=== PATIENT | female | born 1940 | race Hispanic/Latino ===

== ENCOUNTER 2018-11-19 12:32 | Emergency (ER) | payer MEDICARE ==
--- NOTE | 2018-11-19 13:56 | RAD REPORT ---
EXAM DESCRIPTION: RAD -Hand Left 3 View - 11/19/2018 1:50 pm CLINICAL HISTORY: Left hand pain FINDINGS: No fracture or dislocation is seen. The bones are osteoporotic. 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 Mild osteoarthritis involves PIP joints.
--- NOTE | 2018-11-19 13:57 | RAD REPORT ---
EXAM DESCRIPTION: RAD - Wrist Left 3 View - 11/19/2018 1:51 pm CLINICAL HISTORY: Left wrist pain FINDINGS: No fracture or dislocation is seen. The bones are osteoporotic. Small subchondral cysts are noted about the wrist.
[2018-11-19] MEDS ORDERED: TRAMADOL HCL 50 MG TAB ONE (14:53)
[2018-11-19] MEDS ORDERED: IBUPROFEN 400 MG TAB ONE (14:54)
--- NOTE | 2018-11-19 14:54 | EDPHYS ---
Physician Documentation [facility] Name: Monica Fleming Age: 78 yrs Sex: Female : 1940 Arrival Date: 11/19/2018 Time: 12:33 Bed 12 Private MD: Eugenio Jaimes ED Physician Marcel Syed HPI: 11/19 14:47 This 78 yrs old Female presents to ER via Ambulatory with complaints of Hand cp Injury. 14:48 The patient or guardian reports pain, swelling, tenderness. The complaints affect the cp left wrist diffusely. Context: resulted from lifting weights while participating in water exercises. Onset: The symptoms/episode began/occurred 3 day(s) ago. Associated signs and symptoms: Pertinent negatives: cyanosis distally, decreased sensation distally. Historical: - Allergies: 12:45 No Known Allergies; sv - Home Meds: 12:45 alendronate 35 mg oral tab 1 tab once wkly [Active]; amlodipine 5 mg tab 1 tab once sv daily [Active]; metoprolol tartrate 50 mg Oral tab 1 tab 2 times per day [Active]; aspirin 81 mg Oral TbEC 1 tab once daily [Active]; Vitamin D3 2,000 unit oral cap daily [Active]; - PMHx: 12:45 Hypertension; sv - PSHx: 12:45 left knee; sv - Immunization history:: Adult Immunizations unknown. - Social history:: Smoking status: Patient/guardian denies using tobacco. - Ebola Screening: : No symptoms or risks identified at this time. ROS: 14:49 Eyes: Negative for injury, pain, redness, and discharge. cp 14:49 Constitutional: Negative for body aches, chills, fever, poor PO intake. 14:49 ENT: Negative for drainage from ear(s), ear pain, sore throat, difficulty swallowing, difficulty handling secretions. 14:49 Cardiovascular: Negative for chest pain, palpitations. 14:49 Respiratory: Negative for cough, shortness of breath, wheezing. 14:49 Abdomen/GI: Negative for abdominal pain, nausea, vomiting, and diarrhea. 14:49 MS/extremity: Positive for pain, swelling, tenderness, of the left wrist, Negative for decreased range of motion, deformity, paresthesias. 14:49 Skin: Negative for cellulitis, rash. 14:49 All other systems are negative. Exam: 14:50 Head/Face: Normocephalic, atraumatic. cp 14:50 Constitutional: The patient appears in no acute distress, alert, awake, non-toxic, well developed, well nourished. 14:50 Eyes: Periorbital structures: appear normal, Conjunctiva: normal, no exudate, no injection, Lids and lashes: appear normal, bilaterally. 14:50 ENT: External ear(s): are unremarkable, Nose: is normal, Mouth: is normal, Posterior pharynx: is normal, airway is patent. 14:50 Chest/axilla: Inspection: normal. 14:50 Cardiovascular: Rate: normal. 14:50 Respiratory: the patient does not display signs of respiratory distress, Respirations: normal. 14:50 Musculoskeletal/extremity: Perfusion: the extremity is normally perfused throughout, Sensation intact. Joints: All joints are normal except the left wrist displays pain at rest, painful range of motion, swelling, tenderness. 14:50 Skin: cellulitis, is not appreciated, no rash present. Vital Signs: 12:45 BP 110 / 70; Pulse 63; Resp 16; Temp 97.3; Pulse Ox 97% ; Weight 68.04 kg; Height 5 ft. sv 0 in. (152.40 cm); Pain 9/10; 12:45 Body Mass Index 29.29 (68.04 kg, 152.40 cm) sv Procedures: 15:00 Splinting: Splint applied to left wrist using wrist splint, applied by nurse. Examined cp by me, post splint application: neurovascular intact, Patient tolerated well. MDM: 14:26 Patient medically screened. cp 14:50 Differential diagnosis: dislocation, closed fracture, contusion, sprain. cp 14:52 Data reviewed: vital signs, nurses notes, radiologic studies, plain films. cp 14:52 Test interpretation: by ED physician or midlevel provider: plain radiologic studies. cp Counseling: I had a detailed discussion with the patient and/or guardian regarding: the historical points, exam findings, and any diagnostic results supporting the discharge/admit diagnosis, radiology results, to return to the emergency department if symptoms worsen or persist or if there are any questions or concerns that arise at home. 11/19 12:47 Order name: Hand Left 3 View XRAY; Complete Time: 14:37 sv 11/19 12:47 Order name: Wrist Left (3 View) XRAY; Complete Time: 14:37 sv 11/19 14:37 Order name: Wrist Splint: left; Complete Time: 14:54 cp Administered Medications: 14:53 Drug: Ibuprofen 800 mg Route: PO; aa5 15:00 Follow up: Response: Medication administered at discharge. aa5 14:54 Drug: traMADol 50 mg Route: PO; aa5 15:00 Follow up: Response: Medication administered at discharge. aa5 Disposition: 15:11 Co-signature as Attending Physician, Marcel Syed MD I agree with the assessment and kdr plan of care. Disposition: 11/19/18 14:53 Discharged to Home. Impression: Pain in left wrist, Pain in left hand. - Condition is Stable. - Discharge Instructions: Wrist Pain, Hand Pain. - Prescriptions for Ibuprofen 800 mg Oral Tablet - take 1 tablet by ORAL route every 8 hours As needed take with food; 30 tablet. Tramadol 50 mg Oral Tablet - take 1 tablet by ORAL route every 8 hours as needed; 12 tablet. - Medication Reconciliation Form, Thank You Letter, Antibiotic Education, Prescription Opioid Use form. - Follow up: Eugenio Jaimes MD; When: 5 - 6 days; Reason: Recheck today's complaints. - Problem is new. - Symptoms have improved. Signatures: Dispatcher [employer] EDTanisha Nobles RN RN dm5 Mackenzie Ta RN RN Marcel Syed MD MD [facility] Melisa Tee RN RN aa5 Brian Walker PA PA cp Corrections: (The following items were deleted from the chart) 14:55 14:53 11/19/2018 14:53 Discharged to Home. Impression: Pain in left wrist. Condition is cp Stable. Forms are Medication Reconciliation Form, Thank You Letter, Antibiotic Education, Prescription Opioid Use. Follow up: Eugenio Jaimes; When: 5 - 6 days; Reason: Recheck today's complaints. Problem is new. Symptoms have improved. cp 15:02 14:55 11/19/2018 14:53 Discharged to Home. Impression: Pain in left wrist; Pain in left dm5 hand. Condition is Stable. Discharge Instructions: Wrist Pain, Hand Pain. Prescriptions for Ibuprofen 800 mg Oral Tablet - take 1 tablet by ORAL route every 8 hours As needed take with food; 30 tablet, Tramadol 50 mg Oral Tablet - take 1 tablet by ORAL route every 8 hours as needed; 12 tablet. and Forms are Medication Reconciliation Form, Thank You Letter, Antibiotic Education, Prescription Opioid Use. Follow up: Eugenio Jaimes; When: 5 - 6 days; Reason: Recheck today's complaints. Problem is new. Symptoms have improved. cp
--- NOTE | 2018-11-19 14:54 | ER ---
Nurse's Notes [facility] Name: Monica Fleming Age: 78 yrs Sex: Female : 1940 Arrival Date: 11/19/2018 Time: 12:33 Bed 12 Private MD: Eugenio Jaimes Diagnosis: Pain in left wrist;Pain in left hand Presentation: 11/19 12:42 Presenting complaint: Patient states: left hand pain and swelling started Thursday after sv exercising with weights. Transition of care: patient was not received from another setting of care. Onset of symptoms was November 16, 2018. Care prior to arrival: None. 12:42 Method Of Arrival: Ambulatory sv 12:42 Acuity: KATHRINE 4 sv 14:28 Risk Assessment: Do you want to hurt yourself or someone else? Patient reports no aa5 desire to harm self or others. Initial Sepsis Screen: Does the patient meet any 2 criteria? No. Patient's initial sepsis screen is negative. Does the patient have a suspected source of infection? No. Patient's initial sepsis screen is negative. Triage Assessment: 12:46 General: Appears in no apparent distress. uncomfortable, Behavior is calm, cooperative, sv appropriate for age. Pain: Complains of pain in left wrist and left hand Pain currently is 9 out of 10 on a pain scale. Neuro: Level of Consciousness is awake, alert, obeys commands, Oriented to person, place, time, situation, Gait is steady. Respiratory: Respiratory effort is even, unlabored, Respiratory pattern is regular, symmetrical. Musculoskeletal: Swelling present in left wrist and left hand. Historical: - Allergies: 12:45 No Known Allergies; sv - Home Meds: 12:45 alendronate 35 mg oral tab 1 tab once wkly [Active]; amlodipine 5 mg tab 1 tab once sv daily [Active]; metoprolol tartrate 50 mg Oral tab 1 tab 2 times per day [Active]; aspirin 81 mg Oral TbEC 1 tab once daily [Active]; Vitamin D3 2,000 unit oral cap daily [Active]; - PMHx: 12:45 Hypertension; sv - PSHx: 12:45 left knee; sv - Immunization history:: Adult Immunizations unknown. - Social history:: Smoking status: Patient/guardian denies using tobacco. - Ebola Screening: : No symptoms or risks identified at this time. Screenin:28 Abuse screen: Denies threats or abuse. Nutritional screening: No deficits noted. aa5 Tuberculosis screening: No symptoms or risk factors identified. Fall Risk None identified. Assessment: 14:28 General: Appears comfortable, Behavior is calm, cooperative. Pain: Complains of pain in aa5 left hand and left wrist Pain currently is 8 out of 10 on a pain scale. Quality of pain is described as aching, Aggravated by ROM to left wrist. Neuro: Level of Consciousness is awake, alert, obeys commands, Oriented to person, place, time, situation. Cardiovascular: Heart tones S1 S2 present Capillary refill < 3 seconds is brisk in bilateral fingers Rhythm is regular. Respiratory: Airway is patent Respiratory effort is even, unlabored, Respiratory pattern is regular, symmetrical. GI: No signs and/or symptoms were reported involving the gastrointestinal system. : No signs and/or symptoms were reported regarding the genitourinary system. EENT: No signs and/or symptoms were reported regarding the EENT system. Derm: Skin is pink, warm \T\ dry. Musculoskeletal: Swelling present in left wrist. 14:54 Reassessment: Wrist splint applied to left wrist, pt tolerated well. . aa5 14:54 Reassessment: Patient is alert, oriented x 3, equal unlabored respirations, skin aa5 warm/dry/pink. Vital Signs: 12:45 BP 110 / 70; Pulse 63; Resp 16; Temp 97.3; Pulse Ox 97% ; Weight 68.04 kg; Height 5 ft. sv 0 in. (152.40 cm); Pain 9/10; 12:45 Body Mass Index 29.29 (68.04 kg, 152.40 cm) sv ED Course: 12:33 Patient arrived in ED. ag5 12:33 Eugenio Jaimes MD is Private Physician. ag5 12:42 Triage completed. sv 12:46 Arm band placed on Patient placed in waiting room, Patient notified of wait time. sv 13:43 Hand Left 3 View XRAY In Process Unspecified. EDMS 13:43 Wrist Left (3 View) XRAY In Process Unspecified. EDMS 14:26 Brian Walker PA is PHCP. cp 14:26 Marcel Syed MD is Attending Physician. cp 14:28 Patient has correct armband on for positive identification. aa5 14:29 Melisa Tee, RN is Primary Nurse. aa5 14:52 Eugenio Jaimes MD is Referral Physician. cp 15:00 No provider procedures requiring assistance completed. Patient did not have IV access aa5 during this emergency room visit. Administered Medications: 14:53 Drug: Ibuprofen 800 mg Route: PO; aa5 15:00 Follow up: Response: Medication administered at discharge. aa5 14:54 Drug: traMADol 50 mg Route: PO; aa5 15:00 Follow up: Response: Medication administered at discharge. aa5 Outcome: 14:53 Discharge ordered by . cp 15:01 Discharged to home dm5 15:01 Condition: good 15:01 Discharge instructions given to patient, family, Instructed on discharge instructions, follow up and referral plans. medication usage, Demonstrated understanding of instructions, follow-up care, medications, Prescriptions given X 2. 15:02 Patient left the ED. dm5 Signatures: Dispatcher [employer] EDDC Tanisha Lucas RN RN 5 Mackenzie Ta RN RN sv Calderon, Audri, RN RN aa5 Brian Walker PA PA Tresa Herrera [facility]
[2018-11-19 15:20] VITALS: BP 110/70; TEMP 97.3; O2SAT 97
== END 2018-11-19 15:02 | disposition home or self-care (01) ==
LOC: ER 12:32
DX: M79.642 Pain in left hand (principal); I10 Essential (primary) hypertension; Z79.82 Long term (current) use of aspirin
CPT/HCPCS: 99283

== ENCOUNTER 2022-10-15 10:44 | Emergency (ER) | payer OTHER ==
--- OUTSIDE RECORDS SUMMARY | 2022-10-15 10:51 | XMS REPORT | Clinical Summary ---
:1940 Author Organization [facility] MD [facility] Address [address] [place] [address] Care Team Providers Name Role Phone Osmel Burger MD Unavailable Shiraz Pritchard MD Primary Care Provider Allergies No known active allergies Medications Medication Sig Dispensed Refills Start Date End Date Status aspirin 81 mg chewable Chew 1 tablet 36 tablet 5 11/12/2019 Active tabletIndications: (81 mg) daily. prevention of cerebrovascular accident amLODIPine (NORVASC) 5 TAKE 1 TABLET BY 30 tablet 3 11/16/2020 Active mg tabletIndications: MOUTH EVERY DAY. Acute lymphoblastic HOLD FOR leukemia, in remission SYSTOLIC BLOOD PRESSUE LESS THAN 110 MMHG LORazepam (Ativan) 0.5 Take 1 tablet 1 tablet 0 02/18/2021 Active mg tablet (0.5 mg) by mouth daily. Additional Information Patient not taking. Reason: No longer taking, Reported on 05/16/2022 alendronate (FOSAMAX) Take 1 tablet 0 12/05/2021 Active 70 mg tablet by mouth once a week. rosuvastatin TAKE 1 TABLET(5 90 tablet 0 02/19/2022 Active (CRESTOR) 5 mg MG) BY MOUTH AT tabletIndications: BEDTIME Acute lymphoid leukemia metFORMIN Take 1,000 mg 0 Active (GLUCOPHAGE) 1000 mg by mouth 2 tablet (two) times a day with meals. metoprolol tartrate Take 1 tablet 0 05/27/2022 Active (LOPRESSOR) 37.5 mg (37.5 mg) by tab tablet mouth twice daily. INV-() Take 1 tablet 90 tablet 0 08/15/2022 Active PONATinib 15 mg (15 mg) by 023 tabletIndications: mouth daily for Acute lymphoblastic 90 days. leukemia, in remission metoprolol tartrate Take 1 tablet 0 11/11/201908/17 Discontinued (Dose (LOPRESSOR) 25 mg (25 mg) by 022 a djustment) tabletIndications: mouth twice hypertension daily. Hold for systolic blood pressure less than 110 mmHg or heart rate less than 55 beats per minute. rosuvastatin Take 1 tablet 90 tablet 3 08/24/2020 Di scontinued (Crestor) 5 mg (5 mg) by mouth 022 (Reorder) tabletIndications: at bedtime. Acute lymphoid leukemia metoprolol tartrate Take 25 mg by 0 09/20/202002/14 Discontinued (Not 37.5 mg tab mouth twice 022 Applic able) daily. amLODIPine (NORVASC) Take 1 tablet 0 05/07/202101/11 Discontinued (Not 10 mg tablet by mouth daily. 022 A pplicable) omeprazole (PriLOSEC) Take 20 mg by 0 01/11 Discontinued (Not 20 mg capsule mouth every 022 Appl icable) morning before breakfast. meloxicam (MOBIC) 7.5 Take 7.5 mg by 0 01/11 Discontinued mg tablet mouth daily. 022 (Therap y completed) INV-() Take 1 tablet 90 tablet 0 08/16/2021 PONATinib 15 mg (15 mg) by 022 tabletIndications: mouth daily for Acute lymphoblastic 90 days. leukemia, in remission rosuvastatin Take 1 tablet 90 tablet 0 11/15/2021 Di scontinued (Crestor) 5 mg (5 mg) by mouth 022 tabletIndications: at bedtime. Acute lymphoid leukemia INV-() Take 1 tablet 90 tablet 0 11/15/2021 PONATinib 15 mg (15 mg) by 022 tabletIndications: mouth daily for Acute lymphoblastic 90 days. leukemia, in remission amLODIPine (NORVASC) Take 1 tablet 0 11/26/202101/11 Discontinued (Dose 10 mg tablet by mouth daily. 022 a djustment) INV-() Take 1 tablet 90 tablet 0 02/14/2022 PONATinib 15 mg (15 mg) by 022 tabletIndications: mouth daily for Acute lymphoblastic 90 days. leukemia, in remission INV-() Take 1 tablet 90 tablet 0 05/16/2022 PONATinib 15 mg (15 mg) by 022 tabletIndications: mouth daily for Acute lymphoblastic 90 days. leukemia, in remission Active Problems Patient Care Coordination Note Formatting of this note might be differe nt from the original. 01/27/20: Pt needs to have caregiver with her during all appointments as she needs bone marrow procedure with versed and has multiple other appointments the same day (labs, visit with Dr. Pritchard, lumbar p uncture, and ATC appointment to start bl inatumomab therapy) Patient is mainly Romansh speaking only and also needs wheelchair. 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 Patient immunocompromised 10/30/2019 Anemia due to antineoplastic chemotherapy 10/30/2019 Other secondary thrombocytopenia 10/30/2019 Essential (primary) hypertension 10/30/2019 Encounters Date Type Specialty Care Team Description 2022 Orders Only Leukemia Marysol Allen PA 08/18/2022 Orders Only Leukemia Mario Kaplan lymph oblastic Holger ESTRADA, RN leukemia, [place] (Primary Dx) 08/15/2022 Office Visit Shiraz Murry Acute lymph oblastic leukemia (Primary Dx); Acute lymphobla stic leukemia, in remission; Essential (prim winnie) hypertension; Anemia due to a ntineoplastic chemotherapy; Patient immunoc ompromised 08/15/2022 Hospital Encounter Lab Shiraz Pritchard Acute lymphoblastic leukemia, in re [place] 08/15/2022 Documentation Leukemia Mario Kaplan II, RN 08/15/2022 Orders Only Shiraz Murry Acute lymph oblastic leukemia, in re [place] (Primary Dx) 08/15/2022 Orders Only Leukemia Mariaa Gonzalez, PharmD 08/15/2022 Travel 05/29/2022 Orders Only Leukemia Marysol Allen, PA 05/21/2022 Orders Only Leukemia Alexander Kaplano Acute lymph oblastic M II, RN leukemia, [place] (Primary Dx) 05/16/2022 Office Visit Shiraz Murry, Acute lymph oblastic leukemia, in remission (Primary Dx); Acute lymphobla stic leukemia; Patient immunoc ompromised; Anemia due to a ntineoplastic chemotherapy; Essential (prim winnie) hypertension 05/16/2022 Hospital Encounter Lab Rosales [place] Acute l ymphoblastic C, PHD INTERN leukemia 05/16/2022 Documentation Leukemia DelfabyaAlexandero M II, RN 05/16/2022 Orders Only Leukemia Shiraz Pritchard, Acute lymph oblastic leukemia, [place] (Primary Dx) 05/16/2022 Orders Only Leukemia Anthony Selena Drew, PharmD 05/16/2022 Orders Only Leukemia Mario Kaplan M II, RN 05/16/2022 Travel 05/09/2022 Orders Only Leukemia Palomo Jay, [facility] 05/09/2022 Orders Only Leukemia Delfabya Mario Acute lymph oblastic M II, RN leukemia, in [place] (Primary Dx) 02/24/2022 Orders Only Leukemia Areli Allena N, PA 02/20/2022 Orders Only Leukemia Rosales, Abiola C, PHD INTERN 02/18/2022 Refill Leukemia Alejandro Marysol Acute lympho id leukemia N, PA 02/18/2022 Orders Only Leukemia Rosales, [place] C, PHD INTERN 02/14/2022 Hospital Encounter Bone Marrow Shiraz Pritchard, Acute lymphoblastic leukemia, in remission; Moffett chromosome-positive acute l ymphoblastic leukemia Greta Day PA 02/14/2022 Office Visit Leukemia Shiraz Pritchard [place] a chromosome- positive acute lymphoblastic leukemia (Primary Dx); Acute lymphobla stic leukemia; Acute lymphobla stic leukemia, in remission; Patient immunoc ompromised; Anemia due to a ntineoplastic chemotherapy; Essential (prim winnie) hypertension 02/14/2022 Hospital Encounter Lab Shiraz Pritchard Acute lymphoblastic leukemia, in [place] 02/14/2022 Orders Only Leukemia Mario Kaplan Acute lymph oblastic M SEAN, RN leukemia, [place] (Primary Dx) 02/14/2022 Orders Only Bone Marrow Greta Day PA 02/14/2022 Orders Only Leukemia Shiraz Pritchard Acute lymph duarteastic leukemia, [place] (Primary Dx) 02/14/2022 Travel 02/07/2022 Telephone 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 11/15/2021 Office Visit Leukemia Shiraz Pritchard, Acute lymph oblastic leukemia, in remission (Primary Dx); MD Holman lymphobla stic leukemia; Acute lymphoid leukemia; Patient immunoc ompromised; Anemia due to a ntineoplastic chemotherapy; Essential (prim winnie) hypertension 11/15/2021 Hospital Encounter Lab Shiraz Pritchard Acute lymphoblastic leukemia 11/15/2021 Documentation Leukemia Queenie Johnson RN 11/15/2021 Orders Only Leukemia River Johnson lymphobla sheryl Patel RN leukemia, i n remission (Primary Dx) 11/15/2021 Orders Only Leukemia Shiraz Pritchard Acute lymph duarteastic leukemia, [place] (Primary Dx) 11/15/2021 Travel 10/15/2021 Refill Leukemia Akinovsky, Acute lymphoid leukemia KAMILA Omalley after 10/15/2021 Immunizations Name Administration Dates Next Due Pfizer SARS-CoV-2 Vaccination (Purple Cap) 11/24/2020, 10/13 Surgical History Surgery Date Site/Laterality Comments KNEE ARTHROPLASTY 10/12/2012 - 10/11/2013 left VEIN SURGERY varicose LIPOMA RESECTION on back Medical History Medical History Date Comments Hypertension 2006 Osteoporosis 1994 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 Never 11/17/2019 How many drinks containing alcohol do you have on a typical Not asked day when you are drinking? How often do you have six or more drinks on one occasion? No t asked Sex Assigned at Date Recorded Not on file Job Start Date Occupation Industry Not on file Not on file Not on file Obstetrics History Para Term AB IAB SAB Ectopic Multiple Living Live Births 3 2 2 2 2 Date Outcome GA Total Labor/2nd/3rd Weight Sex Delivery Anes PTL Estella A 1 A5 Name Clin Labor Term Term Last Filed Vital Signs Vital Sign Reading Time Taken Comments Blood Pressure 137/83 08/15/2022 9:53 AM CDT Pulse 98 08/15/2022 9:53 AM CDT Temperature 36.7 C (98.1 F) 08/15/2022 9:53 AM CDT Respiratory Rate 18 08/15/2022 9:53 AM CDT Oxygen Saturation 94% 08/15/2022 9:53 AM CDT Inhaled Oxygen Concentration - - Weight 67.8 kg (149 lb 7.6 oz) 08/15/2022 9:53 AM CDT Height - - Body Mass Index 29.35 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 Plan of Treatment Date Type Specialty Care Team Description 11/14/2022 Appointment Lab Shiraz Pritchard MD [address], [place] [address] (Levi macario) 11/14/2022 Follow-Up Leukemia Shiraz Pritchard MD [address], [place] [address] (Levi rk) 11/14/2022 Appointment Bone Marrow Shiraz Pritchard MD [address], [place] [address] (Levi macario) Health Maintenance Due Date Last Done Comments COVID-19 Vaccination (3 - Pfizer risk 12/22/2020 11/24/2020 , 11/03/2020 series) Medical Devices Implanted Type Area Tip Banding Machine Operator Device Identifier Shelf Exp iration Model / Date Serial / L ot Knee Implant Knee Procedures Procedure Name Priority Date/Time Associated Diagnosis Comme nts TMP INTERPRETATION Routine 08/15/2022 8:48 Result s for this ANTIBODY SCREEN NEGATIVE AM CDT pro cedure are in the results section. CLOT EXPIRATION DATE Routine 08/15/2022 8:48 Resu lts for this AM CDT procedure are i n the results section. .GLOMERULAR FILTRATION Routine 08/15/2022 8:48 Acute lymphobla stic Results for this RATE AM CDT leukemia, in procedure are i n remission the results section. SERUM CREATININE Routine 08/15/2022 8:48 Acute lymphoblastic R esults for this AM CDT leukemia, in procedure are i n remission the results section. MANUAL DIFFERENTIAL STAT 08/15/2022 8:48 Acute lymphoblasti c Results for this AM CDT leukemia, in procedure are i n remission the results section. Results CBC STAT 08/15/2022 8:48 Acute lymphoblastic Resul ts for this AM CDT leukemia, in procedure are i n remission the results section. ANTIBODY SCREEN Routine 08/15/2022 8:48 Acute lymphoblastic Re sults for this AM CDT leukemia, in procedure are i n remission the results section. ABORH Routine 08/15/2022 8:48 Acute lymphoblastic Resul ts for this AM CDT leukemia, in procedure are i n remission the results section. TRIGLYCERIDES Routine 08/15/2022 8:48 Acute lymphoblastic Resu lts for this AM CDT leukemia, in procedure are i n remission the results section. LIPASE LEVEL Routine 08/15/2022 8:48 Acute lymphoblastic Resul ts for this AM CDT leukemia, in procedure are i n remission the results section. AMYLASE LEVEL Routine 08/15/2022 8:48 Acute lymphoblastic Resu lts for this AM CDT leukemia, in procedure are i n remission the results section. ASPARTATE Routine 08/15/2022 8:48 Acute lymphoblastic Resul ts for this AMINOTRANSFERASE AM CDT leukemia, in procedure a re in remission the results section. MAGNESIUM LEVEL Routine 08/15/2022 8:48 Acute lymphoblastic Re sults for this AM CDT leukemia, in procedure are i n remission the results section. ELECTROLYTE PANEL Routine 08/15/2022 8:48 Acute lymphoblastic Results for this AM CDT leukemia, in procedure are i n remission the results section. ALANINE AMINOTRANSFERASE Routine 08/15/2022 8:48 Acute lymphob lastic Results for this AM CDT leukemia, in procedure are i n remission the results section. LACTATE DEHYDROGENASE Routine 08/15/2022 8:48 Acute lymphoblas tic Results for this AM CDT leukemia, in procedure are i n remission the results section. ALKALINE PHOSPHATASE Routine 08/15/2022 8:48 Acute lymphoblast ic Results for this AM CDT leukemia, in procedure are i n remission the results section. FRACTIONATED BILIRUBIN Routine 08/15/2022 8:48 Acute lymphobla stic Results for this AM CDT leukemia, in procedure are i n remission the results section. URIC ACID Routine 08/15/2022 8:48 Acute lymphoblastic Resul ts for this AM CDT leukemia, in procedure are i n remission the results section. SERUM CREATININE Routine 08/15/2022 8:48 Acute lymphoblastic AM CDT leukemia, in remission BLOOD UREA NITROGEN Routine 08/15/2022 8:48 Acute lymphoblasti c Results for this AM CDT leukemia, in procedure are i n remission the results section. GLUCOSE, RANDOM Routine 08/15/2022 8:48 Acute lymphoblastic Re sults for this AM CDT leukemia, in procedure are i n remission the results section. PHOSPHORUS LEVEL Routine 08/15/2022 8:48 Acute lymphoblastic R esults for this AM CDT leukemia, in procedure are i n remission the results section. CALCIUM LEVEL TOTAL Routine 08/15/2022 8:48 Acute lymphoblasti c Results for this AM CDT leukemia, in procedure are i n remission the results section. ALBUMIN LEVEL Routine 08/15/2022 8:48 Acute lymphoblastic Resu lts for this AM CDT leukemia, in procedure are i n remission the results section. TOTAL PROTEIN Routine 08/15/2022 8:48 Acute lymphoblastic Resu lts for this AM CDT leukemia, in procedure are i n remission the results section. COMPLETE BLOOD COUNT W/ Routine 08/15/2022 8:48 Acute lymphobl astic DIFFERENTIAL AM CDT leukemia, in remission TYPE AND SCREEN Routine 08/15/2022 8:48 Acute lymphoblastic AM CDT leukemia, in remission CLOT EXPIRATION DATE Routine 05/16/2022 7:33 Resu lts for this AM CDT procedure are i n the results section. TMP INTERPRETATION Routine 05/16/2022 7:33 Result s for this ANTIBODY SCREEN NEGATIVE AM CDT pro cedure are in the results section. HP T(9;22) BCR/ABL1 Routine 05/16/2022 7:33 Re sults for this QUANTITATIVE PCR AM CDT procedure a re in INTERPRETATION AND the resul ts REPORT section. ANTIBODY SCREEN Routine 05/16/2022 7:33 Acute lymphoblastic Re sults for this AM CDT leukemia procedure are i n the results section. ABORH Routine 05/16/2022 7:33 Acute lymphoblastic Resul ts for this AM CDT leukemia procedure are i n the results section. MANUAL DIFFERENTIAL STAT 05/16/2022 7:33 Acute lymphoblasti c Results for this AM CDT leukemia procedure are i n the results section. Results CBC STAT 05/16/2022 7:33 Acute lymphoblastic Resul ts for this AM CDT leukemia procedure are i n the results section. .GLOMERULAR FILTRATION Routine 05/16/2022 7:33 Acute lymphobla stic Results for this RATE AM CDT leukemia procedure are i n the results section. SERUM CREATININE Routine 05/16/2022 7:33 Acute lymphoblastic R esults for this AM CDT leukemia procedure are i n the results section. COMPLETE BLOOD COUNT W/ Routine 05/16/2022 7:33 Acute lymphobl astic DIFFERENTIAL AM CDT leukemia TYPE AND SCREEN Routine 05/16/2022 7:33 Acute lymphoblastic AM CDT leukemia IMMUNOGLOBULIN G SERUM Routine 05/16/2022 7:33 Acute lymphobla stic Results for this AM CDT leukemia procedure are i n the results section. IMMUNOGLOBULIN M SERUM Routine 05/16/2022 7:33 Acute lymphobla stic Results for this AM CDT leukemia procedure are i n the results section. IMMUNOGLOBULIN A SERUM Routine 05/16/2022 7:33 Acute lymphobla stic Results for this AM CDT leukemia procedure are i n the results section. MAGNESIUM LEVEL Routine 05/16/2022 7:33 Acute lymphoblastic Re sults for this AM CDT leukemia procedure are i n the results section. ELECTROLYTE PANEL Routine 05/16/2022 7:33 Acute lymphoblastic Results for this AM CDT leukemia procedure are i n the results section. ALANINE AMINOTRANSFERASE Routine 05/16/2022 7:33 Acute lymphob lastic Results for this AM CDT leukemia procedure are i n the results section. LACTATE DEHYDROGENASE Routine 05/16/2022 7:33 Acute lymphoblas tic Results for this AM CDT leukemia procedure are i n the results section. ALKALINE PHOSPHATASE Routine 05/16/2022 7:33 Acute lymphoblast ic Results for this AM CDT leukemia procedure are i n the results section. FRACTIONATED BILIRUBIN Routine 05/16/2022 7:33 Acute lymphobla stic Results for this AM CDT leukemia procedure are i n the results section. URIC ACID Routine 05/16/2022 7:33 Acute lymphoblastic Resul ts for this AM CDT leukemia procedure are i n the results section. SERUM CREATININE Routine 05/16/2022 7:33 Acute lymphoblastic AM CDT leukemia BLOOD UREA NITROGEN Routine 05/16/2022 7:33 Acute lymphoblasti c Results for this AM CDT leukemia procedure are i n the results section. GLUCOSE, RANDOM Routine 05/16/2022 7:33 Acute lymphoblastic Re sults for this AM CDT leukemia procedure are i n the results section. PHOSPHORUS LEVEL Routine 05/16/2022 7:33 Acute lymphoblastic R esults for this AM CDT leukemia procedure are i n the results section. CALCIUM LEVEL TOTAL Routine 05/16/2022 7:33 Acute lymphoblasti c Results for this AM CDT leukemia procedure are i n the results section. ALBUMIN LEVEL Routine 05/16/2022 7:33 Acute lymphoblastic Resu lts for this AM CDT leukemia procedure are i n the results section. TOTAL PROTEIN Routine 05/16/2022 7:33 Acute lymphoblastic Resu lts for this AM CDT leukemia procedure are i n the results section. HP T(9;22) BCR/ABL1 Routine 05/16/2022 7:33 Acute lymphobla stic Results for this QUANTITATIVE PCR AM CDT leukemia procedure a re in COLLECTION, BLOOD the result s section. HEMATOPATHOLOGY BONE Routine 02/14/2022 2:38 Moffett Resu lts for this MARROW DIFFERENTIAL PM CDT chromosome-positive p rocedure are in acute lymphoblastic the resu lts leukemia section. HEMATOPATHOLOGY BONE Routine 02/14/2022 2:38 Moffett Resu lts for this MARROW INTERPRETATION PM CDT chromosome-positive procedure are in acute lymphoblastic the resu lts leukemia section. HP FC MRD B ALL Routine 02/14/2022 2:36 INTERPRETATION AND PM CDT REPORT BENIGNO PRARISH T(9;22) BCR/ABL1 Routine 02/14/2022 2:36 QUANTITATIVE PCR PM CDT INTERPRETATION AND REPORT HP MOLECULAR BLOOD Routine 02/14/2022 2:36 Result s for this COLLECTION PM CDT procedure are i n the results section. HP FC FLOW CYTOMETRY Routine 02/14/2022 2:36 Resu lts for this BLOOD COLLECTION PM CDT procedure a re in the results section. HP CG BCR/ABL1 T(9;22) Routine 02/14/2022 2:36 FISH INTERPRETATION AND PM CDT REPORT HP CG CHROMOSOME Routine 02/14/2022 2:36 ANALYSIS INTERPRETATION PM CDT AND REPORT HP CYTOGENETICS BLOOD Routine 02/14/2022 2:36 Res ults for this COLLECTION PM CDT procedure are i n the results section. ADAPTIVE CLONOSEQ-SEND Routine 02/14/2022 2:36 Moffett Re sults for this OUT, BONE MARROW PM CDT chromosome-positive proc edure are in acute lymphoblastic the resu lts leukemia section. HP CG CHROMOSOME Routine 02/14/2022 2:36 Acute lymphoblastic R esults for this ANALYSIS COLLECTION, PM CDT leukemia, in procedu re are in NONBLOOD remission the results section. HP TP53 COLLECTION, Routine 02/14/2022 2:36 Acute lymphobla stic Results for this NONBLOOD PM CDT leukemia, in procedure are i n remission the results section. HP NOTCH1 - EXONS 26, Routine 02/14/2022 2:36 Acute lymphob lastic Results for this 27, 34 COLLECTION, PM CDT leukemia, in procedure are in NONBLOOD remission the results section. HP T(9;22) BCR/ABL1 Routine 02/14/2022 2:36 Acute lymphobla stic Results for this QUANTITATIVE PCR PM CDT leukemia, in procedure a re in COLLECTION, NONBLOOD remission the res ults section. HP CG BCR/ABL1 T(9;22) Routine 02/14/2022 2:36 Acute lymphobla stic Results for this FISH COLLECTION, PM CDT leukemia, in procedure a re in NONBLOOD remission the results section. HP FC MRD B ALL Routine 02/14/2022 2:36 Acute lymphoblastic Re sults for this COLLECTION, NONBLOOD PM CDT leukemia, in procedu re are in remission the results section. TX DIAGNOSTIC BONE Routine 02/14/2022 2:22 Acute lymphoblastic Results for this MARROW ASPIRATIONS PM CDT leukemia, in procedure are in remission the results section. TMP INTERPRETATION Routine 02/14/2022 7:55 Result s for this ANTIBODY SCREEN NEGATIVE AM CDT pro cedure are in the results section. CLOT EXPIRATION DATE Routine 02/14/2022 7:55 Resu lts for this AM CDT procedure are i n the results section. ANTIBODY SCREEN Routine 02/14/2022 7:55 Acute lymphoblastic Re sults for this AM CDT leukemia, in procedure are i n remission the results section. ABORH Routine 02/14/2022 7:55 Acute lymphoblastic Resul ts for this AM CDT leukemia, in procedure are i n remission the results section. .GLOMERULAR FILTRATION Routine 02/14/2022 7:55 Acute lymphobla stic Results for this RATE AM CDT leukemia, in procedure are i n remission the results section. SERUM CREATININE Routine 02/14/2022 7:55 Acute lymphoblastic R esults for this AM CDT leukemia, in procedure are i n remission the results section. MANUAL DIFFERENTIAL Routine 02/14/2022 7:55 Acute lymphoblasti c Results for this AM CDT leukemia, in procedure are i n remission the results section. Results CBC STAT 02/14/2022 7:55 Acute lymphoblastic Resul ts for this AM CDT leukemia, in procedure are i n remission the results section. TRIGLYCERIDES Routine 02/14/2022 7:55 Acute lymphoblastic Resu lts for this AM CDT leukemia, in procedure are i n remission the results section. LIPASE LEVEL Routine 02/14/2022 7:55 Acute lymphoblastic Resul ts for this AM CDT leukemia, in procedure are i n remission the results section. AMYLASE LEVEL Routine 02/14/2022 7:55 Acute lymphoblastic Resu lts for this AM CDT leukemia, in procedure are i n remission the results section. MAGNESIUM LEVEL Routine 02/14/2022 7:55 Acute lymphoblastic Re sults for this AM CDT leukemia, in procedure are i n remission the results section. ELECTROLYTE PANEL Routine 02/14/2022 7:55 Acute lymphoblastic Results for this AM CDT leukemia, in procedure are i n remission the results section. ALANINE AMINOTRANSFERASE Routine 02/14/2022 7:55 Acute lymphob lastic Results for this AM CDT leukemia, in procedure are i n remission the results section. LACTATE DEHYDROGENASE Routine 02/14/2022 7:55 Acute lymphoblas tic Results for this AM CDT leukemia, in procedure are i n remission the results section. ALKALINE PHOSPHATASE Routine 02/14/2022 7:55 Acute lymphoblast ic Results for this AM CDT leukemia, in procedure are i n remission the results section. FRACTIONATED BILIRUBIN Routine 02/14/2022 7:55 Acute lymphobla stic Results for this AM CDT leukemia, in procedure are i n remission the results section. URIC ACID Routine 02/14/2022 7:55 Acute lymphoblastic Resul ts for this AM CDT leukemia, in procedure are i n remission the results section. SERUM CREATININE Routine 02/14/2022 7:55 Acute lymphoblastic AM CDT leukemia, in remission BLOOD UREA NITROGEN Routine 02/14/2022 7:55 Acute lymphoblasti c Results for this AM CDT leukemia, in procedure are i n remission the results section. GLUCOSE, RANDOM Routine 02/14/2022 7:55 Acute lymphoblastic Re sults for this AM CDT leukemia, in procedure are i n remission the results section. PHOSPHORUS LEVEL Routine 02/14/2022 7:55 Acute lymphoblastic R esults for this AM CDT leukemia, in procedure are i n remission the results section. CALCIUM LEVEL TOTAL Routine 02/14/2022 7:55 Acute lymphoblasti c Results for this AM CDT leukemia, in procedure are i n remission the results section. 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 TMP INTERPRETATION Routine 11/15/2021 8:22 Result s for this ANTIBODY SCREEN NEGATIVE AM CAR VARNISHER pro cedure are in the results section. BENIGNO PARRISH T(9;22) BCR/ABL1 Routine 11/15/2021 8:22 QUANTITATIVE PCR AM CAR VARNISHER INTERPRETATION AND REPORT ANTIBODY SCREEN Routine 11/15/2021 8:22 Acute lymphoblastic Re sults for this AM [employer] VARNISHER leukemia procedure are i n the results section. ABORH Routine 11/15/2021 8:22 Acute lymphoblastic Resul ts for this AM [employer] VARNISHER leukemia procedure are i n the results section. MANUAL DIFFERENTIAL STAT 11/15/2021 8:22 Acute lymphoblasti c Results for this AM [employer]ARNISHER leukemia procedure are i n the results section. Results CBC STAT 11/15/2021 8:22 Acute lymphoblastic Resul ts for this AM [employer]ARNISHER leukemia procedure are i n the results section. .GLOMERULAR FILTRATION Routine 11/15/2021 8:22 Acute lymphobla stic Results for this RATE AM [employer] VARNISHER leukemia procedure are i n the results section. SERUM CREATININE Routine 11/15/2021 8:22 Acute lymphoblastic R esults for this AM [employer]ARNISHER leukemia procedure are i n the results section. COMPLETE BLOOD COUNT W/ Routine 11/15/2021 8:22 Acute lymphobl astic DIFFERENTIAL AM [employer] VARNISHER leukemia TYPE AND SCREEN Routine 11/15/2021 8:22 Acute lymphoblastic AM CAR VARNISHER leukemia IMMUNOGLOBULIN G SERUM Routine 11/15/2021 8:22 Acute lymphobla stic Results for this AM [employer]ARNISHER leukemia procedure are i n the results section. IMMUNOGLOBULIN M SERUM Routine 11/15/2021 8:22 Acute lymphobla stic Results for this AM [employer]ISHER leukemia procedure are i n the results section. IMMUNOGLOBULIN A SERUM Routine 11/15/2021 8:22 Acute lymphobla stic Results for this AM [employer]ARNISHER leukemia procedure are i n the results section. MAGNESIUM LEVEL Routine 11/15/2021 8:22 Acute lymphoblastic Re sults for this AM [employer]ISHER leukemia procedure are i n the results section. ELECTROLYTE PANEL Routine 11/15/2021 8:22 Acute lymphoblastic Results for this AM [employer]ISHER leukemia procedure are i n the results section. ALANINE AMINOTRANSFERASE Routine 11/15/2021 8:22 Acute lymphob lastic Results for this AM [employer]ARNISHER leukemia procedure are i n the results section. LACTATE DEHYDROGENASE Routine 11/15/2021 8:22 Acute lymphoblas tic Results for this AM [employer]ISHER leukemia procedure are i n the results section. ALKALINE PHOSPHATASE Routine 11/15/2021 8:22 Acute lymphoblast ic Results for this AM [employer]ISHER leukemia procedure are i n the results section. FRACTIONATED BILIRUBIN Routine 11/15/2021 8:22 Acute lymphobla stic Results for this AM [employer]ISHER leukemia procedure are i n the results section. URIC ACID Routine 11/15/2021 8:22 Acute lymphoblastic Resul ts for this AM [employer]ISHER leukemia procedure are i n the results section. SERUM CREATININE Routine 11/15/2021 8:22 Acute lymphoblastic AM [employer]ISHER leukemia BLOOD UREA NITROGEN Routine 11/15/2021 8:22 Acute lymphoblasti c Results for this AM [employer]ARNISHER leukemia procedure are i n the results section. GLUCOSE, RANDOM Routine 11/15/2021 8:22 Acute lymphoblastic Re sults for this AM [employer]ISHER leukemia procedure are i n the results section. PHOSPHORUS LEVEL Routine 11/15/2021 8:22 Acute lymphoblastic R esults for this AM [employer]ISHER leukemia procedure are i n the results section. CALCIUM LEVEL TOTAL Routine 11/15/2021 8:22 Acute lymphoblasti c Results for this AM [employer]ISHER leukemia procedure are i n the results section. ALBUMIN LEVEL Routine 11/15/2021 8:22 Acute lymphoblastic Resu lts for this AM [employer]ARNISHER leukemia procedure are i n the results section. TOTAL PROTEIN Routine 11/15/2021 8:22 Acute lymphoblastic Resu lts for this AM [employer] VARNISHER leukemia procedure are i n the results section. BENIGNO PARRISH T(9;22) BCR/ABL1 Routine 11/15/2021 8:22 Acute lymphobla stic Results for this QUANTITATIVE PCR AM CAR VARNISHER leukemia procedure a re in COLLECTION, BLOOD the result s section. after 10/15/2021 Results Glucose, Random (08/15/2022 8:48 AM CDT)Only the most recent of4 resultswithin the time period is included. athologist Signature Glucose Random 160 70 - 199 [facility] mg/dL [facility] Comment: Effective 05/07/16, the glucose reference intervals have been updated based on [place] [employer] guidelines (Standards of Medical Care in Diabetes 2016. Diabetes Care 2016; 39: S13-S22). Fasting blood glucose: Normal: 70-99 mg/dL Impaired fasting glucose (increased risk for diabetes or pre-diabetes): 100- 125 mg/dL Diabetes mellitus: >/=126 mg/dL Random blood glucose: Normal: 70-199 mg/dL Note: Random glucose >100 mg/dL is assoc iated with increased risk for diabetes Specimen Anatomical Collection Method Collection Time Receive d Time (Source) Location / / Volume Laterality Blood 08/15/2022 8:48 AM 9:19 CDT AM CDT Narrative [facility] - 08/15 9:58 AM CDT Schedule in Fast Track Marysol N Alejandro PA LAB BLOOD ORDERABLES Performing Organization Address City/[facility] Phon e Number [facility] DIAGNOSTIC Unless otherwise noted, [address] all lab tests performed by: Division of Pathology and Laboratory Medicine [address] [place] [address] .Serum Creatinine (08/15/2022 8:48 AM CDT)Only the most recent of4 resultswithin the time period is included. P athologist Signature Creatinine 0.67 0.51 - 0.95 [facility] mg/dL DIAGNOSTIC CENTER Specimen Anatomical Collection Method Collection Time Receive d Time (Source) Location / / Volume Laterality Blood 08/15/2022 8:48 AM 9:19 CDT AM CDT Narrative [facility] - 08/15 9:58 AM CDT Schedule in Fast Track Marysol NICK LAB BLOOD ORDERABLES Performing Organization Address [facility] Phon e Number [facility] DIAGNOSTIC Unless otherwise noted, [address] all lab tests performed by: Division of Pathology and Laboratory Medicine [address] [place] [address] (ABNORMAL) .CBC (08/15/2022 8:48 AM CDT)Only the most recent of4 resultswithin the time period is included. Analysis Performed At Patho logist Time Signature WBC 10.2 4.0 - 11.0 [facility] K/uL DIAGNOSTIC CENTER RBC 6.02 (H) 4.00 - [facility] 5.50 M/uL DIAGNOSTIC CENTER Hgb 15.1 12.0 - [facility] 16.0 gm/dL DIAGNOSTIC CENTER Hct 47.0 37.0 - [facility] 47.0 % DIAGNOSTIC CENTER MCV 78 (L) 82 - 98 fL [facility] DIAGNOSTIC CENTER MCH 25.1 (L) 27.0 - [facility] 31.0 pg DIAGNOSTIC CENTER MCHC 32.1 31.0 - [facility] 36.0 gm/dL DIAGNOSTIC CENTER RDW-SD 39.9 35.1 - [facility] 46.3 fL DIAGNOSTIC CENTER RDW-CV 14.5 12.0 - [facility] 15.5 % DIAGNOSTIC CENTER Platelet count 280 140 - 440 [facility] K/uL DIAGNOSTIC CENTER MPV 10.6 (H) 4.0 - 10.4 [facility] DIAGNOSTIC CENTER INRBC 0.0 <=0.0 % [facility] DIAGNOSTIC CENTER Comment: The INRBC (instrument NRBC) value reflec ts the enumeration of nucleated red blood cells contained i n a 200uL sample of whole blood analyzed by the instrumen t. This value may differ from the NRBC value reported in a manual differential, which is based on a 100 cell differentia l. Specimen Anatomical Collection Method Collection Time Receive d Time (Source) Location / / Volume Laterality Blood 08/15/2022 8:48 AM 2 9:12 CDT AM CDT Narrative [facility] DIAGNOSTIC CENTER - 08/15 9:21 AM CDT Schedule in Fast Track Marysol NICK LAB BLOOD ORDERABLES Performing Organization Address City/State/ZIP Code Phon e Number [facility] DIAGNOSTIC Unless otherwise noted, [place], [place] [address] CENTER all lab tests performed by: Division of Pathology and Laboratory Medicine [facility] Clot Expiration Date (08/15/2022 8:48 AM CDT)Only the most recent of4 results within the time period is included. Patholo gist Method Time Signature T & S 08/18/2022 [facility] CANCER [place] Specimen Anatomical Collection Method Collection Time Receive d Time (Source) Location / / Volume Laterality Blood 08/15/2022 8:48 AM 2 CDT 10:20 AM CDT Marysol NICK BLOOD BANK TEST ORDERABLES Performing Organization Address City/[facility]/ZIP [facility] Phon e Number [facility] CANCER Unless otherwise noted, [place] [address] [place] all lab tests performed by: Division of Pathology and Laboratory Medicine [address] Glomerular Filtration Rate (08/15/2022 8:48 AM CDT)Only the most recent of4 resultswithin the time period is included. P athologist Signature eGFR 88 >=60 [facility] mL/min/1.73 DIAGNOSTIC sq. m CENTER Comment: The eGFRcr is calculated with the 2020 KD-EPI creatinine equation using creatinine, patient's age, and sex for adults 18 years of age and older. Other factors, especially muscle mass, may affect accuracy and need to be considered. According to the Kidney Disease: Improvi ng Global Outcomes (KDIGO) CKD Work Group 2012 Clinical Practice Guideline, chronic kidney disease (CKD) is defined as the abnormalities of kidney structure or function, present for more than 3 months, with implications for health. CKD should be c lassified by cause, GFR category, and albuminuria category. KDIGO guidelines provide the following GFR categories Stage Description GFR mL/min/1.73 m2 G1* Normal or high >= 90 G2* Mildly decreased 60-89 G3a Mildly to moderately decreased 45-59 G3b Moderately to severely decreased 30- 44 G4 Severely decreased 15-29 G5 Kidney failure <15 *In the absence of evidence of kidney da mage, neither G1 nor G2 fulfill criteria for CKD. Specimen Anatomical Collection Method Collection Time Receive d Time (Source) Location / / Volume Laterality Blood 08/15/2022 8:48 AM 9:19 CDT AM CDT Narrative [facility] - 08/15 9:58 AM CDT Schedule in Fast Track Marysol NICK LAB BLOOD ORDERABLES Performing Organization Address City/State/ZIP Code Phon e Number [facility] DIAGNOSTIC Unless otherwise noted, [place] [address] CENTER all lab tests performed by: Division of Pathology and Laboratory Medicine [address] [facility] Fractionated Bilirubin (08/15/2022 8:48 AM CDT)Only the most recent of4 results within the time period is included. athologist Signature Bili Total 0.3 <=1.2 mg/dL [facility] DIAGNOSTIC [place] Comment: Indocyanine Green (ICG) may cause falsel y elevated bilirubin results. Total and direct bilirubin must not be measured from samples containing indocyanine green. False elevation of total bilirubin can b e seen in patients with IgG concentrations above 28 g/L. Bili Direct <0.2 <=0.3 mg/dL [facility] D IAGNOSTIC CENTER Comment: Indocyanine Green (ICG) may cau se falsely elevated bilirubin results. Total and direct bilirubin must not be measure d from samples containing indocyanine green. Bili Indirect See Note 0.0 - 0.9 mg/dL [place] [facility] Comment: Unable to calculate Indirect Bi lirubin result due to some parameters are outside reportable range Specimen Anatomical Collection Method Collection Time Receive d Time (Source) Location / / Volume Laterality Blood 08/15/2022 8:48 AM 2 9:19 CDT AM CDT Marysol NICK LAB BLOOD ORDERABLES Performing Organization Address City/State/ZIP Code Phon e Number [facility] DIAGNOSTIC Unless otherwise noted, [place] [address] CENTER all lab tests performed by: Division of Pathology and Laboratory Medicine [address] [place] [address] TMP Interpretation Antibody Screen Negative (08/15/2022 8:48 AM CDT)Only the most recent of4 resultswithin the time period is included. [facility] systems gist Method Time Signature TMP Auto Neg At the [place] [facility] patient plasma shows no evidence of RBC alloantibodi es. Comment: LALITA CARLISLE MD - [id number] Dictated by: LALITA CARLISLE MD - [id number] Dictated Date/Time: 08.15.2022 16:59 PM CDT Transcribed Date/Time: 08.15.2022 16:59 PM CDT Electronically Signed By: MD Seda NELSON [id number] on 08.15.2022 16:59 PM Specimen Anatomical Collection Method Collection Time Receive d Time (Source) Location / / Volume Laterality Blood 08/15/2022 8:48 AM 2 CDT 10:20 AM CDT Marysol NICK BLOOD BANK TEST ORDERABLES Performing Organization Address City/State/ZIP Code Phon e Number [facility] CANCER Unless otherwise noted, [place] [address] CENTER all lab tests performed by: Division of Pathology and Laboratory Medicine [facility] ABORh (08/15/2022 8:48 AM CDT)Only the most recent of4 resultswithin the time period is included. P athologist Signature ABORh. O POS [facility] Specimen Anatomical Collection Method Collection Time Receive d Time (Source) Location / / Volume Laterality Blood 08/15/2022 8:48 AM 2 CDT 10:20 AM CDT Marysol NICK BLOOD BANK TEST ORDERABLES Performing Organization Address City/State/ZIP Code Phon e Number [facility] CANCER Unless otherwise noted, [place] [address] [place] all lab tests performed by: Division of Pathology and Laboratory Medicine [address] (ABNORMAL) Differential (08/15/2022 8:48 AM CDT)Only the most recent of4 results within the time period is included. athologist Signature Neutrophil % 61.4 42.0 - [facility] 66.0 % DIAGNOSTIC CENTER Lymphocyte % 24.0 24.0 - [facility] 44.0 % DIAGNOSTIC CENTER Monocyte % 10.6 (H) 2.0 - 7.0 [facility] % DIAGNOSTIC CENTER Eosinophil % 3.0 1.0 - 4.0 [facility] % DIAGNOSTIC CENTER Basophil % 0.7 0.0 - 1.0 [facility] % DIAGNOSTIC CENTER IGRE % 0.3 0.0 - 0.4 [facility] % DIAGNOSTIC CENTER Comment: IGRE % count includes Metamyelo cytes, Myelocytes, and Promyelocytes. Neutrophil Abs 6.23 1.70 - 7.30 K/uL [facility] Lymphocyte Abs 2.44 1.00 - 4.80 K/uL [facility] Monocyte Abs 1.08 (H) 0.08 - 0.70 K/uL [facility] Eosinophil Abs 0.30 0.04 - 0.40 K/uL [facility] Basophil Abs 0.07 0.00 - 0.10 K/uL [facility] IG Abs 0.03 0.00 - 0.04 K/uL [facility] DULCE [facility] Specimen Anatomical Collection Method Collection Time Receive d Time (Source) Location / / Volume Laterality Blood 08/15/2022 8:48 AM 2 9:12 CDT AM CDT Narrative [facility] - 08/15 9:21 AM CDT Schedule in Fast Track Marysol NICK LAB BLOOD ORDERABLES Performing Organization Address City/State/ZIP Code Phon e Number [facility] DIAGNOSTIC Unless otherwise noted, [place] [phone] [place] all lab tests performed by: Division of Pathology and Laboratory Medicine [facility] Antibody Screen (08/15/2022 8:48 AM CDT)Only the most recent of4 resultswithin the time period is included. P athologist Signature ABSC. Negative ABSC [facility] Specimen Anatomical Collection Method Collection Time Receive d Time (Source) Location / / Volume Laterality Blood 08/15/2022 8:48 AM 2 CDT 10:20 AM CDT Marysol NICK BLOOD BANK TEST ORDERABLES Performing Organization Address City/[facility]/ZIP Code Phon e Number [facility] CANCER Unless otherwise noted, [place] [id number] [place] all lab tests performed by: Division of Pathology and Laboratory Medicine [address] [place] [address] Uric Acid (08/15/2022 8:48 AM CDT)Only the most recent of4 resultswithin the time period is included. [facility] U[facility] Acid 5.3 2.4 - 5.7 [facility] mg/dL [facility] Specimen Anatomical Collection Method Collection Time Receive d Time (Source) Location / / Volume Laterality Blood 08/15/2022 8:48 AM 2 9:19 CDT AM CDT Narrative [facility] - 08/15 9:58 AM CDT Schedule in Fast Track Marysol NICK LAB BLOOD ORDERABLES Performing Organization Address City/[facility]/ZIP Code Phon e Number [facility] DIAGNOSTIC Unless otherwise noted, [place], [place] [address] [place] all lab tests performed by: Division of Pathology and Laboratory Medicine [facility] BUN (08/15/2022 8:48 AM CDT)Only the most recent of4 resultswithin the time period is included. athologist [facility] BUN 14 6 - 23 [facility] mg/dL [facility] Specimen Anatomical Collection Method Collection Time Receive d Time (Source) Location / / Volume Laterality Blood 08/15/2022 8:48 AM 2 9:19 CDT AM CDT Marysol Allen PA LAB BLOOD ORDERABLES Performing Organization Address City/State/[facility] Phon e Number [facility] DIAGNOSTIC Unless otherwise noted, [address] all lab tests performed by: Division of Pathology and Laboratory Medicine [address] Triglycerides (08/15/2022 8:48 AM CDT)Only the most recent of2 resultswithin the time period is included. athologist Signature Trig 88 <=149 mg/dL [facility] Comment: ATP III Classification of Serum Triglyce rides Primary Target of Therapy (in mg/dL): <150 Normal 150-199 Borderline high 200-499 High >=500 Very high Non-fasting triglycerides >200 mg/dL may be followed up with a fasting Lipid Panel. Calculated LDL-C may be falsely decreased when non-fasting triglycerides >200 mg/dL. Specimen Anatomical Collection Method Collection Time Receive d Time (Source) Location / / Volume Laterality Blood 08/15/2022 8:48 AM 2 9:19 CDT AM CDT Marysol NICK LAB BLOOD ORDERABLES Performing Organization Address City/[facility] Phon e Number [facility] DIAGNOSTIC Unless otherwise noted, [address] all lab tests performed by: Division of Pathology and Laboratory Medicine [address] Alanine Aminotransferase (08/15/2022 8:48 AM CDT)Only the most recent of4 resultswithin the time period is included. athologist Signature ALT 25 <=33 U/L [facility] Specimen Anatomical Collection Method Collection Time Receive d Time (Source) Location / / Volume Laterality Blood 08/15/2022 8:48 AM 2 9:19 CDT AM CDT Narrative [facility] - 08/15 9:58 AM CDT Schedule in Fast Track Marysol NICK LAB BLOOD ORDERABLES Performing Organization Address City/[facility]/ZIP [facility] Phon e Number [facility] DIAGNOSTIC Unless otherwise noted, [address] all lab tests performed by: Division of Pathology and Laboratory Medicine [address] Aspartate Aminotransferase (08/15/2022 8:48 AM CDT) athologist Signature AST 22 <=32 U/L [facility] Specimen Anatomical Collection Method Collection Time Receive d Time (Source) Location / / Volume Laterality Blood 08/15/2022 8:48 AM 2 9:19 CDT AM CDT Narrative [facility] - 08/15 9:58 AM CDT Schedule in Fast Track Marysol Allen PA LAB BLOOD ORDERABLES Performing Organization Address City/[facility]/ZIP Code Phon e Number [facility] DIAGNOSTIC Unless otherwise noted, [address] all lab tests performed by: Division of Pathology and Laboratory Medicine [address] Total Protein (08/15/2022 8:48 AM CDT)Only the most recent of4 resultswithin the time period is included. P athologist Signature Total Protein 7.4 6.4 - 8.3 [facility] g/dL [facility] Specimen Anatomical Collection Method Collection Time Receive d Time (Source) Location / / Volume Laterality Blood 08/15/2022 8:48 AM 2 9:19 CDT AM CDT Narrative [facility] - 08/15 9:58 AM CDT Schedule in Fast Track Marysol NICK LAB BLOOD ORDERABLES Performing Organization Address City/[facility] Code Phon e Number [facility] DIAGNOSTIC Unless otherwise noted, [address] all lab tests performed by: Division of Pathology and Laboratory Medicine [address] Phosphorus Level (08/15/2022 8:48 AM CDT)Only the most recent of4 resultswithin the time period is included. P athologist Signature Phosphorus 3.3 2.5 - 4.5 [facility] mg/dL [facility] Specimen Anatomical Collection Method Collection Time Receive d Time (Source) Location / / Volume Laterality Blood 08/15/2022 8:48 AM 2 9:19 CDT AM CDT Narrative [facility] - 08/15 9:58 AM CDT Schedule in Fast Track Marysol Allen PA LAB BLOOD ORDERABLES Performing Organization Address City/[facility]/ZIP Code Phon e Number [facility] DIAGNOSTIC Unless otherwise noted, [address] all lab tests performed by: Division of Pathology and Laboratory Medicine [address] (ABNORMAL) Alkaline Phosphatase (08/15/2022 8:48 AM CDT)Only the most recent of4 resultswithin the time period is included. athologist Signature Alk Phos 128 (H) 35 - 104 [facility] U/L DIAGNOSTIC CENTER Specimen Anatomical Collection Method Collection Time Receive d Time (Source) Location / / Volume Laterality Blood 08/15/2022 8:48 AM 2 9:19 CDT AM CDT Narrative [facility] - 08/15 9:58 AM CDT Schedule in Fast Track Marysol NICK LAB BLOOD ORDERABLES Performing Organization Address City/[facility] Phon e Number [facility] DIAGNOSTIC Unless otherwise noted, [address] all lab tests performed by: Division of Pathology and Laboratory Medicine [address] Magnesium Level (08/15/2022 8:48 AM CDT)Only the most recent of4 resultswithin the time period is included. athologist Signature Magnesium 1.8 1.6 - 2.6 [facility] mg/dL DIAGNOSTIC CENTER Specimen Anatomical Collection Method Collection Time Receive d Time (Source) Location / / Volume Laterality Blood 08/15/2022 8:48 AM 2 9:19 CDT AM CDT Narrative [facility] - 08/15 9:58 AM CDT Schedule in Fast Track Marysol NICK LAB BLOOD ORDERABLES Performing Organization Address City/[facility] Phon e Number [facility] DIAGNOSTIC Unless otherwise noted, [address] all lab tests performed by: Division of Pathology and Laboratory Medicine [address] [place] Lipase (08/15/2022 8:48 AM CDT)Only the most recent of2 resultswithin the time period is included. athologist Signature Lipase Lvl 37 13 - 60 U/L [facility] Specimen Anatomical Collection Method Collection Time Receive d Time (Source) Location / / Volume Laterality Blood 08/15/2022 8:48 AM 2 9:50 CDT AM CDT Marysol NICK LAB BLOOD ORDERABLES Performing Organization Address City/State/ZIP Code Phon e Number [facility] DIAGNOSTIC Unless otherwise noted, [address] all lab tests performed by: Division of Pathology and Laboratory Medicine [address] [place] (ABNORMAL) LDH (08/15/2022 8:48 AM CDT)Only the most recent of4 resultswithin the time period is included. athologist [facility] LDH 218 (H) 135 - 214 [facility] U/L [facility] Comment: Results greater than 1651 U/L m ay not be reliable due to matrix effect with extended dilution as it exceeds the manu facturer's recommended limit. Caution should be exercised when interpreting such valu es and done in conjunction with clinical context. Specimen Anatomical Collection Method Collection Time Receive d Time (Source) Location / / Volume Laterality Blood 08/15/2022 8:48 AM 2 9:19 CDT AM CDT Narrative [facility] - 08/15 9:58 AM CDT Schedule in Fast Track Marysol NICK LAB BLOOD ORDERABLES Performing Organization Address City/State/ZIP Code Phon e Number [facility] DIAGNOSTIC Unless otherwise noted, [address] all lab tests performed by: Division of Pathology and Laboratory Medicine [address] [place] Calcium Level (08/15/2022 8:48 AM CDT)Only the most recent of4 resultswithin the time period is included. [facility] Calcium Lvl 10.2 8.4 - 10.2 [facility] mg/dL DIAGNOSTIC CENTER Specimen Anatomical Collection Method Collection Time Receive d Time (Source) Location / / Volume Laterality Blood 08/15/2022 8:48 AM 2 9:19 CDT AM CDT Narrative [facility] - 08/15 9:58 AM CDT Schedule in Fast Track Marysol NICK LAB BLOOD ORDERABLES Performing Organization Address City/[facility]/ZIP Code Phon e Number [facility] DIAGNOSTIC Unless otherwise noted, [address] all lab tests performed by: Division of Pathology and Laboratory Medicine [address] [place] Amylase Level (08/15/2022 8:48 AM CDT)Only the most recent of2 resultswithin the time period is included. athologist Signature Amylase Lvl 33 28 - 100 [facility] U/L DIAGNOSTIC CENTER Specimen Anatomical Collection Method Collection Time Receive d Time (Source) Location / / Volume Laterality Blood 08/15/2022 8:48 AM 2 9:50 CDT AM CDT Marysol NICK LAB BLOOD ORDERABLES Performing Organization Address City/[facility]/ZIP [facility] Phon e Number [facility] DIAGNOSTIC Unless otherwise noted, [address] all lab tests performed by: Division of Pathology and Laboratory Medicine [facility] [place] Albumin Level (08/15/2022 8:48 AM CDT)Only the most recent of4 resultswithin the time period is included. athologist [facility] Albumin Lvl 4.6 3.5 - 5.2 [facility] gm/dL [facility] Specimen Anatomical Collection Method Collection Time Receive d Time (Source) Location / / Volume Laterality Blood 08/15/2022 8:48 AM 2 9:19 CDT AM CDT Narrative [facility] - 08/15 9:58 AM CDT Schedule in Fast Track Marysol NICK LAB BLOOD ORDERABLES Performing Organization Address City/[facility] Phon e Number [facility] DIAGNOSTIC Unless otherwise noted, [place] [id number] all lab tests performed by: Division of Pathology and Laboratory Medicine [facility] [place] Electrolyte Panel (08/15/2022 8:48 AM CDT)Only the most recent of4 resultswithin the time period is included. athologist [facility] Sodium Lvl 138 136 - 145 [facility] mEq/L [facility] Potassium Lvl 4.1 3.5 - 5.1 [facility] mEq/L DIAGNOSTIC [place] Chloride 102 98 - 107 [facility] mEq/L [facility] CO2 27 22 - 29 [facility] mEq/L [facility] Anion Gap 9 4 - 14 [facility] mEq/L [facility] Specimen Anatomical Collection Method Collection Time Receive d Time (Source) Location / / Volume Laterality Blood 08/15/2022 8:48 AM 2 9:19 CDT AM CDT Narrative [facility] - 08/15 9:58 AM CDT Schedule in Fast Track Marysol NICK LAB BLOOD ORDERABLES Performing Organization Address City/State/ZIP Code Phon e Number [facility] DIAGNOSTIC Unless otherwise noted, [place] [address] CENTER all lab tests performed by: Division of Pathology and Laboratory Medicine Claudia Sanders MD t(9;22) BCR/ABL1 Quantitative PCR Collection, Blood (05/16/2022 7:33 AM CDT) Only the most recent of2 resultswithin the time period is included. athologist Signature Molecular Yes [facility] Diagnostics [facility] (Received) Specimen Anatomical Collection Method Collection Time Receive d Time (Source) Location / / Volume Laterality Blood 05/16/2022 7:33 AM 2 CDT 10:33 AM CDT Abiola PELAEZ MD BLOOD COLLECTIONS Performing Organization Address City/[facility]/ZIP Code Phon e Number [facility] CANCER Unless otherwise noted, [place] [address] CENTER all lab tests performed by: Division of Pathology and Laboratory Medicine Claudia Sanders MD t(9;) BCR/ABL1 Quantitative PCR Interpretation and Report (05/16/2022 7:33 AM CDT)Only the most recent of3 resultswithin the time period is included. Specimen (Source) Anatomical Collection Method Collection Time Re ceived Time Location / / Volume Laterality 05/16/2022 7:33 AM CDT Narrative This result has an attachment that is no t available. Abiola Rosales PHD INTERN [facility] ([facility] ) IgA (05/16/2022 7:33 AM CDT)Only the most recent of2 resultswithin the time period is included. athologist Signature IgA 110 85 - 499 [facility] mg/dL [facility] Specimen Anatomical Collection Method Collection Time Receive d Time (Source) Location / / Volume Laterality Blood 05/16/2022 7:33 AM 2 9:08 CDT AM CDT Abiola Rosales [facility] LAB BLOOD ORDERABLES Performing Organization Address City/[facility]/ZIP [facility] Phon e Number [facility] CANCER Unless otherwise noted, [address] all lab tests performed by: Division of Pathology and Laboratory Medicine [facility] Deejay Sanders (ABNORMAL) IgM (05/16/2022 7:33 AM CDT)Only the most recent of2 resultswithin the time period is included. athologist Signature IgM 22 (L) 35 - 242 [facility] mg/dL [facility] Specimen Anatomical Collection Method Collection Time Receive d Time (Source) Location / / Volume Laterality Blood 05/16/2022 7:33 AM 2 9:08 CDT AM CDT Abiola [facility] LAB BLOOD ORDERABLES Performing Organization Address City/[facility]/ZIP Code Phon e Number [facility] Unless otherwise noted, [address] all lab tests performed by: Division of Pathology and Laboratory Medicine [address] [place] [address] [place] IgG (05/16/2022 7:33 AM CDT)Only the most recent of2 resultswithin the time period is included. athologist Signature IgG 661 610 - 1,616 [facility] mg/dL [facility] Specimen Anatomical Collection Method Collection Time Receive d Time (Source) Location / / Volume Laterality Blood 05/16/2022 7:33 AM 2 9:08 CDT AM CDT Abiola [facility] LAB BLOOD ORDERABLES Performing Organization Address City/[facility]/ZIP Code Phon e Number [facility] CANCER Unless otherwise noted, [address] all lab tests performed by: Division of Pathology and Laboratory Medicine [address] [place] [address] [place] Hematopathology Bone Marrow Interpretation (02/14/2022 2:38 PM CDT) Component Value Ref Test Analysis Performed Pathologis t Range Method Time At Signature Diagnosis Bone marrow, right posterior iliac crest, clot and asp irate: 02/17/2022 [facility] Electronically 10:25 AM signed by [employer] (50%) marrow with o rderly trilineage hematopoiesis, no increase in blasts (see Comment) CDT MD Vinicius on 02/17/2022 a t 10:25 AM Comment Clinical history: Ph+ B-ALL diagnosed in 08/2019, s/p therapy, and in molecular remission. 02/17/2022 [facility] 10:25 AM Correlate with ongoing flow cytometric, cytogenetic, and molecular studies for complete evaluation of residual disease. CDT Microscopic Bone marrow clot: 02/17/2022 [facility] LA BS Description Quality: Adequate 10:25 AM Cellularity: 50% CDT Megakaryocytes: Adequate in number, with unremarkable morpho logy Infiltrate: Not seen Bone marrow aspirate: Quality/cellularity: Adequate Granulocytes: Adequate in po rtion, progressive maturation, unremarkable morphology Erythrocytes: Adequate in po rtion, progressive maturation, unremarkable morphology Megakaryocytes: Adequate in number, unremarkable morphology Lymphocytes: Not increased Blasts: Not increased Gross B: 02/17/2022 [facility] Description Iliac crest, right posterior, clot 10: 25 AM Dimensions: 0.3 x 3.0 x 2.5 cm CDT Specimen is entirely submitted in 1. BB Disclaimer "Some tests 02/17/2022 [facility] reported here may 10:25 AM have been CDT developed and performance characteristics determined by [facility] Pathology and Laboratory Medicine. These tests have not been specifically cleared or approved by the U.S. Food and Drug Administration. If applicable, controls were reviewed and showed appropriate reactivity." Specimen Anatomical Collection Method Collection Time Receive d Time (Source) Location / / Volume Laterality Bone Marrow Collection / 02/14/2022 2:38 PM 2 4:18 (Iliac Crest, Unknown CDT PM CDT Right Posterior, Aspirate) Bone Marrow Collection / 02/14/2022 2:38 PM 2 3:53 (Iliac Crest, Unknown CDT PM CDT Right Posterior, Clot) Shiraz Pritchard MD LAB PATHOLOGY ORDERABLES Performing Organization Address City/State/ZIP Code Phon e Number [facility] Cancer [facility] [place] [address] [address] Deej[address] Sanders (ABNORMAL) Hematopathology Bone Marrow Differential (02/14/2022 2:38 PM CDT) Component Value Ref Test Analysis Performed At Patholo gist Range Method Time Signature Method Smear 02/17/2022 [facility] 10:24 AM CDT Adequacy Satisfactory 02/17/2022 [facility] for evaluation 10:24 AM CDT Total cells 500 02/17/2022 [facility] counted 10:24 AM CDT BM Blast % 1 0 - 5 % 02/17/2022 [facility] 10:24 AM CDT BM Progranulocyte 1 (L) 2 - 8 % 02/17/2022 [facility] % 10:24 AM CDT BM Myelocyte % 11 5 - 20 % 02/17/2022 [facility] 10:24 AM CDT BM Metamyelocyte 16 13 - 32 02/17/2022 [facility] % % 10:24 AM CDT BM Granulocyte % 37 (H) 7 - 30 % 02/17/2022 [facility] 10:24 AM CDT BM Eosinophil % 3 0 - 4 % 02/17/2022 [facility] 10:24 AM CDT BM Basophil % 0 0 - 1 % 02/17/2022 [facility] 10:24 AM CDT BM Lymphocyte % 9 3 - 17 % 02/17/2022 [facility] 10:24 AM CDT BM Plasma Cell % 1 0 - 2 % 02/17/2022 [facility] 10:24 AM CDT BM Monocyte % 3 0 - 5 % 02/17/2022 [facility] 10:24 AM CDT BM Reticulum Cell 02/17/2022 [facility] % 10:24 AM CDT BM Pronormoblast 2 1 - 8 % 02/17/2022 [facility] % 10:24 AM CDT BM Normoblast % 18 7 - 32 % 02/17/2022 [facility] 10:24 AM CDT BM M:E Ratio 3.6 3.0 - 02/17/2022 [facility] 4.0 10:24 AM CDT Specimen Anatomical Collection Method Collection Time Receive d Time (Source) Location / / Volume Laterality Bone Marrow Collection / 02/14/2022 2:38 PM 2 4:18 (Iliac Crest, Unknown CDT PM CDT Right Posterior, Aspirate) Narrative [facility] - 02/17/2022 10:24 AM CDT DISCLAIMER Preliminary BM Diff may have been comple nacho by a medical staff credentialing coordinator or a hematopathology fellow and is subject to change. Any pathologist updates will be included on interpretation and appear in the f inal result. Please use caution in evalu ating your patient based on preliminary results. Shiraz Pritchard MD LAB PATHOLOGY ORDERABLES Performing Organization Address City/[facility]/ZIP Code Phon e Number [facility] [place] [address] Claudia Sanders Adaptive clonoSEQ-Send out, Bone Marrow (02/14/2022 2:36 PM CDT) Patholo gist Method Time Signature Adaptive Shipped Out [place] clonoSEQ [facility] Comment: Specimen for clonoSEQ testing was obtain ed, processed and sent out to the [facility]. Refer to separate [employer] es Portal for results. Testing Indication MRD-Tracking FL MD [facility] Specimen Anatomical Collection Method Collection Time Receive d Time (Source) Location / / Volume Laterality Bone Marrow 02/14/2022 2:36 PM 2 7:22 CDT PM CDT Narrative [facility] - 2 2:38 PM CDT I acknowledge I have placed a correspond ing order in Adaptive Portal.->Yes Abiola Rosales PHD INTERN LAB BLOOD ORDERABLES Performing Organization Address City/[facility]/ZIP Code Phon e Number [facility] CANCER Unless otherwise noted, [address] all lab tests performed by: Division of Pathology and Laboratory Medicine Claudia Sanders MD TP53 Collection, Nonblood (02/14/2022 2:36 PM CDT) athologist Signature Molecular Yes [facility] (Received) Specimen Anatomical Collection Method Collection Time Receive d Time (Source) Location / / Volume Laterality Bone Marrow 02/14/2022 2:36 PM 2 5:06 CDT PM CDT Marysol PELAEZ MD NONBLOOD COLLECTIO NS Performing Organization Address City/[facility]/ZIP Code Phon e Number [facility] Unless otherwise noted, [address] all lab tests performed by: Division of Pathology and Laboratory Medicine Claudia Sanders MD NOTCH1 Exons 26, 27, 34 Collection, Nonblood (02/14/2022 2:36 PM CDT) athologist Signature Molecular Yes [facility] (Received) Specimen Anatomical Collection Method Collection Time Receive d Time (Source) Location / / Volume Laterality Bone Marrow 02/14/2022 2:36 PM 2 5:06 CDT PM CDT Marysol PELAEZ MD NONBLOOD COLLECTIO NS Performing Organization Address City/State/ZIP Code Phon e Number [facility] CANCER Unless otherwise noted, [address] all lab tests performed by: Division of Pathology and Laboratory Medicine Claudia SOMMERS MRD B ALL Collection, Nonblood (02/14/2022 2:36 PM CDT) athologist [facility] Flow Cytometry Yes [facility] ([facility]) [facility] Specimen Anatomical Collection Method Collection Time Receive d Time (Source) Location / / Volume Laterality Bone Marrow 02/14/2022 2:36 PM 2 4:42 CDT PM CDT Marysol PELAEZ FC NONBLOOD COLLECTIO NS Performing Organization Address City/[facility]/ZIP Code Phon e Number [facility] CANCER Unless otherwise noted, [address] all lab tests performed by: Division of Pathology and Laboratory Medicine Claudia Sanders MD t(9;22) BCR/ABL1 Quantitative PCR Collection, Nonblood (02/14/2022 2:36 PM CDT) athologist Signature Molecular Yes [facility] (Received) Specimen Anatomical Collection Method Collection Time Receive d Time (Source) Location / / Volume Laterality Bone Marrow 02/14/2022 2:36 PM 2 5:06 CDT PM CDT Marysol PELAEZ MD NONBLOOD COLLECTIO NS Performing Organization Address City/State/ZIP Code Phon e Number [facility] CANCER Unless otherwise noted, [address] all lab tests performed by: Division of Pathology and Laboratory Medicine Claudia ARRIAGA BCR/ABL1 t(9;22) FISH Collection, Nonblood (02/14/2022 2:36 PM CDT) athologist Signature Cytogenetics Yes [facility] (Received) [facility] Specimen Anatomical Collection Method Collection Time Receive d Time (Source) Location / / Volume Laterality Bone Marrow 02/14/2022 2:36 PM 2 4:22 CDT PM CDT Marysol NICK [facility] CG NONBLOOD COLLECTIO NS Performing Organization Address City/State/ZIP Code Phon e Number [facility] CANCER Unless otherwise noted, [address] all lab tests performed by: Division of Pathology and Laboratory Medicine [address] [place] [address] Chromosome Analysis Collection, Nonblood (02/14/2022 2:36 PM CDT) P athologist Signature Cytogenetics Yes [place] (Received) [facility] Specimen Anatomical Collection Method Collection Time Receive d Time (Source) Location / / Volume Laterality Bone Marrow 02/14/2022 2:36 PM 2 4:22 CDT PM CDT Marysol NICK [facility] CG NONBLOOD COLLECTIO NS Performing Organization Address City/[facility]/ZIP Code Phon e Number [facility] CANCER Unless otherwise noted, [address] all lab tests performed by: Division of Pathology and Laboratory Medicine [address] [place] [address] Chromosome Analysis Interpretation and Report (02/14/2022 2:36 PM CDT) Specimen (Source) Anatomical Collection Method Collection Time Re ceived Time Location / / Volume Laterality 02/14/2022 2:36 PM CDT Narrative This result has an attachment that is no t available. Marysol NICK [facility] CYTOGENETICS (HP CG) CG BCR/ABL1 t(9;22) FISH Interpretation and Report (02/14/2022 2:36 PM CDT) Specimen (Source) Anatomical Collection Method Collection Time Re ceived Time Location / / Volume Laterality 02/14/2022 2:36 PM CDT Narrative This result has an attachment that is no t available. Marysol NICK [facility] CYTOGENETICS (HP CG) Cytogenetics Specimen Collection -Bone Marrow (02/14/2022 2:36 PM CDT) Patholo gist Method Time Signature Beaker Ap Link [id number] Cytogenetics Yes [place] (Received) [facility] Specimen Anatomical Collection Method Collection Time Receive d Time (Source) Location / / Volume Laterality Bone Marrow 02/14/2022 2:36 PM 2 4:22 CDT PM CDT Marysol NICK [facility] CG NONBLOOD COLLECTIO NS Performing Organization Address City/State/ZIP Code Phon e Number [facility] CANCER Unless otherwise noted, [address] all lab tests performed by: Division of Pathology and Laboratory Medicine [facility] FC MRD B ALL Interpretation and Report (02/14/2022 2:36 PM CDT) Specimen Anatomical Collection Method Collection Time Receive d Time (Source) Location / / Volume Laterality 02/14/2022 2:36 PM 2 4:42 CDT PM CDT Narrative This result has an attachment that is no t available. Marysol NICK [facility] FLOW CYTOMETRY (HP FC ) Molecular Diagnostics Specimen Collection -Bone Marrow (02/14/2022 2:36 PM CDT) Patholo gist Method Time Signature Molecular Yes [facility] (Received) [facility] Nae Amanda Link [id number] [facility] Specimen Anatomical Collection Method Collection Time Receive d Time (Source) Location / / Volume Laterality Bone Marrow 02/14/2022 2:36 PM 2 5:06 CDT PM CDT Marysol NICK MDA HP MD NONBLOOD COLLECTIO NS Performing Organization Address City/State/ZIP Code Phon e Number [facility] CANCER Unless otherwise noted, [address] all lab tests performed by: Division of Pathology and Laboratory Medicine [address] [place] [address] Flow Cytometry Specimen Collection -Bone Marrow (02/14/2022 2:36 PM CDT) P athologist Signature Flow Cytometry Yes [facility] (Received) [facility] Comment: Test performed by: [facility] Flow Cytometry Laboratory [address] [place] [address] Nae Ap Link [id number] [facility] Specimen Anatomical Collection Method Collection Time Receive d Time (Source) Location / / Volume Laterality Bone Marrow 02/14/2022 2:36 PM 2 4:42 CDT PM CDT Marysol N Alejandro PA [facility] FC NONBLOOD COLLECTIO NS Performing Organization Address City/State/ZIP Code Phon e Number [facility] CANCER Unless otherwise noted, [place] [address] CENTER all lab tests performed by: Division of Pathology and Laboratory Medicine Dori5 Deejay [facility] DIAGNOSTIC BONE MARROW ASPIRATIONS (02/14/2022 2:22 PM CDT) Specimen (Source) Anatomical Location Collection Method / Collectio n Time Received Time / Laterality Volume Bone Marrow Narrative [facility] - 2 2:22 PM CDT PARK Bonilla 02/14/2022 3:08 PM Procedure: Bone marrow aspiration Date/Time: 02/14/2022 2:22 PM Provider Information: Performed by: PARK Bonilla Authorized by: PARK Deras Lamination Assembler present: yes Lamination Assembler: Megan Celestin RN police radio dispatcher used?: rack maker n ot needed (Patient declined) 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 Indication: Indication: evaluation of disease status Anesthesia: Anesthesia: local infiltration Patient anesthetized by: advanced practi ce provider Local anesthetic: lidocaine 1% without e pinephrine Anesthetic total (ml): 15 Sedation: Patient sedated?: patient sedated Sedation type: anxiolysis Sedation: midazolam and see MAR for deta ils Vital signs: vital signs monitored durin g sedation Aspirate Site(s): Laterality: right Site location: posterior iliac crest Instrument(s) used: [place] needle Instruments placed by: advanced practice provider Dressing: Dressing: gel foam and compression little ge Post-Procedure Patient Assessment: Patient tolerance: well Estimated blood loss: minimal Complications/Observations: no complicat ions Discharge/Disposition: Discharge instructions: verbal, printed discharge instructions given to patient and patient verbalized understan justin Patient discharged to: discharge to medicare specialist Disposition mode: wheelchair Sample Disposition: Testing performed: flow cytometry, molec ular, cytogenetics and pathology (Fish/ clonoSEQ- collected) Research samples(s): yes Protocol #: Sa[place]- collected Aspirate volume obtained (mL) - right: 3 3 Visual assessment for specimen adequacy - right: particles Comments: Patient is alert and oriented. Declined keyboard teacher.Versed 2.5 mg PO given by Megan TREVIÑO. Post procedure i nstructions reviewed with daughter and patient. Discharged awake, stable. The patient was positively identified by Name, MRN, and . Informed consent obtained. Pt was offered a [employer] rack maker but she and her daughter declined. Pt denied taking an y blood thinners besides aspirin 81 mg which she took yesterday. Laboratory values were reviewed and platelet count was 251 and adequate for the proce dure. The patient tolerated the procedure well. Following the procedure pressure was applied to site until homeostasis achieved. A gel foam was drew lied. Patient was instructed to keep the bandage on and dry for 24 hours after the procedure and they stated a clear understanding. Written in structions were provided to the patient. No complications were observe d immediately after the procedure. My initials and the date/time of the pro cedure were written on the bandage. She was discharged in a wheel chair in stable condition to her daughter. Pertinent lab data: Lab Results Component Value Date WBC 8.2 02/14/2022 HGB 14.0 02/14/2022 HCT 42.6 02/14/2022 MCV 77 (L) 02/14/2022 PLT 251 02/14/2022 Marysol NICK PROCEDURE/MINOR SURGICAL ORD ERABLES Performing Organization Address City/State/ZIP Code Phon e Number [facility] Unless otherwise noted, [place] [address] [place] all lab tests performed by: Division of Pathology and Laboratory Medicine [address] [place] [address] Peripheral Smear for Bone Marrow (02/14/2022 7:55 AM CDT) P athologist Signature Peripheral PSMEAR [facility] Specimen Anatomical Collection Method Collection Time Receive d Time (Source) Location / / Volume Laterality Blood 02/14/2022 7:55 AM 7:59 CDT AM CDT Marysol NICK LAB BLOOD ORDERABLES Performing Organization Address City/State/ZIP Code Phon e Number [facility] Unless otherwise noted, [place], [place] [address] [place] all lab tests performed by: Division of Pathology and Laboratory Medicine [facility] 10/15/2021 Insurance Payer Benefit Plan / Subscriber ID Effective Dates Phone Addre ss Type Group HUMANA HUMANA CHOICE [id number] 2020-Presen [address] [address] Medicare MEDIC[place] [address] Monica Fleming Personal/Family Self 1940 [address] (Home) [place] [address] Advance Directives Type Date Recorded Patient Document Review Specialist Explanati on Advance Directives: 10/28/2019 Directive to Physicians Living Will and Family or Surrogates-Estellain abdulkadir Will Advance Directives: 10/28/2019 Medical Michelle r of Heading Machine Operator Medical Power of Heading Machine Operator Code Status Date Activated Date Inactivated Comments Full Code 11/17/2019 1:34 AM 11/19/2019 10:06 PM Code Status Date Activated Date Inactivated Comments Full Code 11/04/2019 8:41 PM 11/11/2019 9:04 PM Care Teams Respiratory Clinician Relationship Specialty Start Date End Date Osmel Burger, PCP - External Referring Internal Medicine [facility] [address] [place] [address] [address] Shiraz Pritchard MD PCP - General Leukemia 10/18/[address] [place] [id number]
--- OUTSIDE RECORDS SUMMARY | 2022-10-15 10:53 | XMS REPORT | Continuity of Care Document ---
:1940 Author Organization [facility] t Address [facility] [place] [address] Care Team Providers Name Role Phone [phone] Primary Care Physician Unavailable Malinda Nobles Attending Clinician Unavailable Mar Humphries Attending Clinician Unavailable Marysol Peng Attending Clinician Mario Kaplan RN Attending Clinician Unavailable Shiraz Pritchard MD Attending Clinician SHIRAZ PRITCHARD Attending Clinician Unavailable Carlos PharmD, Mariaa Attending Clinician Unavailable Abiola Garcia Attending Clinician ABIOLA HOLLEY Attending Clinician Unavailable Anthony PharmD, Selena Russell Attending Clinician Unavailable Pierre Palomo Corbin Attending Clinician Greta Delarosa Attending Clinician Rosa Elena Costa RN, I Attending Clinician Unavailable Queenie Johnson RN Attending Clinician Unavailable Lyssa Hopper RN Attending Clinician Unavailable ORAL PALENCIA Attending Clinician Unavailable MARTHA SAMANIEGO Attending Clinician Unavailable BENJAMIN BARRIENTOS Attending Clinician Unavailable DALILA CORDOVA Attending Clinician Unavailable JENNA LINDSAY Attending Clinician Unavailable Payers Payer Name Policy Type Policy Number Effective Date Expiration Date S cole HUMANA CHOICE [id number] 2019 MEDICARE PPO 00:00:00 HU[employer] MEDICARE C1 [id number] 2020 Common Sp vonda PPO 00:00:00 - [facility] HUMANA MEDICARE C1 [id number] 2020 Common Sp vonda PPO 00:00:00 - [facility] HUMANA MEDICARE C1 [id number] 2020 Common Sp vonda PPO 00:00:00 - [facility] Problems Condition Condition Condition Status Onset Resolution Last Treating Co mments Source Name Details Category Date Date Treatment Clinician Date 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 U nivers ciency ciency 6-12 ity of 00:00: [place] 00 MD Manisha avilez [facility] Hypermagne Hypermagne Disease Active 2020-0 U nivers semia semia 4-24 ity of 00:00: [place] 00 MD Manisha avilez [facility] Disease Active 2019-0 U nivers ia ia 4-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 acute 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 2-06 ity of acute acute 00:00: [place] pancreatit pancreatit 00 is without is without An derso necrosis necrosis n or or Cancer infection infection Cent er Pancreatit Pancreatit Disease Active 2020-0 U nivers is is 2-05 ity of 00:00: [place] 00 MD Manisha avilez [facility] Acute Acute Disease Recurre Univers lymphoblas lymphoblas nce 1-19 it y of tic tic 00:00: [place] leukemia, leukemia, 00 [facility] Patient Patient Disease Recurre Univer s immunocomp immunocomp nce 1-19 it y of romised romised 00:00: [place] 00 MD Manisha avilez [facility] Anemia due Anemia due Disease Recurre Univers to to nce 1-19 ity of antineopla antineopla [place] stic stic 00 chemothera chemothera An derso py py n Cancer Center 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 [place] openia openia 00 MD Manisha avilez [facility] Essential Essential Disease Recurre Un donnie (primary) (primary) nce -19 ity of hypertensi hypertensi [place] Manisha avilez [facility] Osteopenia Osteopenia Problem C ommon Spirit - [facility] Peripheral 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 Family History Family Member Diagnosis Comments Start Date Stop Date Source Natural father COPD [facility] Arnaud [place] Natural father Rheum arthritis [facility] [place] [facility] [place] Natural mother Heart disease [facility] [place] [facility] [place] Social History Social Habit Start Date Stop Date Quantity Comments Source History of Common Spirit - Tobacco Use [facility] History [facility] o f Alcohol Std José Miguel godinez Drinks [facility] Center History [facility] o f Alcohol Binge José Miguel dumont [facility] Alcohol intake 2020-07-27 2020-07-27 Lifetime University of 00:00:00 00:00:00 non-drinker José Miguel godinez (finding) Cancer Center History SDOH 2019-11-17 2019-11-17 1 University o f Alcohol Frequency 00:00:00 00:00:00 [place] Holger Patel [facility] Cigarette 2019-10-28 2019-10-28 University of pack-years 00:00:00 00:00:00 José Miguel larry [facility] Tobacco use and 2019-10-28 2019-10-28 Smokeless tobacco Un iversity of exposure 00:00:00 00:00:00 non-user José Miguel larry [facility] Tobacco Comment 2019-10-28 2019-10-28 exposed to second Un iversity of 00:00:00 00:00:00 hand smoke José Miguel larry [facility] Sex [birth year] Universit y of 00:00:00 00:00:00 José Miguel Pak [facility] Smoking Status Start Date Stop Date Source Former Smoker 2022-07-25 00:00:00 2022-07-25 00:00:00 Common S pirit [facility] Never Smoker [facility] Medications Ordered Filled Start Stop Current Ordering Indication Dosage Frequency Signature Comments Components Source Medication Medication Date Date Medication? Clinician (SIG) Name Name metFORMIN 2021-10 Yes 1000mg Take 1,000 Univers (GLUCOPHAGE 1-04 mg by ity of ) 1000 mg 10:59: mouth 2 [place] tablet 00 (two) MD times a Anderso day with n meals. [facility] omeprazole 2021-10- No 20mg Take 20 mg Univers (PriLOSEC) 10-15 by mouth ity of 20 mg 10:58: 00:00 every [place] capsule 57 :00 morning MD before Anderso breakfast. [facility] INV-(2021-10- Yes Acute 15mg Take 1 Un donnie 792) 10-15 02-03 lymphoblast tablet (15 i ty of PONATinib 00:00: 05:59 ic mg) by [place] 15 mg 00 :00 leukemia, mouth tablet in daily for Anderso remission 90 days. [facility] metoprolol Yes 37.5mg Take 1 Uni vers tartrate 8-16 tablet ity of (LOPRESSOR) 00:00: (37.5 mg) [place] 37.5 mg tab 00 by mouth MD tablet twice Anderso daily. [facility] INV-(2021- No Acute 15mg Take 1 Un donnie 792) 05-16 lymphoblast tablet (15 i ty of PONATinib 00:00: 04:59 ic mg) by [place] 15 mg 00 :00 leukemia, mouth tablet in daily for Anderso remission 90 days. [facility] metFORMIN metFORMIN No 1{table BID metFORMIN HCl 1000 MG HCl 1000 MG 7-21 t_with_ HCl 1000 00:00: a_meal} MG 00 metFORMIN metFORMIN No 1{table BID metFORMIN HCl 1000 MG HCl 1000 MG 7-21 t_with_ HCl 1000 00:00: a_meal} MG 00 metFORMIN metFORMIN No 1{table BID metFORMIN HCl 1000 MG HCl 1000 MG 7-21 t_with_ HCl 1000 00:00: a_meal} MG 00 rosuvastati Yes Acute TAKE 1 Uni vers n (CRESTOR) 5-11 lymphoid TABLET(5 ity of 5 mg tablet 00:00: leukemia MG) BY [place] 00 MOUTH AT MD BEDTIME Manisha [facility] INV-(2021- No Acute 15mg Take 1 Un donnie 792) 5-06 08-05 lymphoblast tablet (15 i ty of PONATinib 00:00: 04:59 ic mg) by [place] 15 mg 00 :00 leukemia, mouth tablet in daily for Anderso remission 90 days. [facility] alendronate Yes 1{tbl} Take 1 Un donnie (FOSAMAX) 2-24 tablet by ity o f 70 mg 00:00: mouth once [place] tablet 00 a week. MD Manisha avilez [facility] Alendronate Alendronate 2021- No Alendronat Sodium 70 Sodium 70 2-24 08-23 e Sodium MG MG 00:00: 00:00 70 MG 00 :00 amLODIPine 2021- No 1{tbl} Take 1 Un donnie (NORVASC) 2-15 11-04 tablet by ity of 10 mg 00:00: 00:00 mouth [place] tablet 00 :00 daily. MD Manisha avilez [facility] meloxicam 2021- No 7.5mg Take 7.5 Un donnie (MOBIC) 7.5 2-04 02-04 mg by ity of mg tablet 09:15: 00:00 mouth [place] 07 :00 daily. MD Manisha avilez [facility] rosuvastati 2021- No Acute 5mg Take 1 Un donnie n (Crestor) 11-15- lymphoid tablet (5 ity of 5 mg tablet 00:00: 00:00 leukemia mg) by [place] 00 :00 mouth at MD bedtime. [facility] INV-(2021- No Acute 15mg Take 1 Un donnie 792) 11-15- lymphoblast tablet (15 i ty of PONATinib 00:00: 04:59 ic mg) by [place] 15 mg 00 :00 leukemia, mouth MD tablet in daily for Anderso remission 90 days. [facility] INV-(2020-10- No Acute 15mg Take 1 Un donnie 792) 10-16 lymphoblast tablet (15 i ty of PONATinib 00:00: 05:59 ic mg) by [place] 15 mg 00 :00 leukemia, mouth MD tablet in daily for Anderso remission 90 days. [facility] amLODIPine 2021- No 1{tbl} Take 1 Un donnie (NORVASC) 7-27 11-15 tablet by ity of 10 mg 00:00: 00:00 mouth [place] tablet 00 :00 daily. MD Dyer [facility] LORazepam Yes .5mg Take 1 Univer s (Ativan) 5-10 tablet ity of 0.5 mg 00:00: (0.5 mg) [place] tablet 00 by mouth MD daily. [facility] amLODIPine Yes Acute TAKE 1 Univ ers (NORVASC) 5 2-05 lymphoblast TABLET BY ity of mg tablet 00:00: ic MOUTH [place] 00 leukemia, EVERY DAY. in HOLD FOR Anderso remission SYSTOLIC BLOOD Cancer [facility] LESS THAN 110 [facility] metoprolol 2019-10- No 25mg Take 25 mg Univers tartrate 11-21 by mouth ity of 37.5 mg tab 00:00: 00:00 [place] 00 :00 daily. MD Manisha avilez [facility] rosuvastati 2019-10- No Acute 5mg Take 1 Un donnie n (Crestor) 1-24 11- lymphoid tablet (5 ity of 5 mg tablet 00:00: 00:00 leukemia mg) by [place] 00 :00 mouth at bedtime. [facility] aspirin 81 2019-0 Yes prevention 81mg Chew 1 Univers mg chewable 2 of tablet (81 it y of tablet 00:00: cerebrovasc mg) daily. [place] 00 tanja PARRISH accident [facility] metoprolol 2021- No hypertensio 25mg Take 1 Univers tartrate 11-11 n tablet (25 ity of (LOPRESSOR) 00:00: 00:00 mg) by Shaji as 25 mg 00 :00 mouth tablet twice Anderso daily. n Hold for Cancer systolic Center blood pressure less than 110 mmHg or heart rate less than 55 beats per minute. PONATinib PONATinib No 1{table QD PONATinib HCl 15 MG HCl 15 MG t} HCl 15 MG Losartan Losartan No 1{table QD Losartan Potassium Potassium t} Potassium 100 MG 100 MG 100 MG Alendronate Alendronate No Alendronat Sodium 70 Sodium 70 e Sodium MG MG 70 MG Omeprazole Omeprazole No QD Omeprazole 20 MG 20 MG 20 MG amLODIPine amLODIPine No 1{table QD amLODIPine Besylate 10 Besylate 10 t} Besylate MG MG 10 MG Metoprolol Metoprolol No 1{table BID Metoprolol Tartrate Tartrate t_with_ Tartrate 37.5 MG 37.5 MG food} 37.5 MG Alendronate Alendronate No Alendronat Sodium 70 Sodium 70 e Sodium 70 metFORMIN metFORMIN No 1{table BID metFORMIN HCl 500 MG HCl 500 MG t_with_ HCl 500 MG meals} Rosuvastati Rosuvastati No 1{table QD Rosuvastat n Calcium 5 n Calcium 5 t} in Calcium MG MG 5 MG Aspirin 81 Aspirin 81 No Aspirin 81 Protonix 40 Protonix 40 No 1{table QD Protonix MG MG t} 40 MG metFORMIN metFORMIN No 1{table QD metFORMIN HCl 500 MG HCl 500 MG t_with_ HCl 500 MG a_meal} PONATinib PONATinib No 1{table QD PONATinib HCl 15 MG HCl 15 MG t} HCl 15 MG Losartan Losartan No 1{table QD Losartan Potassium Potassium t} Potassium 100 MG 100 MG 100 MG Aspirin 81 Aspirin 81 No Aspirin 81 Alendronate Alendronate No Alendronat Sodium 70 Sodium 70 e Sodium MG MG 70 MG Omeprazole Omeprazole No QD Omeprazole 20 MG 20 MG 20 MG Metoprolol Metoprolol No 1{table BID Metoprolol Tartrate Tartrate t_with_ Tartrate 37.5 MG 37.5 MG food} 37.5 MG Losartan Losartan No 1{table QD Losartan Potassium Potassium t} Potassium 100 MG 100 MG 100 MG Alendronate Alendronate No Alendronat Sodium 70 Sodium 70 e Sodium 70 amLODIPine amLODIPine No 1{table QD amLODIPine Besylate 10 Besylate 10 t} Besylate MG MG 10 MG Rosuvastati Rosuvastati No 1{table QD Rosuvastat n Calcium 5 n Calcium 5 t} in Calcium MG MG 5 MG PONATinib PONATinib No 1{table QD PONATinib HCl 15 MG HCl 15 MG t} HCl 15 MG metFORMIN metFORMIN No 1{table BID metFORMIN HCl 500 MG HCl 500 MG t_with_ HCl 500 MG meals} Protonix 40 Protonix 40 No 1{table QD Protonix MG MG t} 40 MG metFORMIN metFORMIN No 1{table BID metFORMIN HCl 500 MG HCl 500 MG t_with_ HCl 500 MG meals} amLODIPine amLODIPine No 1{table QD amLODIPine Besylate 10 Besylate 10 t} Besylate MG MG 10 MG PONATinib PONATinib No 1{table QD PONATinib HCl 15 MG HCl 15 MG t} HCl 15 MG Aspirin 81 Aspirin 81 No Aspirin 81 Omeprazole Omeprazole No QD Omeprazole 20 MG 20 MG 20 MG Losartan Losartan No 1{table QD Losartan Potassium Potassium t} Potassium 100 MG 100 MG 100 MG Metoprolol Metoprolol No 1{table BID Metoprolol Tartrate Tartrate t_with_ Tartrate 37.5 MG 37.5 MG food} 37.5 MG Alendronate Alendronate No Alendronat Sodium 70 Sodium 70 e Sodium MG MG 70 MG Alendronate Alendronate No Alendronat Sodium 70 Sodium 70 e Sodium 70 Rosuvastati Rosuvastati No 1{table QD Rosuvastat n Calcium 5 n Calcium 5 t} in Calcium MG MG 5 MG Protonix 40 Protonix 40 No 1{table QD Protonix MG MG t} 40 MG metFORMIN metFORMIN No 1{table BID metFORMIN HCl 500 MG HCl 500 MG t_with_ HCl 500 MG meals} amLODIPine amLODIPine No 1{table QD amLODIPine Besylate 10 Besylate 10 t} Besylate MG MG 10 MG PONATinib PONATinib No 1{table QD PONATinib HCl 15 MG HCl 15 MG t} HCl 15 MG Aspirin 81 Aspirin 81 No Aspirin 81 Omeprazole Omeprazole No QD Omeprazole 20 MG 20 MG 20 MG Losartan Losartan No 1{table QD Losartan Potassium Potassium t} Potassium 100 MG 100 MG 100 MG Metoprolol Metoprolol No 1{table BID Metoprolol Tartrate Tartrate t_with_ Tartrate 37.5 MG 37.5 MG food} 37.5 MG Alendronate Alendronate No Alendronat Sodium 70 Sodium 70 e Sodium MG MG 70 MG Alendronate Alendronate No Alendronat Sodium 70 Sodium 70 e Sodium 70 Rosuvastati Rosuvastati No 1{table QD Rosuvastat n Calcium 5 n Calcium 5 t} in Calcium MG MG 5 MG Protonix 40 Protonix 40 No 1{table QD Protonix MG MG t} 40 MG Aspirin 81 Aspirin 81 No Aspirin 81 metFORMIN metFORMIN No 1{table QD metFORMIN HCl 500 MG HCl 500 MG t_with_ HCl 500 MG a_meal} Omeprazole Omeprazole No QD Omeprazole 20 MG 20 MG 20 MG Alendronate Alendronate No Alendronat Sodium 70 Sodium 70 e Sodium 70 Metoprolol Metoprolol No 1{table BID Metoprolol Tartrate Tartrate t_with_ Tartrate 37.5 MG 37.5 MG food} 37.5 MG Meloxicam Meloxicam No 1{table QD Meloxicam 7.5 MG 7.5 MG t} 7.5 MG Losartan Losartan No 1{table QD Losartan Potassium Potassium t} Potassium 100 MG 100 MG 100 MG PONATinib PONATinib No 1{table QD PONATinib HCl 15 MG HCl 15 MG t} HCl 15 MG metFORMIN metFORMIN No 1{table BID metFORMIN HCl 500 MG HCl 500 MG t_with_ HCl 500 MG meals} amLODIPine amLODIPine No 1{table QD amLODIPine Besylate 10 Besylate 10 t} Besylate MG MG 10 MG Protonix 40 Protonix 40 No 1{table QD Protonix MG MG t} 40 MG Rosuvastati Rosuvastati No 1{table QD Rosuvastat n Calcium 5 n Calcium 5 t} in Calcium MG MG 5 MG PONATinib PONATinib No 1{table QD PONATinib HCl 15 MG HCl 15 MG t} HCl 15 MG Losartan Losartan No 1{table QD Losartan Potassium Potassium t} Potassium 100 MG 100 MG 100 MG Rosuvastati Rosuvastati No 1{table QD Rosuvastat n Calcium 5 n Calcium 5 t} in Calcium MG MG 5 MG Omeprazole Omeprazole No QD Omeprazole 20 MG 20 MG 20 MG metFORMIN metFORMIN No 1{table BID metFORMIN HCl 500 MG HCl 500 MG t_with_ HCl 500 MG meals} Alendronate Alendronate No Alendronat Sodium 70 Sodium 70 e Sodium 70 Protonix 40 Protonix 40 No 1{table QD Protonix MG MG t} 40 MG metFORMIN metFORMIN No 1{table QD metFORMIN HCl 500 MG HCl 500 MG t_with_ HCl 500 MG a_meal} Aspirin 81 Aspirin 81 No Aspirin 81 amLODIPine amLODIPine No 1{table QD amLODIPine Besylate 10 Besylate 10 t} Besylate MG MG 10 MG Metoprolol Metoprolol No 1{table BID Metoprolol Tartrate Tartrate t_with_ Tartrate 37.5 MG 37.5 MG food} 37.5 MG PONATinib PONATinib No 1{table QD PONATinib HCl 15 MG HCl 15 MG t} HCl 15 MG Losartan Losartan No 1{table QD Losartan Potassium Potassium t} Potassium 100 MG 100 MG 100 MG Rosuvastati Rosuvastati No 1{table QD Rosuvastat n Calcium 5 n Calcium 5 t} in Calcium MG MG 5 MG Omeprazole Omeprazole No QD Omeprazole 20 MG 20 MG 20 MG metFORMIN metFORMIN No 1{table BID metFORMIN HCl 500 MG HCl 500 MG t_with_ HCl 500 MG meals} Alendronate Alendronate No Alendronat Sodium 70 Sodium 70 e Sodium 70 Protonix 40 Protonix 40 No 1{table QD Protonix MG MG t} 40 MG metFORMIN metFORMIN No 1{table QD metFORMIN HCl 500 MG HCl 500 MG t_with_ HCl 500 MG a_meal} Aspirin 81 Aspirin 81 No Aspirin 81 amLODIPine amLODIPine No 1{table QD amLODIPine Besylate 10 Besylate 10 t} Besylate MG MG 10 MG Metoprolol Metoprolol No 1{table BID Metoprolol Tartrate Tartrate t_with_ Tartrate 37.5 MG 37.5 MG food} 37.5 MG Protonix 40 Protonix 40 No 1{table QD Protonix MG MG t} 40 MG Omeprazole Omeprazole No QD Omeprazole 20 MG 20 MG 20 MG Rosuvastati Rosuvastati No 1{table QD Rosuvastat n Calcium 5 n Calcium 5 t} in Calcium MG MG 5 MG Alendronate Alendronate No Alendronat Sodium 70 Sodium 70 e Sodium 70 metFORMIN metFORMIN No 1{table QD metFORMIN HCl 500 MG HCl 500 MG t_with_ HCl 500 MG a_meal} amLODIPine amLODIPine No 1{table QD amLODIPine Besylate 10 Besylate 10 t} Besylate MG MG 10 MG Metoprolol Metoprolol No 1{table BID Metoprolol Tartrate Tartrate t_with_ Tartrate 37.5 MG 37.5 MG food} 37.5 MG Aspirin 81 Aspirin 81 No Aspirin 81 metFORMIN metFORMIN No 1{table BID metFORMIN HCl 500 MG HCl 500 MG t_with_ HCl 500 MG meals} Immunizations Ordered Filled Immunization Date Status Comments Sour e Immunization Name Name [facility] SARS-CoV-2 2020-11-24 Completed Univer sity of Vaccination (Purple 00:00:00 [facility]) [facility] SARS-CoV-2 2020-11-03 Completed Univer sity of Vaccination (Purple 00:00:00 [facility]) [facility] Vital Signs Vital Name Observation Time Observation Value Comments Source height 2022-07-25 13:00:00 59.0 [in_i] [facility] weight 2022-07-25 13:00:00 150.6 [lb_av] [facility] temperature 2022-07-25 13:00:00 98.6 [degF] [facility] bmi 2022-07-25 13:00:00 30.41 kg/m2 [facility] oximetry 2022-07-25 13:00:00 95 % [facility] respiratory rate 2022-07-25 13:00:00 16 /min Comm on [facility] blood pressure 2022-07-25 13:00:00 137 mm[Hg] Common [facility] - systolic [facility] blood pressure 2022-07-25 13:00:00 81 mm[Hg] Common [facility] - diastolic [facility] height 2022-07-25 13:20:00 59.0 [in_i] [facility] weight 2022-07-25 13:20:00 150.6 [lb_av] [facility] temperature 2022-07-25 13:20:00 98.6 [degF] Common [facility] bmi 2022-07-25 13:20:00 30.41 kg/m2 Common S pirit [facility] oximetry 2022-07-25 13:20:00 95 % Common S pirit [facility] blood pressure 2022-07-25 13:20:00 137 mm[Hg] Common [facility] - systolic [facility] blood pressure 2022-07-25 13:20:00 81 mm[Hg] Common [facility] - diastolic [facility] height 2022-04-24 14:20:00 59 [in_i] Common S [facility] weight 2022-04-24 14:20:00 156.0 [lb_av] [facility] temperature 2022-04-24 14:20:00 97.6 [facility]degF[facility] bmi 2022-04-24 14:20:00 31.5 kg/m2 [facility] oximetry 2022-04-24 14:20:00 98 % [facility] respiratory rate 2022-04-24 14:20:00 16 /min Comm on [facility] - [facility] blood pressure 2022-04-24 14:20:00 139 mm[Hg] Common [facility] - systolic [facility] blood pressure 2022-04-24 14:20:00 86 mm[Hg] Common [facility] - diastolic [facility] height 2021-12-05 13:40:00 59 [in_i] Common S pirit [facility] weight 2021-12-05 13:40:00 157.6 [lb_av] [facility] temperature 2021-12-05 13:40:00 97.6 [facility]degF] [facility] bmi 2021-12-05 13:40:00 31.83 kg/m2 Common [facility] oximetry 2021-12-05 13:40:00 96 % Common S pirit [facility] blood pressure 2021-12-05 13:40:00 139 mm[Hg] Common [facility] - systolic [facility] blood pressure 2021-12-05 13:40:00 72 mm[Hg] Common [facility] - diastolic [facility] height 2021-07-19 14:40:00 59 [in_i] Common [facility] weight 2021-07-19 14:40:00 151.4 [lb_av] Common [facility] temperature 2021-07-19 14:40:00 98.2 [degF] Common [facility] bmi 2021-07-19 14:40:00 30.58 kg/m2 [facility] oximetry 2021-07-19 14:40:00 96 % [facility] respiratory rate 2021-07-19 14:40:00 17 /min Comm on [facility] blood pressure 2021-07-19 14:40:00 138 mm[Hg] Common [facility] - systolic [facility] blood pressure 2021-07-19 14:40:00 77 mm[Hg] Common [facility] - diastolic [facility] WEIGHT 2021-02-18 14:43:38 69.8 kg WEIGHT 2020-05-18 15:44:33 68.8 kg WEIGHT 2020-05-11 16:18:35 68.3 kg WEIGHT 2020-05-04 16:19:26 68.2 kg WEIGHT 2020-04-27 14:47:00 67.8 kg WEIGHT 2020-04-20 12:42:13 67.8 kg WEIGHT 2020-04-06 00:00:00 67.5 kg Oxygen saturation in 2022-08-15 14:53:48 94 /min University Arterial blood by José Miguel alejo Pulse oximetry [facility] Systolic blood 2022-08-15 14:53:48 137 mm[Hg] Univer sity of pressure José Miguel [facility] [facility] Diastolic blood 2022-08-15 14:53:48 83 mm[Hg] Unive rsity of pressure José Miguel [facility] Heart rate 2022-08-15 14:53:48 98 /min Universi [facility] Body temperature 2022-08-15 14:53:48 36.72 Michelle [facility] MD [facility] Respiratory rate 2022-08-15 14:53:48 18 /min [facility] MD [facility] Body weight 2022-08-15 14:53:48 67.8 kg Universi ty [facility] MD [facility] [facility] BMI 2022-08-15 14:53:48 29.35 kg/m2 Universi [facility] MD [facility] Procedures Procedure Date / Time Performing Clinician Source Performed TYPE AND SCREEN 2022-08-15 13:48:[address] [facility] COMPLETE BLOOD COUNT W/ 2022-08-15 13:48:00 [facility] TOTAL PROTEIN 2022-08-15 13:48:[address] [facility] ALBUMIN LEVEL 2022-08-15 13:48:[address] [facility] CALCIUM LEVEL TOTAL 2022-08-15 13:48:00 Marysol Allen [facility] PHOSPHORUS LEVEL 2022-08-15 13:48:00 Marysol Allen [facility] GLUCOSE, RANDOM 2022-08-15 13:48:[address] [facility] BLOOD UREA NITROGEN 2022-08-15 13:48:00 Marysol Allen [facility] SERUM CREATININE 2022-08-15 13:48:00 Marysol Allen [facility] URIC ACID 2022-08-15 13:48:[address] [facility] FRACTIONATED BILIRUBIN 2022-08-15 13:48:00 Marysol [facility] ALKALINE PHOSPHATASE 2022-08-15 13:48:[address] [facility] LACTATE DEHYDROGENASE 2022-08-15 13:48:[address] [facility] ALANINE AMINOTRANSFERASE 2022-08-15 13:48:00 [facility]sol [facility] ELECTROLYTE PANEL 2022-08-15 13:48:00 [facility] MAGNESI[facility] LEV[facility] 2022-08-15 13:48:[address] [facility] ASPARTATE AMINOTRANSFERASE 2022-08-15 13:48:[address] [facility] AMYLASE LEVEL 2022-08-15 13:48:[address] [facility] LIPASE LEVEL 2022-08-15 13:48:[address] [facility] TRIGLYCERIDES 2022-08-15 13:48:[address] [facility] ABORH 2022-08-15 13:48:[address] [facility] ANTIBODY SCREEN 2022-08-15 13:48:[address] [facility] Results CBC 2022-08-15 13:48:[address] [facility] MANUAL DIFFERENTIAL 2022-08-15 13:48:00 Marysol Allen [facility] SERUM CREATININE 2022-08-15 13:48:00 Marysol Allen [facility] .GLOMERULAR FILTRATION 2022-08-15 13:48:00 [facility]sol [facility] CLOT EXPIRATION DATE 2022-08-15 13:48:00 Marysol Allene [facility] TMP INTERPRETATION 2022-08-15 13:48:00 Marysol Allen [facility] ANTIBODY SCREEN NEGATIVE MD Ibarra [facility] HP T(9;22) BCR/ABL1 2022-05-16 12:33:00 Abiola Holley [facility] QUANTITATIVE PCR [facility] BLOOD Center TOTAL PROTEIN 2022-05-16 12:33:[address] [facility] ALBUMIN LEVEL 2022-05-16 12:33:[address] [facility] CALCIUM LEVEL TOTAL 2022-05-16 12:33:00 Abiola Holley [facility] PHOSPHORUS LEVEL 2022-05-16 12:33:[address] [facility] GLUCOSE, RANDOM 2022-05-16 12:33:[address] [facility] BLOOD UREA NITROGEN 2022-05-16 12:33:00 Abiola Holley [facility] SERUM CREATININE 2022-05-16 12:33:[address] [facility] URIC ACID 2022-05-16 12:33:[address] [facility] FRACTIONATED BILIRUBIN 2022-05-16 12:33:00 Abiola Holley [facility] ALKALINE PHOSPHATASE 2022-05-16 12:33:00 Abiola Holley [facility] LACTATE DEHYDROGENASE 2022-05-16 12:33:00 [facility] ALANINE AMINOTRANSFERASE 2022-05-16 12:33:00 HolleyAbiola sims [facility] ELECTROLYTE PANEL 2022-05-16 12:33:00 HolleyAbiola sims [facility] MAGNESIUM LEVEL 2022-05-16 12:33:[address] [facility] IMMUNOGLOBULIN A SERUM 2022-05-16 12:33:00 HolleyAbiola sims [facility] IMMUNOGLOBULIN M SERUM 2022-05-16 12:33:00 Abiola Holley [facility] IMMUNOGLOBULIN G SERUM 2022-05-16 12:33:00 Abiola Holley [facility] TYPE AND SCREEN 2022-05-16 12:33:[address] [facility] COMPLETE BLOOD COUNT W/ 2022-05-16 12:33:00 Abiola Holley [facility] DIFFERENTIAL [facility] SERUM CREATININE 2022-05-16 12:33:[address] [facility] .GLOMERULAR FILTRATION 2022-05-16 12:33:00 Abiola Holley [facility] RATE [facility] Results CBC 2022-05-16 12:33:[address] [facility] MANUAL DIFFERENTIAL 2022-05-16 12:33:00 Abiola Holley [facility] ABORH 2022-05-16 12:33:[address] [facility] ANTIBODY SCREEN 2022-05-16 12:33:[address] [facility] HP MD T(9;22) BCR/ABL1 2022-05-16 12:33:00 Abiola Holley [facility] QUANTITATIVE PCR [facility] INTERPRETATION AND REPORT Center TMP INTERPRETATION 2022-05-16 12:33:00 Abiola Holley [facility] ANTIBODY SCREEN NEGATIVE MD [facility] CLOT EXPIRATION DATE 2022-05-16 12:33:00 Abiola Holley [facility] HEMATOPATHOLOGY BONE 2022-02-14 19:38:00 Shiraz Pritchard [facility] MARROW INTERPRETATION MD Manisha avilez [facility] HEMATOPATHOLOGY BONE 2022-02-14 19:38:00 Shiraz Pritchard [facility] MARROW DIFFERENTIAL [facility] HP FC MRD B ALL 2022-02-14 19:36:00 Marysol Allen [facility] COLLECTION, NONBLOOD [facility] HP CG BCR/ABL1 T(9;22) 2022-02-14 19:36:00 Marysol Allen [facility] FISH COLLECTION, NONBLOOD [place] [facility] HP T(9;22) BCR/ABL1 2022-02-14 19:36:00 Marysol Allen [facility] QUANTITATIVE PCR [facility] COLLECTION, [facility] Center HP NOTCH1 - EXONS 26, 2022-02-14 19:36:00 Marysol Allen [facility] 27, 34 COLLECTION, MD Arnaud Monroe ancer [facility] Center HP MD TP53 COLLECTION, 2022-02-14 19:36:00 Marysol Allen [facility] NON[facility] HP CG CHROMOSOME ANALYSIS 2022-02-14 19:36:00 Marysol Allen [facility], [facility] ADAPTIVE CLONOSEQ-SEND 2022-02-14 19:36:00 Abiola Holley [facility] OUT, BONE MARROW [facility] HP CYTOGENETICS BLOOD 2022-02-14 19:36:00 Marysol Allen [facility] COLLECTION [facility] HP CG CHROMOSOME ANALYSIS 2022-02-14 19:36:00 Marysol Allen [facility] INTERPRETATION AND REPORT [facility] HP CG BCR/ABL1 T(9;22) 2022-02-14 19:36:00 Marysol Allen [facility] FISH INTERPRETATION AND MD [facility] Center HP FC FLOW CYTOMETRY BLOOD 2022-02-14 19:36:00 Marysol Allen [facility] COLLECTION [facility] HP MOLECULAR BLOOD 2022-02-14 19:36:00 Marysol Allen [facility] COLLECTION [facility] HP T(9;22) BCR/ABL1 2022-02-14 19:36:00 Marysol Allen [facility] QUANTITATIVE PCR [facility] INTERPRETATION AND REPORT Center HP FC MRD B ALL 2022-02-14 19:36:00 Marysol Allen [facility] INTERPRETATION AND REPORT [facility] FL DIAGNOSTIC BONE MARROW 2022-02-14 19:22:16 Marysol Allen [facility] ASPIRATIONS [facility] PERIPHERAL SMEAR FOR BONE 2022-02-14 12:55:00 Marysol Allen [facility] MARROW [facility] TYPE AND SCREEN 2022-02-14 12:55:[address] [facility] COMPLETE BLOOD COUNT W/ 2022-02-14 12:55:00 Marysol Allen [facility] DIFFERENTIAL [facility] TOTAL PROTEIN 2022-02-14 12:55:[address] [facility] ALBUMIN LEVEL 2022-02-14 12:55:[address] [facility] CALCIUM LEVEL TOTAL 2022-02-14 12:55:00 Marysol Allen [facility] PHOSPHORUS LEVEL 2022-02-14 12:55:00 Marysol Allen [facility] GLUCOSE, RANDOM 2022-02-14 12:55:[address] [facility] BLOOD UREA NITROGEN 2022-02-14 12:55:00 Marysol Allen [facility] SERUM CREATININE 2022-02-14 12:55:00 Marysol Allen [facility] URIC ACID 2022-02-14 12:55:[address] [facility] FRACTIONATED BILIRUBIN 2022-02-14 12:55:00 Marysol Allen [facility] ALKALINE PHOSPHATASE 2022-02-14 12:55:00 [facility] LACTATE DEHYDROGENASE 2022-02-14 12:55:00 Marysol Allen [facility] ALANINE AMINOTRANSFERASE 2022-02-14 12:55:00 Marysol Allen [facility] ELECTROLYTE PANEL 2022-02-14 12:55:00 [facility] MAGNESIUM LEVEL 2022-02-14 12:55:[address] [facility] AMYLASE LEVEL 2022-02-14 12:55:[address] [facility] LIPASE LEVEL 2022-02-14 12:55:[address] [facility] TRIGLYCERIDES 2022-02-14 12:55:[address] [facility] Results CBC 2022-02-14 12:55:[address] [facility] MANUAL DIFFERENTIAL 2022-02-14 12:55:00 Marysol Allen [facility] SERUM CREATININE 2022-02-14 12:55:00 Marysol Allen [facility] .GLOMERULAR FILTRATION 2022-02-14 12:55:00 Marysol Allen [facility] RATE [facility] ABORH 2022-02-14 12:55:[address] [facility] ANTIBODY SCREEN 2022-02-14 12:55:[address] [facility] CLOT EXPIRATION DATE 2022-02-14 12:55:00 [facility] TMP INTERPRETATION 2022-02-14 12:55:00 Marysol Allen [facility] ANTIBODY SCREEN NEGATIVE MD Ibarra [facility] HP T(9;22) BCR/ABL1 2021-11-15 14:22:00 Mayrsol Allen [facility] QUANTITATIVE PCR [facility] BLOOD Center TOTAL PROTEIN 2021-11-15 14:22:00 Marysol Allen [facility] [place] ALBUMIN LEVEL 2021-11-15 14:22:[address] [facility] CALCIUM LEVEL TOTAL 2021-11-15 14:22:00 Marysol Allen [facility] PHOSPHORUS LEVEL 2021-11-15 14:22:00 Marysol Allen [facility] GLUCOSE, RANDOM 2021-11-15 14:22:[address] [facility] BLOOD UREA NITROGEN 2021-11-15 14:22:00 Marysol Allen [facility] SERUM CREATININE 2021-11-15 14:22:00 Marysol Allen [facility] URIC ACID 2021-11-15 14:22:[address] [facility] FRACTIONATED BILIRUBIN 2021-11-15 14:22:00 Marysol Allen [facility] ALKALINE PHOSPHATASE 2021-11-15 14:22:00 Marysol Allen [facility] LACTATE DEHYDROGENASE 2021-11-15 14:22:[address] [facility] ALANINE AMINOTRANSFERASE 2021-11-15 14:22:00 Marysol Allen U [facility] ELECTROLYTE PANEL 2021-11-15 14:22:00 Marysol Allen [facility] MAGNESIUM LEVEL 2021-11-15 14:22:[address] [facility] IMMUNOGLOBULIN A SERUM 2021-11-15 14:22:00 Marysol Allen Uni [facility] IMMUNOGLOBULIN M SERUM 2021-11-15 14:22:00 Marysol Allen [facility] IMMUNOGLOBULIN G SERUM 2021-11-15 14:22:00 Marysol Allen [facility] TYPE AND SCREEN 2021-11-15 14:22:[address] [facility] COMPLETE BLOOD COUNT W/ 2021-11-15 14:22:00 Marysol Allen [facility] DIFFERENTIAL [facility] SERUM CREATININE 2021-11-15 14:22:00 [facility] .GLOMERULAR FILTRATION 2021-11-15 14:22:00 Marysol Allen Uni versity [facility] RATE [facility] Results CBC 2021-11-15 14:22:[address] [facility] MANUAL DIFFERENTIAL 2021-11-15 14:22:00 [facility]H 2021-11-15 14:22:[address] [facility] ANTIBODY SCREEN 2021-11-15 14:22:[address] [facility] HP MD T(9;22) BCR/ABL1 2021-11-15 14:22:00 Marysol Allen [facility] QUANTITATIVE PCR [facility] INTERPRETATION AND REPORT Center TMP INTERPRETATION 2021-11-15 14:22:00 Marysol Allen [facility] ANTIBODY SCREEN NEGATIVE MD Ibarra [facility] CLOT EXPIRATION DATE 2021-11-15 14:22:00 Marysol Allene [facility] Plan of Care Planned Activity Planned Date Details Comments Source Future Scheduled 2022-10-02 COVID-19 Vaccination [facility] Test 12:37:28 (3 - [facility]) [code = Center COVID-19 Vaccination (3 - Pfizer risk series)] Encounters Start End Encounter Admission Attending Care Care Encounter Source Date/Time Date/Time Type Type Clinicians Facility Department ID 2022-07-25 Outpatient Malinda Nobles [facility] [id number] Common 15:23:01 [facility] 2021-12-05 Outpatient [facility] [id number] 2 Common 13:03:01 [facility] 2021-11-06 Outpatient Malinda Nobles STLMLC STLMLC [id number] 2 Common 13:24:13 [id number] [facility] 2021-11-06 Outpatient STLMLC STLMLC [id number] Common 13:01:24 89701 [facility] 2021-11-06 Outpatient Kristel, STLMLC STLMLC [id number] Common 12:55:38 Mar [id number] [facility] 2021-11-06 Outpatient Kristel, STLMLC STLMLC [id number] Common 12:11:07 Mar [id number] [facility] 2021-11-06 Outpatient Kristel, STLMLC STLMLC [id number] Common 12:07:25 Mar [id number] [facility] 2021-11-06 Outpatient Kristel, STLMLC STLMLC [id number] Common 12:06:11 Mar [id number] [facility] 2020-04-20 Outpatient EMMA CARTER [id number] 13:45:57 [facility] 2022 2022 Orders Alejandro, 1.2.840.1 [id number] Univers 00:00:00 00:00:00 Only Marysol Avilez 50275.1.1 i ty of 3.412.2.7 [place] .3.809165 MD Allen [facility] 2022-08-18 2022-08-18 Orders Delumpa, 1.2.840.1 [id number] Univers 00:00:00 00:00:00 Only Mario Wren 57689.1.1 it y of 3.412.2.7 [place] .3.829460 MD Allen [facility] 2022-08-15 2022-08-15 [facility] Francheska, 1.2.840.1 [id number] Univers 08:42:59 23:59:00 Shelley Weldon 20877.1.1 i ty of 3.412.2.7 [place] .3.400424 MD Allen [facility] 2022-08-15 2022-08-15 Outpatient IVA PRITCHARD MDA MDA [id number] 08:42:59 23:59:00 SHIRAZ avilez 2022-08-15 2022-08-15 Office Short, 1.2.840.1 [id number] Univers 11:00:00 11:15:00 Visit Shiraz 79232.1.1 ity of 3.412.2.7 [place] .3.706198 MD Allen [facility] 2022-08-15 2022-08-15 Outpatient IVA PRITCHARD, [facility] [id number] 09:44:31 09:44:31 SHIRAZ avilez 2022-08-15 2022-08-15 Documentat [place], 1.2.840.1 [id number] Univers 00:00:00 00:00:00 ion Mario Wren 63873.1.1 it y of 3.412.2.7 [place] .3.731928 MD Allen [facility] 2022-08-15 2022-08-15 Orders Francheska, 1.2.840.1 [id number] Univers 00:00:00 00:00:00 Only Shiraz 02181.1.1 ity of 3.412.2.7 [place] .3.787947 MD Allen [facility] 2022-08-15 2022-08-15 Orders Carlos, 1.2.840.1 [id number] Univers 00:00:00 00:00:00 Only Mariaa 71892.1.1 ity of 3.412.2.7 [place] .3.748823 MD Allen [facility] 2022-08-15 2022-08-15 Travel 1.2.840.1 1.2.970.488 [id number] Univers 00:00:00 00:00:00 81100.1.1 350.1.13.41 ity of 3.412.2.7 [place].3.698 [place] .3.353905 084.8 MD Allen [facility] 2022-07-25 2022-07-25 [facility] [id number] Common 00:00:00 00:00:00 MCR Spirit WELLNESS - CHI VISIT [facility] 2022-07-25 2022-07-25 OFFICE [facility] [id number] Co mmon 00:00:00 00:00:00 VISIT EST Spir it PT LEVEL 3 - [facility] 2022-05-29 2022-05-29 Orders Alejandro, 1.2.840.1 [id number] Univers 00:00:00 00:00:00 Only Marysol Avilez 23017.1.1 i ty of 3.412.2.7 [place] .3.652146 MD Vásquez8 [facility] 2022-05-21 2022-05-21 Orders Eusebio, 1.2.840.1 [id number] Univers 00:00:00 00:00:00 Only Mario Wren 09027.1.1 it y of 3.412.2.7 [place] .3.329119 MD Vásquez8 [facility] 2022-05-16 2022-05-16 Hospital Holley, 1.2.840.1 [id number] Univers 07:29:08 23:59:00 Encounter Abiola Monroe 71489.1.1 it y of 3.412.2.7 [place] .3.198514 MD Vásquez8 [facility] 2022-05-16 2022-05-16 Outpatient [facility] MDA [id number] MD 07:29:08 23:59:00 ABIOLA avilez 2022-05-16 2022-05-16 Office Francheska 1.2.840.1 [id number] Univers 08:45:00 09:00:00 Visit Shiraz 71022.1.1 ity of 3.412.2.7 [place] .3.329175 MD [facility]8 [facility] 2022-05-16 2022-05-16 Outpatient IVA PRITCHARD MDA MDA [id number] MD 07:37:45 07:37:45 SHIRAZ avilez 2022-05-16 2022-05-16 Documentat Eusebio, 1.2.840.1 [id number] Univers 00:00:00 00:00:00 ion Mario Wren 66331.1.1 it y of 3.412.2.7 [place] .3.028568 MD Allen [facility] 2022-05-16 2022-05-16 Orders Francheska, 1.2.840.1 [id number] Univers 00:00:00 00:00:00 Only Shiraz 71001.1.1 ity of 3.412.2.7 [place] .3.154517 MD Allen [facility] 2022-05-16 2022-05-16 Orders Anthony, 1.2.840.1 [id number] Univers 00:00:00 00:00:00 Only Selena Drew 57104.1.1 ity of 3.412.2.7 [place] .3.649130 MD Allen [facility] 2022-05-16 2022-05-16 Orders Eusebio, 1.2.840.1 [id number] Univers 00:00:00 00:00:00 Only Mario Wren 92302.1.1 it y of 3.412.2.7 [place] .3.310453 MD Allen [facility] 2022-05-16 2022-05-16 Travel 1.2.840.1 1.2.808.162 [id number] Univers 00:00:00 00:00:00 53576.1.1 350.1.13.41 ity of 3.412.2.7 [place]3.698 [place] .3.1932[place] 084.8 MD Allen [facility] 2022-05-09 2022-05-09 Orders Dipippo, 1.2.840.1 [id number] Univers 00:00:00 00:00:00 Only Palomo Soto 20304.1.1 ity of 3.412.2.7 [place] .3.395834 MD Allen [facility] 2022-05-09 2022-05-09 Orders Delfabya, 1.2.840.1 [id number] Univers 00:00:00 00:00:00 Only Mario Wren 51600.1.1 it y of 3.412.2.7 [place] .3.544997 MD Allen [facility] 2022-05-01 2022-05-01 (TEL) STLMLC STLMLC [id number] Co mmon 00:00:00 00:00:00 Spirit - [facility] 2022-04-24 2022-04-24 OFFICE STLMLC STLC [id number] Co mmon 00:00:00 00:00:00 VISIT Spirit ESTAB PT - CHI LEVEL 4 [facility] 2022-02-24 2022-02-24 Orders Alejandro, 1.2.840.1 [id number] Univers 00:00:00 00:00:00 Only Marysol Avilez 13721.1.1 i ty of 3.412.2.7 [place] .3.673263 MD Allen [facility] 2022-02-20 2022-02-20 Orders Holley, 1.2.840.1 [id number] Univers 00:00:00 00:00:00 Only Abiola Monroe 31384.1.1 ity of 3.412.2.7 [place] .3.977819 MD Allen [facility] 2022-02-18 2022-02-18 Reflizzie Allen, 1.2.840.1 [id number] Univers 00:00:00 00:00:00 Marysol Avilez 00193.1.1 i ty of 3.412.2.7 [place] .3.496259 MD Allen [facility] 2022-02-18 2022-02-18 Orders Holley, 1.2.840.1 [id number] Univers 00:00:00 00:00:00 Only Abiola C 85608.1.1 ity of 3.412.2.7 [place] .3.307194 MD Allen [facility] 2022-02-14 2022-02-14 [facility] Shiraz Pritchard 1.2.840.1 [id number] Univers 12:42:48 23:59:00 Encounter Greta Day 89952.1.1 ity of 3.412.2.7 [place] .3.104515 MD Allen [facility] 2022-02-14 2022-02-14 Outpatient FRANCHESKA [facility] [id number] MD 12:42:48 23:59:00 SHIRAZ avilez 2022-02-14 2022-02-14 Outpatient [facility] [id number] MD 07:37:36 12:41:00 SHIRAZ avilez 2022-02-14 2022-02-14 [facility], 1.2.840.1 [id number] [facility] 07:37:36 12:41:00 Encounter Shiraz 25288.1.1 i ty of 3.412.2.7 [place] .3.201520 MD Allen [facility] 2022-02-14 2022-02-14 [facility], 1.2.840.1 [id number] Univers 11:00:00 11:20:00 Visit Shiraz 19212.1.1 ity of 3.412.2.7 [place] .3.569691 MD Vásquez8 [facility] 2022-02-14 2022-02-14 [facility] [id number] MD 07:49:43 07:49:43 SHIRAZ avilez 2022-02-14 2022-02-14 Orders Eusebio, 1.2.840.1 [id number] Univers 00:00:00 00:00:00 Only Mario Wren 60287.1.1 it y of 3.412.2.7 [place] .3.660841 MD Allen [facility] 2022-02-14 2022-02-14 Orders Shay 1.2.840.1 [id number] Univers 00:00:00 00:00:00 Only Greta Monroe 12814.1.1 ity of 3.412.2.7 [place] .3.400844 MD Vásquez8 [facility] 2022-02-14 2022-02-14 Orders Short, 1.2.840.1 [id number] Univers 00:00:00 00:00:00 Only Shiraz 83269.1.1 ity of 3.412.2.7 [place] .3.513604 MD Allen [facility] 2022-02-14 2022-02-14 Travel 1.2.840.1 1.2.998.219 [id number] Univers 00:00:00 00:00:00 16582.1.1 350.1.13.41 ity of 3.412.2.7 [place]7.3.698 [place] .3.223229 084.8 MD Allen [facility] 2022-02-07 2022-02-07 Telephone Igor, 1.2.840.1 [id number] Univers 00:00:00 00:00:00 Lijo Jeremy 42531.1.1 ity of 3.412.2.7 [place] .3.265730 MD Allen [facility] 2021-12-05 2021-12-05 OFFICE STLMLC STLMLC [id number] Co mmon 00:00:00 00:00:00 VISIT Spirit ESTAB PT - CHI LEVEL 4 [facility] 2021-11-15 2021-11-15 Outpatient IVA PRITCHARD, MDA MDA [id number] MD 08:00:00 23:59:00 SHIRAZ avilez 2021-11-15 2021-11-15 [facility] Short, 1.2.840.1 [id number] Univers 08:00:00 23:59:00 Encounter Shiraz 90333.1.1 i ty of 3.412.2.7 [place] .3.660617 MD Allen [facility] 2021-11-15 2021-11-15 Office Francheska, 1.2.840.1 [id number] Univers 09:40:00 10:00:00 Visit Shiraz 25720.1.1 ity of 3.412.2.7 [place] .3.124833 MD Allen [facility] 2021-11-15 2021-11-15 Outpatient IVA PRITCHARD, [facility] [id number] 08:55:04 08:55:04 SHIRAZ Pak [facility] 2021-11-15 2021-11-15 Documentat Mayor, 1.2.840.1 [id number] Univers 00:00:00 00:00:00 ion Kimberlyghene 98998.1.1 i ty of D 3.412.2.7 [place] .3.114317 MD Allen [facility] 2021-11-15 2021-11-15 Orders Mayor, 1.2.840.1 [id number] Univers 00:00:00 00:00:00 Only Ejiroghene 14446.1.1 i ty of D 3.412.2.7 [place] .3.089596 MD Allen [facility] 2021-11-15 2021-11-15 Orders Short, 1.2.840.1 [id number] Univers 00:00:00 00:00:00 Only Shiraz 27040.1.1 ity of 3.412.2.7 [place] .3.129440 MD Allen [facility] 2021-11-15 2021-11-15 Travel 1.2.840.1 1.2.615.872 [id number] Univers 00:00:00 00:00:00 17485.1.1 350.1.13.41 ity of 3.412.2.7 2[place]7.3.698 [place] .3.438836 084.8 MD Allen [facility] 2021-10-15 2021-10-15 Serafin Hopper, 1.2.840.1 [id number] Univers 00:00:00 00:00:00 Lyssa 50335.1.1 ity of 3.412.2.7 [place] .3.458598 MD [facility] 2021-08-18 2021-08-18 (TEL) STLMLC STLMLC [id number] Co mmon 00:00:00 00:00:00 [facility] 2021-08-16 2021-08-16 Outpatient EL SHORT, MDA MDA [id number] 10:20:59 23:59:00 SHIRAZ avilez 2021-08-16 2021-08-16 Outpatient EL SHORT, MDA MDA [id number] 12:17:03 12:17:03 SHIRAZ avilez 2021-08-16 2021-08-16 Outpatient EL SHORT, MDA MDA [id number] 09:52:17 10:19:00 SHIRAZ avilez 2021-08-16 2021-08-16 Outpatient EL SHORT, MDA MDA [id number] 07:54:42 09:51:00 SHIRAZ avilez 2021-08-16 2021-08-16 Outpatient EL SHORT, MDA MDA [id number] 08:49:58 08:49:58 SHIRAZ avilez 2021-07-19 2021-07-19 Outpatient EL SHORT, MDA MDA [id number] 07:58:15 23:59:00 SHIRAZ avilez 2021-07-19 2021-07-19 Outpatient EL SHORT, MDA MDA [id number] 07:58:37 07:58:37 SHIRAZ avilez 2021-07-19 2021-07-19 OFFICE STLMLC STLC [id number] Co mmon 00:00:00 00:00:00 VISIT EST Spir it PT LEVEL 3 - [facility] 2021-05-24 2021-05-24 Outpatient EL ORAL PALENCIA MDA MDA [id number] 08:43:19 23:59:00 Tc avilez 2021-05-24 2021-05-24 Outpatient EL SHORT, MDA MDA [id number] 10:14:57 10:14:57 SHIRAZ avilez 2021-04-22 2021-04-22 (TEL) STLMLC STLC [id number] Co mmon 00:00:00 00:00:00 [facility] 2021-04-19 2021-04-19 Outpatient STLMLC STLMLC [id number] Common 00:00:00 00:00:00 [facility] 2021-02-18 2021-02-18 Outpatient EL ORAL PALENCIA MDA MDA [id number] 16:00:00 23:59:00 Tc avilez 2021-02-18 2021-02-18 Outpatient EL DANETTE, MDA MDA [id number] 13:09:02 15:59:00 MARTHAIVY Ibarra tequila avilez 2021-02-18 2021-02-18 Outpatient EL FRANCHESKA, MDA MDA [id number] 14:34:38 15:49:08 SHIRAZ avilez 2021-02-05 2021-02-05 Outpatient STLMLC STLMLC [id number] Common 00:00:00 00:00:00 [facility] 2020-12-04 2020-12-04 Outpatient STLMLC STLMLC [id number] Common 00:00:00 00:00:00 [facility] 2020-11-24 2020-11-24 Outpatient EL FRANCHESKA, MDA MDA [id number] 08:35:16 08:54:19 SHIRAZ avilez 2020-11-16 2020-11-16 Outpatient EL FLOYD, MDA MDA [id number] 08:35:24 23:59:00 BENJAMIN avilez 2020-11-16 2020-11-16 Outpatient EL FRANCHESKA, MDA MDA [id number] 09:53:32 09:53:32 SHIRAZ avilez 2020-11-03 2020-11-03 Outpatient EL TASHA, MDA MDA [id number] 09:04:59 09:22:58 DALILA avilez 2020-10-19 2020-10-19 Outpatient STLMLC STLMLC [id number] Common 00:00:00 00:00:00 [facility] 2020-09-21 2020-09-21 Outpatient STLMLC STLMLC [id number] Common 00:00:00 00:00:00 [facility] 2020-09-19 2020-09-19 Outpatient STLMLC STLMLC [id number] Common 00:00:00 00:00:00 [facility] 2020-08-28 2020-08-28 Outpatient STLMLC STLC [id number] Common 00:00:00 00:00:00 [facility] 2020-08-24 2020-08-24 Outpatient EL DAHL, MDA MDA [id number] MD 10:37:58 23:59:00 BENJAMIN avilez 2020-08-24 2020-08-24 Outpatient EL DAHL, MDA MDA [id number] 07:49:41 10:36:00 BENJAMIN avilez 2020-08-24 2020-08-24 Outpatient EL SHORT, MDA MDA [id number] 08:56:27 08:56:27 SHIRAZ avilez 2020-07-27 2020-07-27 Outpatient EL DAHL, MDA MDA [id number] 08:00:00 23:59:00 BENJAMIN avilez 2020-07-27 2020-07-27 Outpatient EL DAHL, MDA MDA [id number] 08:02:52 08:02:52 BENJAMIN avilez 2020-06-01 2020-06-01 Outpatient EL SHORT, MDA MDA [id number] MD 15:02:18 23:59:00 SHIRAZ avilez 2020-06-01 2020-06-01 Outpatient EL HOLLEY, MDA MDA [id number] MD 13:00:00 15:01:00 ABIOLA avilez 2020-06-01 2020-06-01 Outpatient EL SHORT, MDA MDA [id number] MD 13:58:11 13:58:11 SHIRAZ avilez 2020-05-18 2020-05-18 Outpatient EL SHORT, MDA MDA [id number] MD 15:30:00 23:59:00 SHIRAZ avilez 2020-05-18 2020-05-18 Outpatient EL LINDSAY, MDA MDA [id number] MD 14:00:00 15:29:00 JENNA avilez 2020-05-11 2020-05-11 Outpatient EL SHORT, MDA MDA [id number] MD 17:06:29 23:59:00 SHIRAZ avilez 2020-05-11 2020-05-11 Outpatient EL SHORT, MDA MDA [id number] 15:30:00 17:05:00 SHIRAZ avilez 2020-05-04 2020-05-04 Outpatient EL SHORT, MDA MDA [id number] MD 15:16:48 23:59:00 SHIRAZ laureano n 2020-04-27 2020-04-27 Outpatient EL SHORT, MDA MDA [id number] MD 14:09:38 23:59:00 SHIRAZ avilez 2020-04-20 2020-04-20 Outpatient EL DAHL, MDA MDA [id number] MD 09:00:00 23:59:00 BENJAMIN avilez 2020-04-20 2020-04-20 Outpatient EL DAHL, MDA MDA [id number] MD 12:23:06 22:51:24 BENJAMIN avilez 2020-04-20 2020-04-20 Outpatient EL SHORT, MDA MDA [id number] MD 09:06:53 09:06:53 SHIRAZ avilez 2020-04-20 2020-04-20 Outpatient EL DAHL, MDA MDA [id number] MD 08:30:00 08:59:00 BENJAMIN avilez 2020-04-06 2020-04-06 Outpatient EL SHORT, MDA MDA [id number] MD 12:00:00 23:59:00 SHIRAZ avilez 2020-04-06 2020-04-06 Outpatient EL DAHL, MDA MDA [id number] MD 08:08:54 11:59:00 BENJAMIN avilez 2020-04-06 2020-04-06 Outpatient EL SHORT, MDA MDA [id number] MD 09:27:47 09:27:47 SHIRAZ avilez 2020-04-06 2020-04-06 Outpatient EL DAHL, MDA MDA [id number] MD 08:09:28 08:09:28 BENJAMIN avilez 2020-03-30 2020-03-30 Outpatient EL SHORT, MDA MDA [id number] MD 13:13:36 23:59:00 SHIRAZ avilez 2020-03-23 2020-03-23 Outpatient EL DAHL, MDA MDA [id number] MD 09:00:12 12:40:00 BENJAMIN laureano n Results Test Description Test Time Test Comments Results Result Comments Source TMP Interpretation Antibody Screen Negative 2022-08-15 21:59 :32 Test Item Value Reference Range Interpretation Comme nts TMP At the present LALITA Auto time, patient MD MAYLIN - [id number] by: LALITA CARLISLE [place] - [place] [id number] d Date/Time: 08.15.2022 16:59 PM CDT Transcribed ABSC evidence of RBC Date/Time: 10.15.2021 16:59 PM CDTElectronically Signed By: Intermarkell alloantibodisimon. [place]ITA [place]URSTON [place] - [id number] on 08.15.2022 16:59 PM (test code = 7535) [facility]Ant[facility] [id number] 18:24:53 Test Item Value Reference Range Interpretation Comments ABSC. (test code = 890-4) Negative ABSC [facility]ABORh2022-[facility]-04 18:24:52 Test Item Value Reference Range Interpretation Comments ABORh. (test code = 882-1) O POS [facility] AllenClot Expiration [id number] 18:24:49 Test Item Value Reference Range Interpretation Comments T & S Expiration (test code = 08/18/2022 5318) [facility] AllenAmylase [id number] 15:26:51 Test Item Value Reference Range Interpretation Comments Amylase Lvl (test code = 1798-8) 33 U/L 28-100 [facility] AllenLipase2022-11-04 15:26:50 Test Item Value Reference Range Interpretation Comments Lipase Lvl (test code = 3040-3) 37 U/L 13-60 [facility] AllenFractionated [id number] 14:58:49 Test Item Value Reference Range Interpretation Comments Bili Total (test 0.3 mg/dL See_Comment Indocyanine Green (ICG) code = 1975-2) may cause fal sely elevated biliru bin results. Total and direct bilirubin must not be measured from s amples containing indo cyanine green. False el evation of total bilirubin can be seen in patient s with IgG concentrations above 28 g/L. [Automated message] The system [employer] generated this result transmitted ref erence range: <=1.2. T he reference range was not used to interpr et this result as normal/abnormal . Bili Direct (test See_Comment Indocyanin e Green (ICG) code = 1968-04) may cause fal sely elevated biliru bin results. Total and direct bilirubin must not be measured from s amples containing indo cyanine green. [Automat ed message] The sy stem which generated this result transmitted ref erence range: <=0.3. T he reference range was not used to interpr et this result as normal/abnormal . Bili Indirect (test See Note 0.0-0.9 Unable t o calculate code = 1970-10) Indirect Bili elias result due to some par ameters are outside rep ortable range [facility] AllenGlomerular Filtration Rate 2022-08-15 14:58:47 Test Item Value Reference Range Interpretation Comments eGFR (test 88 See_Comment The eGFRcr is c alculated code = 42759) with the 2020 CKD-EPI creatinine equa tion using creatinin e, patient's age, and sex for adults 18 y ears of age and older. Other factors, especi ally muscle mass, ma y affect accuracy and ne ed to be considered.Acco rding to the Kidney Dise ase: Improving Globa l Outcomes (KDIGO ) CKD Work Group 2012 Clinical Practice Guidel ine, chronic kidney disease (CKD) is define d as the abnormalities o f kidney structure or fu nction, present for mor e than 3 months, with implications fo r health. CKD should be c lassified by cause, GFR c ategory, and albuminuria category. KDIGO guidelines prov matthew the following GFR categoriesStage Description GFR mL/min/1.73 m2G 1* Normal or high >= 90G2 * Mildly decreased 60-89 G3a Mildly to moder ately decreased 45-59 G3b Moderately to s everely decreased 30-44 G4 Severely decrea sed 15-29G5 Kidney failure <15*In the abse nce of evidence of kid arelis damage, neither G1 nor G2 fulfill crit eria for CKD. [Automated message] The system [employer] generated this result transmitted ref erence range: >=60 mL/ min/1.73 sq. m. The refe rence range was not u sed to interpret this result as normal/abnormal . NAHUN (test Schedule in Fast code = NAHUN) Track [facility] AllenMagnesium Bwezy0421-45-09 14:58:46 Test Item Value Reference Range Interpretation Comments Magnesium (test code = 1.8 mg/dL 1.6-2.6 16517-2) NAHUN (test code = NAHUN) Schedule in Fast Track [facility] AllenLDH2022-11-04 14:58:45 Test Item Value Reference Range Interpretation Comments LDH (test code = 218 U/L 135-214 H Results gre ater 70068-2) than 1651 U/L m ay not be reliable due to matrix effect with extended diluti on as it exceeds t he project manager [employer]'s recommended pickens it. Caution should be exercised when interpreting batista ch values and done in conjunction wit h clinical contex t. NAHUN (test code = NAHUN) Schedule in Fast Track Lab Interpretation Abnormal (test code = 17300-5) [facility] AllenAlkaline Eeuhounlsqo1699-94-03 14:58:43 Test Item Value Reference Range Interpretation Comments Alk Phos (test code = 128 U/L 35-104 H 6768-6) NAHUN (test code = NAHUN) Schedule in Fast Track Lab Interpretation (test Abnormal code = 04803-0) [facility] AllenGlucose, Zrsilj5224-12-32 14:58:42 Test Item Value Reference Range Interpretation Comments Glucose Random 160 mg/dL 70-199 Effective 04/12 04/26, (test code = the glucose 2345-7) reference inter vals have been updat ed based on [place] an Diabetes Associ ation guidelines (Standards of Medical Care in Diabetes 2016. Diabetes Care 2 016; 39: S13-S22).Fa sting blood glucose:Normal: 70-99 mg/dLImpa ired fasting glucose (increased risk for diabetes or pre-diabetes): 100-125 mg/dLDiabetes mellitus: >/=12 6 mg/dL Random bl ood glucose:Normal: 70-199 mg/dLNot e: Random glucose >100 mg/dL is associ ated with increased risk for diabetes NAHUN (test code = Schedule in Fast NAHUN) Track [facility] AllenAlbumin Rasdg6855-60-95 14:58:41 Test Item Value Reference Range Interpretation Comments Albumin Lvl (test 4.6 See_Comment [Automate d message] code = 1751-7) The system ich generated this result transmit nacho reference range : 3.5 - 5.2 gm/dL. Th e reference range was not used to interpret this result as normal/abnormal . NAHUN (test code = Schedule in Fast NAHUN) Track [facility] AllenUric [id number] 14:58:40 Test Item Value Reference Range Interpretation Comments Uric Acid (test code = 5.3 mg/dL 2.4-5.7 3084-1) NAHUN (test code = NAHUN) Schedule in Fast Track [facility] AllenAspartate Aminotransferase 2022-08-15 14:58:39 Test Item Value Reference Range Interpretation Comments AST (test code 22 U/L See_Comment [Automated m essage] = 1919-8) The system [facility] generated this result transmitted ref erence range: <=32. Th e reference range was not used to int erpret this result as normal/abnormal . NAHUN (test code Schedule in Fast = NAHUN) Track [facility] AllenTriglycerides2022-11-04 14:58:38 Test Item Value Reference Range Interpretation Comments Trig (test code = 88 mg/dL See_Comment ATP III Cl assification of 2571-8) Serum Triglycer ides Primary Target of Therapy (in mg/dL):<150 [id number] B orderline [id number] Hig h>=500 Very highNon-fasting triglycerides > 200 mg/dL may be followed up with a fasting Lipid P cullen. Calculated LDL- C may be falsely decreas ed when non-fasting tri glycerides >200 mg/dL. [Au tomated message] The sy stem which generated this result transmitted ref erence range: <=149. T he reference range was not u sed to interpret this result as normal/abnormal . [facility] AllenElectrolyte Lqrdt5361-37-62 14:58:37 Test Item Value Reference Range Interpretation Comments Sodium Lvl (test 138 See_Comment [Automated code = 2951-2) message] The system which generated this result transmitted reference range : 136 - 145 mEq/L . The reference r klaus was not used to interpret this result as normal/abnormal . Potassium Lvl 4.1 See_Comment [Automated (test code = message] The sy stem 2823-3) which generated this result transmitted reference range : 3.5 - 5.1 mEq/L . The reference r klaus was not used to interpret this result as normal/abnormal . Chloride (test 102 See_Comment [Automated code = 5-0) message] The system which generated this result transmitted reference range : 98 - 107 mEq/L. Th e reference range was not used to interpret this result as normal/abnormal . CO2 (test code = 27 See_Comment [Automated 2028-06) message] The sy stem which generated this result transmitted reference range : 22 - 29 mEq/L. The reference range was not used to interpret this result as normal/abnormal . Anion Gap (test 9 See_Comment [Automated code = 16621-2) message] The system which generated this result transmitted reference range : 4 - 14 mEq/L. The reference range was not used to interpret this result as normal/abnormal . NAHUN (test code = Schedule in Fast NAHUN) Track [facility] AllenTotal Klrmbhs3005-76-23 14:58:36 Test Item Value Reference Range Interpretation Comments Total Protein (test 7.4 g/dL 6.4-8.3 code = 2885-2) NAHUN (test code = NAHUN) Schedule in Fast Track [facility].Serum Wqaaljatpy9750-72-21 14:58:34 Test Item Value Reference Range Interpretation Comments Creatinine (test code = 0.67 mg/dL 0.51-0.95 2160-0) NAHUN (test code = NAHUN) Schedule in Fast Track [facility] AllenPhosphorus Zassr3678-93-75 14:58:33 Test Item Value Reference Range Interpretation Comments Phosphorus (test code = 3.3 mg/dL 2.5-4.5 2777-1) NAHUN (test code = NAHUN) Schedule in Fast Track [facility] AllenCalcium Mpoit4079-89-57 14:58:32 Test Item Value Reference Range Interpretation Comments Calcium Lvl (test code 10.2 mg/dL 8.4-10.2 = 75464-4) NAHUN (test code = NAHUN) Schedule in Fast Track [facility] AllenAlanine Qjdtdovwuyseokcv2516-96-64 14:58:31 Test Item Value Reference Range Interpretation Comments ALT (test code 25 U/L See_Comment [Automated m essage] = 1742-6) The system [employer] generated this result transmitted ref erence range: <=33. Th e reference range was not used to int erpret this result as normal/abnormal . NAHUN (test code Schedule in Fast = NAHUN) Track [facility] AllenBUN2022-11-04 14:58:30 Test Item Value Reference Range Interpretation Comments BUN (test code = 3094-0) 14 mg/dL 6-23 [facility] AllenDifferential2022-11-04 14:21:19 Test Item Value Reference Range Interpretation Comments Neutrophil % (test 61.4 % 42.0-66.0 code = 770-8) Lymphocyte % (test 24.0 % 24.0-44.0 code = 736-9) Monocyte % (test code 10.6 % 2.0-7.0 H = 5905-5) Eosinophil % (test 3.0 % 1.0-4.0 code = 713-8) Basophil % (test code 0.7 % 0.0-1.0 = 706-2) IGRE % (test code = 0.3 % 0.0-0.4 IGRE % c ount 55168-3) includes Metamyelocytes, Myelocytes, and Promyelocytes. Neutrophil Abs (test 6.23 K/uL 1.70-7.30 code = 751-8) Lymphocyte Abs (test 2.44 K/uL 1.00-4.80 code = 731-0) Monocyte Abs (test 1.08 K/uL 0.08-0.70 H code = 742-7) Eosinophil Abs (test 0.30 K/uL 0.04-0.40 code = 711-2) Basophil Abs (test 0.07 K/uL 0.00-0.10 code = 704-7) IG Abs (test code = 0.03 K/uL 0.00-0.04 23111-3) NAHUN (test code = NAHUN) Schedule in Fast Track Lab Interpretation Abnormal (test code = 79312-6) [facility].FDQ5148-55-22 14:21:08 Test Item Value Reference Range Interpretation Comments WBC (test code = 10.2 K/uL 4.0-11.0 6690-2) RBC (test code = 6.02 See_Comment H [Automated 789-8) message] The sy stem which generated this result transmitted reference range : 4.00 - 5.50 M/u L. The reference r klaus was not used to interpret this result as normal/abnormal . Hgb (test code = 15.1 See_Comment [Automated 718-7) message] The sy stem which generated this result transmitted reference range : 12.0 - 16.0 gm/ dL. The reference r klaus was not used to interpret this result as normal/abnormal . Hct (test code = 47.0 % 37.0-47.0 4544-3) MCV (test code = 78 fL 82-98 L 787-2) MCH (test code = 25.1 pg 27.0-31.0 L 785-6) MCHC (test code = 32.1 See_Comment [Automate d 786-4) message] The sy stem which generated this result transmitted reference range : 31.0 - 36.0 gm/ dL. The reference r klaus was not used to interpret this result as normal/abnormal . RDW-SD (test code = 39.9 fL 35.1-46.3 27818-7) RDW-CV (test code = 14.5 % 12.0-15.5 788-0) Platelet count (test 280 K/uL 140-440 code = 777-3) MPV (test code = 10.6 fL 4.0-10.4 H 14639-3) INRBC (test code = 0.0 % See_Comment The INRBC 28254-5) (instrument NRB C) value reflects the enumerationof nucleated red b lood cells contained in a 200uL sampleo f whole blood analyzed by the instrument. Thi s value maydiffer from the NRBC v alue reported in a manual differential,wh ich is based on a 1 00 cell differenti al. [Automated mess age] The system whic h generated this result transmit nacho reference range : <=0.0. The reference range was not used to interpret this result as normal/abnormal . NAHUN (test code = NAHUN) Schedule in Fast Track Lab Interpretation Abnormal (test code = 80317-5) [facility] AllenIgM2022-08-05 16:31:04 Test Item Value Reference Range Interpretation Comments IgM (test code = 6023) 22 mg/dL 35-242 L Lab Interpretation (test code = Abnormal 94457-1) [facility] AllenIgG2022-08-05 16:31:03 Test Item Value Reference Range Interpretation Comments IgG (test code = 6001) 661 mg/dL 610-1616 [facility]IgA2022-08-05 16:31:02 Test Item Value Reference Range Interpretation Comments IgA (test code = 5992) 110 mg/dL 85-499 [facility] AllenMD t(9;22) BCR/ABL1 Quantitative PCR Collection, Gfklc2376-72-88 15:42:49 Test Item Value Reference Range Interpretation Comments Molecular Diagnostics (Received) (test Yes code = 8400) [facility] AllenAdaptive clonoSEQ-Send out, Bone Byheeo4204-62-51 19:38:53 Test Item Value Reference Range Interpretation Comments Adaptive Shipped Out Specimen for clonoSEQ (test clonoSEQ test ing was code = 14438) obtained, proc essed and sent out to the [facility].Refe r to separate [employer] for resu lts. Testing MRD-Tracking Indication (test code = 57915) NAHUN (test code = I acknowledge I NAHUN) have placed a corresponding order in [employer] [facility].->Yes [facility] AllenFlow Cytometry Specimen Collection -Bone Daxycd1092-77-85 13:59:41 Test Item Value Reference Range Interpretation Comments Flow Cytometry Yes Test performe d by:The (Received) (test code Bunny powers José Miguel PARRISH = 8319) [facility] CenterFlow Cyto metry [id number] [place] [address] Beaker Ap Link (test [id number] code = 86096) [facility] AllenMD NOTCH1 Exons 26, 27, 34 Collection, Ywxnqnvl3468-12-69 21:07:27 Test Item Value Reference Range Interpretation Comments Molecular Diagnostics (Received) (test Yes code = 8400) [facility] AllenMD TP53 Collection, Nonblood 2022-02-16 21:07:26 Test Item Value Reference Range Interpretation Comments Molecular Diagnostics (Received) (test Yes code = 8400) [facility] AllenMD t(9;22) BCR/ABL1 Quantitative PCR Collection, Kdibzgio5606-03-23 21:07:25 Test Item Value Reference Range Interpretation Comments Molecular Diagnostics (Received) (test Yes code = 8400) [facility] AllenFC MRD B ALL Collection, [facility] 2022-02-14 22:32:07 Test Item Value Reference Range Interpretation Comments Flow Cytometry (Received) (test code = Yes 8319) [facility] AllenMolecular Diagnostics Specimen Collection -Bone Wthfgb6231-54-30 22:07:43 Test Item Value Reference Range Interpretation Comments Molecular Diagnostics (Received) Yes (test code = 8400) Alexquinn Ap Link (test code = 40056) [id number] [facility] AllenCytogenetics Specimen Collection - Bone Jzatmk7385-88-78 21:24:16 Test Item Value Reference Range Interpretation Comments Nae Ap Link (test code = 86928) [id number] Cytogenetics (Received) (test code Yes = 8304) [facility] Chromosome Analysis Collection, [id number] 21:23:58 Test Item Value Reference Range Interpretation Comments Cytogenetics (Received) (test code = Yes 8304) [facility] BCR/ABL1 t(9;22) FISH Collection, Nefhyhqw5642-22-86 21:23:57 Test Item Value Reference Range Interpretation Comments Cytogenetics (Received) (test code = Yes 8304) [facility] AllenPeripheral Smear for Bone Marrow 2022-02-14 13:13:35 Test Item Value Reference Range Interpretation Comments Peripheral Smear (test code = 4273) PSMEAR [facility]
--- NOTE | 2022-10-15 12:25 | RAD REPORT ---
EXAM DESCRIPTION: US - Extremity Venous Uni Ltd - 10/15/2022 11:43 am CLINICAL HISTORY: Pain COMPARISON: None. TECHNIQUE: Real-time sonographic evaluation of the right lower extremity deep venous systems was per formed. FINDINGS: Normal compressibility, flow augmentation, phasic flow and spontaneous flow are identified in the right lower extremity common femoral, superficial femoral, popliteal and posterior tibial vei ns. No intraluminal filling defects seen. A 5 centimeter mildly complex popliteal fossa cyst is present. No cyst rupture or hemorrhage findings . A 5.5 centimeter complex hypoechoic collection is present anterior and superior to the right knee rich nt. Communication with the joint space is suspected and this may be a large supra patella bursa joint effusion. IMPRESSION: No DVT in the right lower extremity. 5 centimeter mildly complex popliteal fossa cyst. A 5.5 centimeter complex fluid collection anterior superior to the joint is suspected to be a large s upra patella bursa joint effusion. Complex 5.5 centimeter hypoechoic collection anterior and superior to the knee. The common etiology i s old hematoma if there is history of trauma. Abscess is possible if there is history of injury or wo und. A 5 centimeter popliteal fossa cyst is present.
--- NOTE | 2022-10-15 13:11 | RAD REPORT ---
EXAM DESCRIPTION: RAD - Knee Right 3 View - 10/15/2022 12:34 pm CLINICAL HISTORY: Right knee pain FINDINGS: No fracture is seen. Moderate lateral subluxation tibia on the femur. Marked osteoarthritis medial and patellofemoral compartments. Small to moderate joint effusion
--- NOTE | 2022-10-15 14:17 | ER ---
Nurse's Notes [facility] Name: Monica Fleming Age: 82 yrs Sex: Female : 1940 Arrival Date: 10/15/2022 Time: 10:49 Bed DIS2 Private MD: Diagnosis: Unspecified internal derangement of right knee;Synovial cyst of popliteal space [Gaitan], right knee Presentation: 10/15 11:02 Chief complaint: Patient states: Right knee pain that began new years day. Pt denies aa5 recent injury. Pt's daughter states "I think it's because she walked a long distance a few days ago she went from the parking lot at [facility] all the way up to floor 11". Coronavirus screen: At this time, the client does not indicate any symptoms associated with coronavirus-19. Ebola Screen: Patient denies travel to an Ebola-affected area in the 21 days before illness onset. Initial Sepsis Screen: Does the patient meet any 2 criteria? No. Patient's initial sepsis screen is negative. Does the patient have a suspected source of infection? No. Patient's initial sepsis screen is negative. Risk Assessment: Do you want to hurt yourself or someone else? Patient reports no desire to harm self or others. Onset of symptoms was October 2022. 11:02 Method Of Arrival: Wheelchair aa5 11:02 Acuity: KATHRINE 3 aa5 Triage Assessment: 11:05 General: Appears comfortable. Pain: Complains of pain in right knee. Neuro: Level of aa5 Consciousness is awake, alert, obeys commands, Oriented to person, place, time, situation. Respiratory: Airway is patent Respiratory effort is even, unlabored, Respiratory pattern is regular, symmetrical. Derm: Skin is pink, warm \\T\\ dry. Musculoskeletal: Swelling present in right knee. Historical: - Allergies: 11:04 No Known Allergies; aa5 - PMHx: 11:04 Hypertension; aa5 - Immunization history:: Adult Immunizations unknown. - Social history:: Smoking status: Patient denies any tobacco usage or history of. Assessment: 15:00 Reassessment: Patient is alert, oriented x 3, equal unlabored respirations, skin aa5 warm/dry/pink. 15:00 Reassessment: Knee immobilizer applied to right knee . aa5 Vital Signs: 11:02 BP 131 / 84; Pulse 103; Resp 18 S; Temp 97.7(TE); Pulse Ox 95% on R/A; aa5 ED Course: 10:49 Patient arrived in ED. aa5 11:01 Arm band placed on. aa5 11:04 Triage completed. aa5 11:07 Ramiro Bah PA is PHCP. jm 11:07 Brian Lares MD is Attending Physician. jmm 11:45 US Extremity Venous Unilateral Ltd In Process Unspecified. EDMS 12:36 Knee Right 3 View XRAY In Process Unspecified. EDMS 14:16 Dariusz Harrell MD is Referral Physician. jmm 15:00 No provider procedures requiring assistance completed. Patient did not have IV access aa5 during this emergency room visit. 15:04 Beto Ortiz MD is Referral Physician. jmm 15:04 Gerard Oden MD is Referral Physician. jm 15:04 Yonatan Prasad MD is Referral Physician. [facility] Administered Medications: 15:00 Drug: traMADol 50 mg Route: PO; aa5 15:00 Follow up: Response: Medication administered at discharge. aa5 Medication: 15:00 VIS not applicable for this client. aa5 Outcome: 14:16 Discharge ordered by . [facility] 15:00 Discharged to home via wheelchair, with family. aa5 15:00 Condition: stable 15:00 Discharge instructions given to patient, Instructed on discharge instructions, follow up and referral plans. medication usage, Demonstrated understanding of instructions, follow-up care, medications, Prescriptions given X 2. 15:08 Patient left the ED. aa5 Signatures: Dispatcher [employer] EDAR Ramiro Bah PA PA Melisa Gaston, RN RN aa5 Corrections: (The following items were deleted from the chart) 11:06 11:02 Acuity: KATHRINE 4 aa5 aa5
--- NOTE | 2022-10-15 14:17 | EDPHYS ---
Physician Documentation [facility] Name: Monica Fleming Age: 82 yrs Sex: Female : 1940 Arrival Date: 10/15/2022 Time: 10:49 Bed DIS2 Private MD: JENNY Physician Brian Lares HPI: 10/15 11:07 This 82 yrs old Female presents to ER via Wheelchair with complaints of Knee jmm Pain. 11:07 The patient presents with pain. Onset: The symptoms/episode began/occurred gradually, 2 jmm day(s) ago. Modifying factors: The symptoms are alleviated by nothing. the symptoms are aggravated by nothing. This is an 82-year-old female with history of hypertension the presents emerged department with complaints of right knee pain and swelling. Daughter states that the patient probably overexerted herself on New ' Day with a lot of walking around the hospital. Denies any known injury. Daughter states that the patient has had on and off complaints of the same knee for the past 2 years. Denies fever. Denies any injury to the knee itself. Historical: - Allergies: 11:04 No Known Allergies; aa5 - PMHx: 11:04 Hypertension; aa5 - Immunization history:: Adult Immunizations unknown. - Social history:: Smoking status: Patient denies any tobacco usage or history of. ROS: 11:07 Constitutional: Negative for fever, chills, and weight loss, Cardiovascular: Negative jmm for chest pain, palpitations, and edema, Respiratory: Negative for shortness of breath, cough, wheezing, and pleuritic chest pain. 11:07 MS/extremity: Positive for injury or acute deformity, pain. 11:07 All other systems are negative. Exam: 11:07 Constitutional: This is a well developed, well nourished patient who is awake, alert, jmm and in no acute distress. Head/Face: atraumatic. Eyes: EOMI, no conjunctival erythema appreciated ENT: Moist Mucus Membranes Neck: Trachea midline, Supple Chest/axilla: Normal chest wall appearance and motion. Cardiovascular: Regular rate and rhythm. No edema appreciated Respiratory: Normal respirations, no respiratory distress appreciated Abdomen/GI: Non distended Back: Normal ROM Skin: General appearance color normal 11:07 Musculoskeletal/extremity: Swelling appreciated to the right knee, full range of motion appreciated, compartments are soft, full results pedis pulse, neurovascular intact. 11:07 Skin: Appearance: Color: normal in color. 11:07 Neuro: Orientation: is normal, Mentation: is normal, Memory: is normal. 11:07 Psych: Behavior/mood is pleasant, cooperative. Vital Signs: 11:02 BP 131 / 84; Pulse 103; Resp 18 S; Temp 97.7(TE); Pulse Ox 95% on R/A; aa5 MDM: 12:10 Patient medically screened. [facility] 14:15 Data reviewed: vital signs, nurses notes. Counseling: I had a detailed discussion with jm the patient and/or guardian regarding: the historical points, exam findings, and any diagnostic results supporting the discharge/admit diagnosis, radiology results, the need for outpatient follow up, to return to the emergency department if symptoms worsen or persist or if there are any questions or concerns that arise at home. 15:12 ED course: Patient is alert nontoxic in appearance in the ED. Afebrile. I do not jmm current suspect septic joint. I did discuss the patient with Dr. Fragoso whom recommended a Medrol Dosepak for the patient. Will see the patient in clinic. Patient and family otherwise given strict return precautions, agree with plan of care. 10/15 11:06 Order name: Knee Right 3 View XRAY; Complete Time: 13:11 aa5 10/15 11:06 Order name: US Extremity Venous Unilateral Ltd; Complete Time: 12:26 aa5 10/15 13:30 Order name: Knee Immobilizer; Complete Time: 15:06 [facility] Administered Medications: 15:00 Drug: traMADol 50 mg Route: PO; aa5 15:00 Follow up: Response: Medication administered at discharge. aa5 Disposition Summary: 10/15/22 14:16 Discharge Ordered Location: Home [facility] Condition: Stable [facility] Diagnosis - Unspecified internal derangement of right knee jmm - Synovial cyst of popliteal space [Gaitan], right knee [facility] Followup: [facility] - With: Dariusz Harrell MD - When: 2 - 3 days - Reason: Recheck today's complaints, Continuance of care, Re-evaluation by your physician Followup: [facility] - With: Beto Ortiz MD - When: 2 - 3 days - Reason: Recheck today's complaints, Continuance of care, Re-evaluation by your physician Followup: [facility] - With: Gerard Oden MD - When: 2 - 3 days - Reason: Recheck today's complaints, Continuance of care, Re-evaluation by your physician Followup: [facility] - With: Yonatan Fragoso MD - When: 2 - 3 days - Reason: Recheck today's complaints, Continuance of care, Re-evaluation by your physician Discharge Instructions: - Discharge Summary Sheet [facility] - RICE Therapy for Routine Care of Injuries [facility] - Acute Knee Pain, Adult [facility] Forms: - Medication Reconciliation Form [facility] - Thank You Letter [facility] - Antibiotic Education [facility] - Prescription Opioid Use [facility] Prescriptions: - orphenadrine citrate 100 mg Oral Tablet Sustained Release - take 1 tablet by ORAL route 2 times per day As needed; 20 tablet; Refills: 0, [facility] Product Selection Permitted - Medrol ([place]) 4 mg Oral Tablets, Dose Pack - take 1 tablet by ORAL route as directed - follow package instructions; 1 [facility] packet; Refills: 0, Product Selection Permitted Signatures: Dispatcher [employer] Ramiro Crocker PA PA Melisa Hdz, RN RN aa5
[2022-10-15] MEDS ORDERED: TRAMADOL HCL 50 MG TAB ONE (15:04)
[2022-10-15 15:23] VITALS: BP 131/84; TEMP 97.7; O2SAT 95
== END 2022-10-15 15:08 | disposition home or self-care (01) ==
LOC: ER 10:44
DX: M23.91 Unspecified internal derangement of right knee (principal); M71.21 Synovial cyst of popliteal space [Baker], right knee
CPT/HCPCS: 93971; 99283

== ENCOUNTER 2022-12-26 11:37 | Emergency (ER) | payer OTHER ==
--- OUTSIDE RECORDS SUMMARY | 2022-12-26 11:43 | XMS REPORT | Clinical Summary ---
:1940 Author Organization [facility] MD [facility] Address [address] [place] [address] Care Team Providers Name Role Phone Osmel Burger MD Unavailable Shiraz Pritchard MD Primary Care Provider Allergies No known active allergies Medications Medication Sig Dispensed Refills Start Date End Date Status aspirin 81 mg chewable Chew 1 tablet 36 tablet 5 11/12/2019 Active tabletIndications: Acute (81 mg) daily. lymphoblastic leukemia, in remission Additional Information Patient not taking. Reported on 11/14/2022 amLODIPine (NORVASC) 5 mg TAKE 1 TABLET BY 30 tablet 3 021 Active tabletIndications: Acute MOUTH EVERY DAY. HOLD lymphoblastic leukemia, in FOR SYSTOLIC BLOOD remission PRESSUE LESS THAN 110 MMHG rosuvastatin (CRESTOR) 5 mg TAKE 1 TABLET(5 MG) 90 tablet 0 Active tabletIndications: Acute BY MOUTH AT BEDTIME lymphoid leukemia metFORMIN (GLUCOPHAGE) 1000 mg Take 1 tablet (1,000 0 Active tablet mg) by mouth daily with breakfast. metoprolol tartrate (LOPRESSOR) Take 1 tablet (37.5 0 05/27/2022 Active 37.5 mg tab tablet mg) by mouth twice daily. cefPODoxime (VANTIN) 200 mg Take 1 tablet (200 14 tablet 0 Active tabletIndications: Urinary tract mg) by mouth twice infection, not otherwise daily. specified Additional Information Patient not taking. Reported on 11/14/2022 INV-() Take 1 90 tablet 0 11/14/2022 05/13/2023 Ac tive PONATinib 15 mg tablet (15 tabletIndications: mg) by mouth Acute lymphoblastic every other leukemia, in remission day for 180 days. metoprolol tartrate Take 1 0 11/11/2019 2 Discontinued (LOPRESSOR) 25 mg tablet (25 ( Dose tabletIndications: mg) by mouth adjustment) hypertension twice daily. Hold for systolic blood pressure less than 110 mmHg or heart rate less than 55 beats per minute. metoprolol tartrate Take 25 mg 0 09/20/2020 02/15/20 22 Discontinued 37.5 mg tab by mouth (Not Kena licable) twice daily. LORazepam (Ativan) 0.5 Take 1 1 tablet 0 02/18/20212022 Discontinued mg tablet tablet (0.5 (Stop Ta judit at mg) by mouth Dischar ge) daily. omeprazole (PriLOSEC) Take 20 mg 0 022 Discontinued 20 mg capsule by mouth (Not A pplicable) every morning before breakfast. LORazepam (Ativan) 0.5 Take 1 1 tablet 0 08/16/20212022 Discontinued mg tabletIndications: tablet (0.5 (Reorder) Acute lymphoid leukemia mg) by mouth once for 1 dose. Take prior to bone marrow biopsy rosuvastatin (Crestor) Take 1 90 tablet 0 11/15/20212021 Discontinued 5 mg tabletIndications: tablet (5 Acute lymphoid leukemia mg) by mouth at bedtime. INV-() Take 1 90 tablet 0 11/15/2021 02/13/2022 Ex pired PONATinib 15 mg tablet (15 tabletIndications: mg) by mouth Acute lymphoblastic daily for 90 leukemia, in remission days. alendronate (FOSAMAX) Take 1 0 12/05/2021 023 Discontinued 70 mg tablet tablet by (Stop T aking at mouth once a Dischar ge) week. amLODIPine (NORVASC) 10 Take 1 0 11/26/202108/15 Discontinued mg tablet tablet by (Dose mouth daily. adjustm ent) INV-() Take 1 90 tablet 0 02/14/2022 05/15/2022 Ex pired PONATinib 15 mg tablet (15 tabletIndications: mg) by mouth Acute lymphoblastic daily for 90 leukemia, in remission days. INV-() Take 1 90 tablet 0 05/16/2022 08/14/2022 Ex pired PONATinib 15 mg tablet (15 tabletIndications: mg) by mouth Acute lymphoblastic daily for 90 leukemia, in remission days. INV-() Take 1 90 tablet 0 08/15/2022 11/13/2022 Ex pired PONATinib 15 mg tablet (15 tabletIndications: mg) by mouth Acute lymphoblastic daily for 90 leukemia, in remission days. ciprofloxacin HCl Take 1 10 tablet 0 11/01/2022 11/06/2022 (CIPRO) 500 mg tablet (500 tabletIndications: mg) by mouth Urinary tract every 12 infection, not (twelve) otherwise specified hours for 5 days. LORazepam (Ativan) 0.5 Take 1 1 tablet 0 11/14/20222022 mg tabletIndications: tablet (0.5 Acute lymphoid leukemia mg) by mouth once for 1 dose. Take prior to bone marrow biopsy Active Problems Patient Care Coordination Note Formatting of this note might be differe nt from the original. 01/27/20: Pt needs to have caregiver with her during all appointments as she needs bone marrow procedure with versed and has multiple other appointments the same day (labs, visit with francoise Arzola p uncture, and ATC appointment to start bl inatumomab therapy) Patient is mainly Indonesian speaking only and also needs wheelchair. 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 Patient immunocompromised 10/30/2019 Anemia due to antineoplastic chemotherapy 10/30/2019 Other secondary thrombocytopenia 10/30/2019 Essential (primary) hypertension 10/30/2019 Encounters Date Type Specialty Care Team Description 11/19/2022 Orders Only Leukemia Adele Lutz PA 11/18/2022 Orders Only Leukemia Marysol Allen PA 11/14/2022 Hospital Encounter Bone Marrow Short, Acute lym phoblastic MD Shiraz leukemia, in remission Gurwinder Lynn (Primary Dx) C, PA 11/14/2022 Follow-Up Leukemia Short, Acute lymphobla stic leukemia, in remission (Primary Dx); MD Shiraz Patient immunoc ompromised; Anemia due to a ntineoplastic chemotherapy; Essential (prim winnie) hypertension 11/14/2022 Hospital Encounter Lab Short, Acute lym phoblastic MD Shiraz leukemia, in [place] 11/14/2022 Documentation Leukemia Jenna Esteban, RN 11/14/2022 Orders Only Leukemia Short, Acute lymphobla stic MD Shiraz leukemia, in re [place] (Primary Dx) 11/14/2022 Orders Only Leukemia Jenna Esteban, Acute lymphob lastic RN leukemia, in re [place] (Primary Dx) 11/14/2022 Refill Leukemia Alejandro, Marysol Acute lympho id leukemia N, PA 11/14/2022 Orders Only Leukemia Mariaa Gonzalez, PharmD 11/14/2022 Travel 11/01/2022 Orders Only Leukemia Short, Urinary tract MD Shiraz infection, not otherwise speci fied (Primary Dx) 10/29/2022 Hospital Encounter Leukemia Rayshawn, Acute lym phoblastic leukemia, in remission (Primary Dx); - MD Rupal Pancreatitis; 10/31/2022 Short, Abdominal pain; MD Shiraz Nausea and vomi ting; Urinary tract i nfection, not otherwise specified 10/29/2022 Travel 2022 Orders Only Leukemia Alejandro, Marysol N, PA 08/18/2022 Orders Only Leukemia [place], Acute lymphobla stic Mario M II, leukemia, in r emission RN (Primary Dx) 08/15/2022 Office Visit Leukemia Short, Acute lymphobla stic leukemia (Primary Dx); MD Shiraz Acute lymphobla stic leukemia, in remission; Essential (prim winnie) hypertension; Anemia due to a ntineoplastic chemotherapy; Patient immunoc ompromised 08/15/2022 Hospital Encounter Lab Short, Acute lym phoblastic MD Shiraz leukemia, in [place] 08/15/2022 Documentation Leukemia [place]umpa, Mario M II, RN 08/15/2022 Orders Only Leukemia Short, Acute lymphobla stic MD Shiraz leukemia, in [place] (Primary Dx) 08/15/2022 Orders Only Leukemia Mariaa Gonzalez, PharmD 08/15/2022 Travel 05/29/2022 Orders Only Leukemia Alejandro, Marysol N, PA 05/21/2022 Orders Only Leukemia [place], Acute lymphobla stic Mario M II, leukemia, in r emission RN (Primary Dx) 05/16/2022 Office Visit Leukemia Short, Acute lymphobla stic leukemia, in remission (Primary Dx); MD Shiraz Acute lymphobla stic leukemia; Patient immunoc ompromised; Anemia due to a ntineoplastic chemotherapy; Essential (prim winnie) hypertension 05/16/2022 Hospital Encounter Lab Rosales, Abiola Acute l ymphoblastic C, ROTO GRAVURE PRESS OPERATOR leukemia 05/16/2022 Documentation Leukemia [place], Mario M II, RN 05/16/2022 Orders Only Leukemia Short, Acute lymphobla stic MD Shiraz leukemia, [place] (Primary Dx) 05/16/2022 Orders Only Leukemia Anthony Selena Drew, PharmD 05/16/2022 Orders Only Leukemia [place], Mario M II, RN 05/16/2022 Travel 05/09/2022 Orders Only Leukemia Palomo Jay Charles, [facility] 05/09/2022 Orders Only Leukemia [place], Acute lymphobla stic Mario M II, leukemia, in r emission RN (Primary Dx) 02/24/2022 Orders Only Leukemia Alejandro, Marysol N, PA 02/20/2022 Orders Only Leukemia Rosales, Abiola C, ROTO GRAVURE PRESS OPERATOR 02/18/2022 Refill Leukemia Alejandro, Marysol Acute lympho id leukemia N, PA 02/18/2022 Orders Only Leukemia Rosales, Abiola C, ROTO GRAVURE PRESS OPERATOR 02/14/2022 Hospital Encounter Bone Marrow Short, Acute lym phoblastic leukemia, in remission; MD Shiraz Caldwell chromosome-positive acute l ymphoblastic leukemia Greta Day, PA 02/14/2022 Office Visit Leukemia Short, Caldwell ch romosome-positive acute lymphoblastic leukemia (Primary Dx); MD Shiraz Acute lymphobla stic leukemia; Acute lymphobla stic leukemia, in remission; Patient immunoc ompromised; Anemia due to a ntineoplastic chemotherapy; Essential (prim winnie) hypertension 02/14/2022 Hospital Encounter Lab Short, Acute lym phoblastic MD Shiraz leukemia, [place] 02/14/2022 Orders Only Leukemia [place], Acute lymphobla sheryl Wren II, leukemia, in r emission RN (Primary Dx) 02/14/2022 Orders Only Bone Marrow Greta Day PA 02/14/2022 Orders Only Leukemia Short, Acute lymphobla sheryl Weldon MD leukemia, in [place] (Primary Dx) 02/14/2022 Travel 02/07/2022 Telephone Stem Cell Rosa Elena Costa I child day care provider after 12/26/2021 Immunizations Name Administration Dates Next Due Pfizer SARS-CoV-2 Vaccination (Purple Cap) 11/24/2020, 10/13 Surgical History Surgery Date Site/Laterality Comments KNEE ARTHROPLASTY 10/12/2012 - 10/11/2013 left VEIN SURGERY varicose LIPOMA RESECTION on back Medical History Medical History Date Comments Hypertension 2006 Osteoporosis 1994 Caldwell chromosome-positive acute lymphoblastic leukemi a Diabetes mellitus [...] Sign Reading Time Taken Comments Blood Pressure 127/85 11/14/2022 11:57 AM MINER ASSISTANT Pulse 130 11/14/2022 11:57 AM MINER ASSISTANT Temperature 36.5 C (97.7 F) 11/14/2022 9:19 AM MINER ASSISTANT Respiratory Rate 17 11/14/2022 9:19 AM MINER ASSISTANT Oxygen Saturation 95% 11/14/2022 9:19 AM MINER ASSISTANT Inhaled Oxygen Concentration - - Weight 66.9 kg (147 lb 7.8 oz) 11/14/2022 9:19 AM MINER ASSISTANT Height 152 cm (4' 11.84") 10/29/2022 6:22 PM MINER ASSISTANT Body Mass Index 28.96 10/29/2022 6:22 PM MINER ASSISTANT Plan of Treatment Date Type Specialty Care Team Description 04/30/2023 Appointment Lab Shiraz Pritchard [place] [address] [place] [place] [address] (Wo [place]) 04/30/2023 Follow-Up Leukemia Shiraz Pritchard [place] [address] [place] [address] (Wo [place]) Health Maintenance Due Date Last Done Comments COVID-19 Vaccination (3 - Pfizer risk 12/22/2020 11/24/2020 , 11/03/2020 series) Medical Devices Implanted Type Area Roundhouse Supervisor Device Identifier Shelf Exp iration Model / Date Serial / L ot Knee Implant Knee Description: Left Knee Procedures Procedure Name Priority Date/Time Associated Diagnosis Comme nts HP FC MRD B ALL Routine 11/14/2022 12:07 INTERPRETATION AND PM MINER ASSISTANT REPORT HP CG BCR/ABL1 T(9;22) Routine 11/14/2022 12:07 FISH INTERPRETATION AND PM MINER ASSISTANT REPORT HP CYTOGENETICS BLOOD Routine 11/14/2022 12:07 Re sults for this COLLECTION PM MINER ASSISTANT procedure are i n the results section. HP FC FLOW CYTOMETRY Routine 11/14/2022 12:07 Res ults for this BLOOD COLLECTION PM MINER ASSISTANT procedure a re in the results section. ADAPTIVE CLONOSEQ-SEND Routine 11/14/2022 12:07 Acute lymphobl astic Results for this OUT, BONE MARROW PM MINER ASSISTANT leukemia, in procedure a re in remission the results section. HP CG BCR/ABL1 T(9;22) Routine 11/14/2022 12:07 Acute lymphobl astic Results for this FISH COLLECTION, PM MINER ASSISTANT leukemia, in procedure a re in NONBLOOD remission the results section. NM DIAGNOSTIC BONE Routine 11/14/2022 12:03 Acute lymphoblasti c Results for this MARROW ASPIRATIONS PM MINER ASSISTANT leukemia, in procedure are in remission the results section. HEMATOPATHOLOGY BONE Routine 11/14/2022 11:50 Acute lymphoblas tic Results for this MARROW DIFFERENTIAL AM MINER ASSISTANT leukemia, in procedur e are in remission the results section. HEMATOPATHOLOGY BONE Routine 11/14/2022 11:50 Acute lymphoblas tic Results for this MARROW INTERPRETATION AM MINER ASSISTANT leukemia, in proced ure are in remission the results section. CLOT EXPIRATION DATE Routine 11/14/2022 7:59 Resu lts for this AM MINER ASSISTANT procedure are i n the results section. TMP INTERPRETATION Routine 11/14/2022 7:59 Result s for this ANTIBODY SCREEN NEGATIVE AM MINER ASSISTANT pro cedure are in the results section. HP T(9;22) BCR/ABL1 Routine 11/14/2022 7:59 QUANTITATIVE PCR AM MINER ASSISTANT INTERPRETATION AND REPORT ANTIBODY SCREEN Routine 11/14/2022 7:59 Acute lymphoblastic Re sults for this AM MINER ASSISTANT leukemia, in procedure are i n remission the results section. ABORH Routine 11/14/2022 7:59 Acute lymphoblastic Resul ts for this AM MINER ASSISTANT leukemia, in procedure are i n remission the results section. .GLOMERULAR FILTRATION Routine 11/14/2022 7:59 Acute lymphobla stic Results for this RATE AM MINER ASSISTANT leukemia, in procedure are i n remission the results section. SERUM CREATININE Routine 11/14/2022 7:59 Acute lymphoblastic R esults for this AM MINER ASSISTANT leukemia, in procedure are i n remission the results section. MANUAL DIFFERENTIAL Routine 11/14/2022 7:59 Acute lymphoblasti c Results for this AM MINER ASSISTANT leukemia, in procedure are i n remission the results section. Results CBC Routine 11/14/2022 7:59 Acute lymphoblastic Resul ts for this AM MINER ASSISTANT leukemia, in procedure are i n remission the results section. TRIGLYCERIDES Routine 11/14/2022 7:59 Acute lymphoblastic Resu lts for this AM MINER ASSISTANT leukemia, in procedure are i n remission the results section. LIPASE LEVEL Routine 11/14/2022 7:59 Acute lymphoblastic Resul ts for this AM MINER ASSISTANT leukemia, in procedure are i n remission the results section. TRYPTASE TOTAL Routine 11/14/2022 7:59 Acute lymphoblastic Res ults for this AM MINER ASSISTANT leukemia, in procedure are i n remission the results section. AMYLASE LEVEL Routine 11/14/2022 7:59 Acute lymphoblastic Resu lts for this AM MINER ASSISTANT leukemia, in procedure are i n remission the results section. COMPLETE BLOOD COUNT W/ Routine 11/14/2022 7:59 Acute lymphobl astic DIFFERENTIAL AM MINER ASSISTANT leukemia, in remission TYPE AND SCREEN Routine 11/14/2022 7:59 Acute lymphoblastic AM MINER ASSISTANT leukemia, in remission IMMUNOGLOBULIN G SERUM Routine 11/14/2022 7:59 Acute lymphobla stic Results for this AM MINER ASSISTANT leukemia, in procedure are i n remission the results section. IMMUNOGLOBULIN M SERUM Routine 11/14/2022 7:59 Acute lymphobla stic Results for this AM MINER ASSISTANT leukemia, in procedure are i n remission the results section. IMMUNOGLOBULIN A SERUM Routine 11/14/2022 7:59 Acute lymphobla stic Results for this AM MINER ASSISTANT leukemia, in procedure are i n remission the results section. MAGNESIUM LEVEL Routine 11/14/2022 7:59 Acute lymphoblastic Re sults for this AM MINER ASSISTANT leukemia, in procedure are i n remission the results section. ELECTROLYTE PANEL Routine 11/14/2022 7:59 Acute lymphoblastic Results for this AM MINER ASSISTANT leukemia, in procedure are i n remission the results section. ALANINE AMINOTRANSFERASE Routine 11/14/2022 7:59 Acute lymphob lastic Results for this AM MINER ASSISTANT leukemia, in procedure are i n remission the results section. LACTATE DEHYDROGENASE Routine 11/14/2022 7:59 Acute lymphoblas tic Results for this AM MINER ASSISTANT leukemia, in procedure are i n remission the results section. ALKALINE PHOSPHATASE Routine 11/14/2022 7:59 Acute lymphoblast ic Results for this AM MINER ASSISTANT leukemia, in procedure are i n remission the results section. FRACTIONATED BILIRUBIN Routine 11/14/2022 7:59 Acute lymphobla stic Results for this AM MINER ASSISTANT leukemia, in procedure are i n remission the results section. URIC ACID Routine 11/14/2022 7:59 Acute lymphoblastic Resul ts for this AM MINER ASSISTANT leukemia, in procedure are i n remission the results section. SERUM CREATININE Routine 11/14/2022 7:59 Acute lymphoblastic AM MINER ASSISTANT leukemia, in remission BLOOD UREA NITROGEN Routine 11/14/2022 7:59 Acute lymphoblasti c Results for this AM MINER ASSISTANT leukemia, in procedure are i n remission the results section. GLUCOSE, RANDOM Routine 11/14/2022 7:59 Acute lymphoblastic Re sults for this AM MINER ASSISTANT leukemia, in procedure are i n remission the results section. PHOSPHORUS LEVEL Routine 11/14/2022 7:59 Acute lymphoblastic R esults for this AM MINER ASSISTANT leukemia, in procedure are i n remission the results section. CALCIUM LEVEL TOTAL Routine 11/14/2022 7:59 Acute lymphoblasti c Results for this AM MINER ASSISTANT leukemia, in procedure are i n remission the results section. ALBUMIN LEVEL Routine 11/14/2022 7:59 Acute lymphoblastic Resu lts for this AM MINER ASSISTANT leukemia, in procedure are i n remission the results section. TOTAL PROTEIN Routine 11/14/2022 7:59 Acute lymphoblastic Resu lts for this AM MINER ASSISTANT leukemia, in procedure are i n remission the results section. PERIPHERAL SMEAR FOR Routine 11/14/2022 7:59 Acute lymphoblast ic Results for this BONE MARROW AM MINER ASSISTANT leukemia, in procedure are i n remission the results section. ANION GAP AM 10/31/2022 1:57 Results for this AM MINER ASSISTANT procedure are i n the results section. .GLOMERULAR FILTRATION AM 10/31/2022 1:57 Re sults for this RATE AM MINER ASSISTANT procedure are i n the results section. SERUM CREATININE AM 10/31/2022 1:57 Results for this AM MINER ASSISTANT procedure are i n the results section. MANUAL DIFFERENTIAL AM 10/31/2022 1:57 Resul ts for this AM MINER ASSISTANT procedure are i n the results section. Results CBC AM 10/31/2022 1:57 Results for this AM MINER ASSISTANT procedure are i n the results section. URIC ACID AM 10/31/2022 1:57 Results for this AM MINER ASSISTANT procedure are i n the results section. ASPARTATE AM 10/31/2022 1:57 Results for this AMINOTRANSFERASE AM MINER ASSISTANT procedure a re in the results section. ALANINE AMINOTRANSFERASE AM 10/31/2022 1:57 Results for this AM MINER ASSISTANT procedure are i n the results section. ALKALINE PHOSPHATASE AM 10/31/2022 1:57 Resu lts for this AM MINER ASSISTANT procedure are i n the results section. FRACTIONATED BILIRUBIN AM 10/31/2022 1:57 Re sults for this AM MINER ASSISTANT procedure are i n the results section. PHOSPHORUS LEVEL AM 10/31/2022 1:57 Results for this AM MINER ASSISTANT procedure are i n the results section. ALBUMIN LEVEL AM 10/31/2022 1:57 Results for this AM MINER ASSISTANT procedure are i n the results section. TOTAL PROTEIN AM 10/31/2022 1:57 Results for this AM MINER ASSISTANT procedure are i n the results section. CARBON DIOXIDE LEVEL AM 10/31/2022 1:57 Resu lts for this AM MINER ASSISTANT procedure are i n the results section. CHLORIDE LEVEL AM 10/31/2022 1:57 Results fo r this AM MINER ASSISTANT procedure are i n the results section. MAGNESIUM LEVEL AM 10/31/2022 1:57 Results f or this AM MINER ASSISTANT procedure are i n the results section. POTASSIUM LEVEL AM 10/31/2022 1:57 Results f or this AM MINER ASSISTANT procedure are i n the results section. SODIUM LEVEL AM 10/31/2022 1:57 Results for this AM MINER ASSISTANT procedure are i n the results section. SERUM CREATININE AM 10/31/2022 1:57 AM MINER ASSISTANT BLOOD UREA NITROGEN AM 10/31/2022 1:57 Resul ts for this AM MINER ASSISTANT procedure are i n the results section. CALCIUM LEVEL TOTAL AM 10/31/2022 1:57 Resul ts for this AM MINER ASSISTANT procedure are i n the results section. GLUCOSE, RANDOM AM 10/31/2022 1:57 Results f or this AM MINER ASSISTANT procedure are i n the results section. COMPLETE BLOOD COUNT W/ AM 10/31/2022 1:57 DIFFERENTIAL AM MINER ASSISTANT LIPASE LEVEL Routine 10/30/2022 12:43 Results for this PM MINER ASSISTANT procedure are i n the results section. AMYLASE LEVEL Routine 10/30/2022 12:43 Results fo r this PM MINER ASSISTANT procedure are i n the results section. TMP INTERPRETATION Routine 10/30/2022 2:39 Result s for this ANTIBODY SCREEN NEGATIVE AM MINER ASSISTANT pro cedure are in the results section. CLOT EXPIRATION DATE Routine 10/30/2022 2:39 Resu lts for this AM MINER ASSISTANT procedure are i n the results section. ANION GAP AM 10/30/2022 2:39 Results for this AM MINER ASSISTANT procedure are i n the results section. ANTIBODY SCREEN Routine 10/30/2022 2:39 Results f or this AM MINER ASSISTANT procedure are i n the results section. ABORH Routine 10/30/2022 2:39 Results for this AM MINER ASSISTANT procedure are i n the results section. .GLOMERULAR FILTRATION AM 10/30/2022 2:39 Re sults for this RATE AM MINER ASSISTANT procedure are i n the results section. SERUM CREATININE AM 10/30/2022 2:39 Results for this AM MINER ASSISTANT procedure are i n the results section. MANUAL DIFFERENTIAL AM 10/30/2022 2:39 Resul ts for this AM MINER ASSISTANT procedure are i n the results section. Results CBC AM 10/30/2022 2:39 Results for this AM MINER ASSISTANT procedure are i n the results section. TYPE AND SCREEN Routine 10/30/2022 2:39 AM MINER ASSISTANT FIBRINOGEN ACTIVITY Routine 10/30/2022 2:39 Resul ts for this AM MINER ASSISTANT procedure are i n the results section. D DIMER Routine 10/30/2022 2:39 Results for this AM MINER ASSISTANT procedure are i n the results section. APTT Routine 10/30/2022 2:39 Results for this AM MINER ASSISTANT procedure are i n the results section. PROTHROMBIN TIME Routine 10/30/2022 2:39 Results for this AM MINER ASSISTANT procedure are i n the results section. URIC ACID AM 10/30/2022 2:39 Results for this AM MINER ASSISTANT procedure are i n the results section. ASPARTATE AM 10/30/2022 2:39 Results for this AMINOTRANSFERASE AM MINER ASSISTANT procedure a re in the results section. ALANINE AMINOTRANSFERASE AM 10/30/2022 2:39 Results for this AM MINER ASSISTANT procedure are i n the results section. ALKALINE PHOSPHATASE AM 10/30/2022 2:39 Resu lts for this AM MINER ASSISTANT procedure are i n the results section. FRACTIONATED BILIRUBIN AM 10/30/2022 2:39 Re sults for this AM MINER ASSISTANT procedure are i n the results section. PHOSPHORUS LEVEL AM 10/30/2022 2:39 Results for this AM MINER ASSISTANT procedure are i n the results section. ALBUMIN LEVEL AM 10/30/2022 2:39 Results for this AM MINER ASSISTANT procedure are i n the results section. TOTAL PROTEIN AM 10/30/2022 2:39 Results for this AM MINER ASSISTANT procedure are i n the results section. CARBON DIOXIDE LEVEL AM 10/30/2022 2:39 Resu lts for this AM MINER ASSISTANT procedure are i n the results section. CHLORIDE LEVEL AM 10/30/2022 2:39 Results fo r this AM MINER ASSISTANT procedure are i n the results section. MAGNESIUM LEVEL AM 10/30/2022 2:39 Results f or this AM MINER ASSISTANT procedure are i n the results section. POTASSIUM LEVEL AM 10/30/2022 2:39 Results f or this AM MINER ASSISTANT procedure are i n the results section. SODIUM LEVEL AM 10/30/2022 2:39 Results for this AM MINER ASSISTANT procedure are i n the results section. SERUM CREATININE AM 10/30/2022 2:39 AM MINER ASSISTANT BLOOD UREA NITROGEN AM 10/30/2022 2:39 Resul ts for this AM MINER ASSISTANT procedure are i n the results section. CALCIUM LEVEL TOTAL AM 10/30/2022 2:39 Resul ts for this AM MINER ASSISTANT procedure are i n the results section. GLUCOSE, RANDOM AM 10/30/2022 2:39 Results f or this AM MINER ASSISTANT procedure are i n the results section. COMPLETE BLOOD COUNT W/ AM 10/30/2022 2:39 DIFFERENTIAL AM MINER ASSISTANT VRE CULTURE Routine 10/29/2022 8:55 Results for this PM MINER ASSISTANT procedure are i n the results section. COVID-19 (SARS-COV-2) Routine 10/29/2022 4:26 Res ults for this ASYMPTOMATIC-LT PM MINER ASSISTANT procedure ar e in the results section. URINALYSIS MICROSCOPIC Routine 10/29/2022 12:12 R esults for this EXAM PM MINER ASSISTANT procedure are i n the results section. URINALYSIS WITH Routine 10/29/2022 12:12 Results for this MICROSCOPIC IF INDICATED PM MINER ASSISTANT pro cedure are in the results section. URINE CULTURE Routine 10/29/2022 12:12 Results fo r this PM MINER ASSISTANT procedure are i n the results section. CT ABDOMEN PELVIS W STAT 10/29/2022 12:00 Resu lts for this CONTRAST PM MINER ASSISTANT procedure are i n the results section. FRACTIONATED BILIRUBIN Routine 10/29/2022 9:57 Re sults for this AM MINER ASSISTANT procedure are i n the results section. TOTAL PROTEIN Routine 10/29/2022 9:57 Results for this AM MINER ASSISTANT procedure are i n the results section. ASPARTATE Routine 10/29/2022 9:57 Results for this AMINOTRANSFERASE AM MINER ASSISTANT procedure a re in the results section. ALANINE AMINOTRANSFERASE Routine 10/29/2022 9:57 Results for this AM MINER ASSISTANT procedure are i n the results section. ALKALINE PHOSPHATASE Routine 10/29/2022 9:57 Resu lts for this AM MINER ASSISTANT procedure are i n the results section. ALBUMIN LEVEL Routine 10/29/2022 9:57 Results for this AM MINER ASSISTANT procedure are i n the results section. CALCIUM LEVEL TOTAL Routine 10/29/2022 9:57 Resul ts for this AM MINER ASSISTANT procedure are i n the results section. .GLOMERULAR FILTRATION Routine 10/29/2022 9:57 Re sults for this RATE AM MINER ASSISTANT procedure are i n the results section. SERUM CREATININE Routine 10/29/2022 9:57 Results for this AM MINER ASSISTANT procedure are i n the results section. ELECTROLYTE PANEL Routine 10/29/2022 9:57 Results for this AM MINER ASSISTANT procedure are i n the results section. BLOOD UREA NITROGEN Routine 10/29/2022 9:57 Resul ts for this AM MINER ASSISTANT procedure are i n the results section. GLUCOSE LEVEL Routine 10/29/2022 9:57 Results for this AM MINER ASSISTANT procedure are i n the results section. MANUAL DIFFERENTIAL STAT 10/29/2022 9:57 Resul ts for this AM MINER ASSISTANT procedure are i n the results section. Results CBC STAT 10/29/2022 9:57 Results for this AM MINER ASSISTANT procedure are i n the results section. LIPASE LEVEL Routine 10/29/2022 9:57 Results for this AM MINER ASSISTANT procedure are i n the results section. AMYLASE LEVEL Routine 10/29/2022 9:57 Results for this AM MINER ASSISTANT procedure are i n the results section. LACTATE DEHYDROGENASE Routine 10/29/2022 9:57 Res ults for this AM MINER ASSISTANT procedure are i n the results section. PHOSPHORUS LEVEL Routine 10/29/2022 9:57 Results for this AM MINER ASSISTANT procedure are i n the results section. MAGNESIUM LEVEL Routine 10/29/2022 9:57 Results f or this AM MINER ASSISTANT procedure are i n the results section. COMPREHENSIVE METABOLIC Routine 10/29/2022 9:57 PANEL AM MINER ASSISTANT COMPLETE BLOOD COUNT W/ Routine 10/29/2022 9:57 DIFFERENTIAL AM MINER ASSISTANT TMP INTERPRETATION Routine 08/15/2022 8:48 Result s [...] section. ABORH Routine 08/15/2022 8:48 Acute lymphoblastic Resu lts [...] s section. 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 HEMATOPATHOLOGY BONE Routine 02/14/2022 2:38 [place] Resu lts for this MARROW INTERPRETATION PM CDT chromosome-positive procedure are in acute lymphoblastic the resu lts leukemia section. HP FC MRD B ALL Routine 02/14/2022 2:36 INTERPRETATION AND PM CDT REPORT HP T(9;22) BCR/ABL1 Routine 02/14/2022 2:36 QUANTITATIVE PCR [...] results section. ADAPTIVE CLONOSEQ-SEND Routine 02/14/2022 2:36 [place] Re sults for this OUT, BONE MARROW [...] re are in remission the results section. NM DIAGNOSTIC BONE Routine 02/14/2022 2:22 Acute lymphoblastic [...] are i n remission the results section. after 12/26/2021 Results Adaptive clonoSEQ-Send out, Bone Marrow (11/14/2022 12:07 PM MINER ASSISTANT)Only the most recent of2 resultswithin the time period is included. [facility] gist Method Time Signature Adaptive Shipped Out [place] MD Saez [facility] [place] Comment: Specimen for clonoSEQ testing was obtain ed, processed and sent out to the [facility]. Refer to separate [facility] es Portal for results. Testing Indication MRD-Tracking [place] MD [facility] Specimen Anatomical Collection Method Collection Time Receive d Time (Source) Location / / Volume Laterality Bone Marrow 11/14/2022 12:07 11/14/2022 9:25 PM MINER ASSISTANT PM MINER ASSISTANT Shiraz Pritchard MD LAB BLOOD ORDERABLES Performing Organization Address City/State/ZIP Code Phon e Number [place] MD [facility] Unless otherwise noted, [place] [address] [place] all lab tests performed by: Division of Pathology and Laboratory Medicine [facility] Deejayraysa Sanders BCR/ABL1 t(9;22) FISH Collection, Nonblood (11/14/2022 12:07 PM MINER ASSISTANT)Only the most recent of2 resultswithin the time period is included. P athologist Signature Cytogenetics Yes [place] (Received) [facility] Specimen Anatomical Collection Method Collection Time Receive d Time (Source) Location / / Volume Laterality Bone Marrow 11/14/2022 12:07 11/14/2022 1:22 PM MINER ASSISTANT PM MINER ASSISTANT Shiraz Pritchard MD, MDA HP CG NONBLOOD COLLECTIO NS Performing Organization Address City/[facility]/ZIP Code Phon e Number [facility] Unless otherwise noted, [address] all lab tests performed by: Division of Pathology and Laboratory Medicine [address] [place] [address] BCR/ABL1 t(9;22) FISH Interpretation and Report (11/14/2022 12:07 PM MINER ASSISTANT)Only the most recent of2 resultswithin the time period is included. Specimen (Source) Anatomical Collection Method Collection Time Re ceived Time Location / / Volume Laterality 11/14/2022 12:07 PM MINER ASSISTANT Narrative This result has an attachment that is no t available. Shiraz Pritchard MD, MDA HP CYTOGENETICS (HP CG) Cytogenetics Specimen Collection -Bone Marrow (11/14/2022 12:07 PM MINER ASSISTANT)Only the most recent of2 resultswithin the time period is included. Patholo gist Method Time Signature Nae Ap Link [id number] Cytogenetics Yes [place] (Received) [facility] Specimen Anatomical Collection Method Collection Time Receive d Time (Source) Location / / Volume Laterality Bone Marrow 11/14/2022 12:07 11/14/2022 1:22 PM MINER ASSISTANT PM MINER ASSISTANT Shiraz Pritchard MD, MDA HP CG NONBLOOD COLLECTIO NS Performing Organization Address City/State/ZIP Code Phon e Number [facility]CER Unless otherwise noted, [address] all lab tests performed by: Division of Pathology and Laboratory Medicine [address] [place] [address] MRD B ALL Interpretation and Report (11/14/2022 12:07 PM MINER ASSISTANT)Only the most recent of2 resultswithin the time period is included. Specimen Anatomical Collection Method Collection Time Receive d Time (Source) Location / / Volume Laterality 11/14/2022 12:07 11/14/2022 PM MINER ASSISTANT 12:57 PM MINER ASSISTANT Narrative This result has an attachment that is no t available. Shiraz Pritchard MD, MDA HP FLOW CYTOMETRY (HP FC ) Flow Cytometry Specimen Collection -Bone Marrow (11/14/2022 12:07 PM MINER ASSISTANT)Only the most recent of2 resultswithin the time period is included. P athologist Signature Flow Cytometry Yes [facility] (Received) [facility]ENTER Comment: Test performed by: [facility] Flow Cytometry Laboratory [address] [place] [address] Nae Ap Link [id number] [facility] Specimen Anatomical Collection Method Collection Time Receive d Time (Source) Location / / Volume Laterality Bone Marrow 11/14/2022 12:07 11/14/2022 PM MINER ASSISTANT 12:57 PM MINER ASSISTANT Shiraz Pritchard MD, MDA HP FC NONBLOOD COLLECTIO NS Performing Organization Address City/State/ZIP Code Phon e Number [facility] Unless otherwise noted, [place] [address] CENTER all lab tests performed by: Division of Pathology and Laboratory Medicine [facility] Deejay BAIN DIAGNOSTIC BONE MARROW ASPIRATIONS (11/14/2022 12:03 PM MINER ASSISTANT) Specimen (Source) Anatomical Location Collection Method / Collectio n Time Received Time / Laterality Volume Bone Marrow Narrative [facility] - 12:03 PM MINER ASSISTANT PARK Tobin 11/14/2022 1:00 PM Procedure: Bone marrow aspiration Date/Time: 11/14/2022 12:03 PM Provider Information: Performed by: PARK Tobin Authorized by: Shiraz Pritchard MD Art Tracer present: yes Art Tracer: RT [place] party host/hostess 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 n ot needed 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 Indication: Indication: evaluation of disease status Anesthesia: Anesthesia: local infiltration Patient anesthetized by: advanced practi ce provider Local anesthetic: lidocaine 1% without e pinephrine Anesthetic total (ml): 20 Sedation: Patient sedated?: patient not sedated Aspirate Site(s): Laterality: left Site location: posterior iliac crest Instrument(s) used: [place] needle Instruments placed by: advanced practice provider Dressing: Dressing: compression bandage Post-Procedure Patient Assessment: Patient tolerance: well Estimated blood loss: none Complications/Observations: no complicat ions Pre-procedure pain scale: 0/10 Greater than 20ccs of Lidocaine given?: No Post-procedure pain scale: 0/10 Discharge/Disposition: Discharge instructions: verbal Patient discharged to: discharge home wi th caregiver Disposition mode: wheelchair Sample Disposition: Testing performed: flow cytometry, cytog enetics and pathology Research samples(s): yes Protocol #: [id number] Aspirate volume obtained (mL) - left: 35 Visual assessment for aspirate specimen adequacy - left: particles Comments: BRIEF FINDINGS: The patient was identifi ed by name, MRN, and both verbally and against the wrist band. A [employer] motor man on the IPad was utilized for this visit. Her platelet co unt was 317K and adequate for the procedure. 1% plain lidocaine was used t o anesthetize the left posterior iliac crest. Ms. Anderson was reminded about the pos sible side-effects/complications to bone marrow procedures including the following: Bleeding at the insertion site * Hematoma (bleeding outside a vein or a rtery) * Swelling * Discomfort at the site of injection * Tenderness or discomfort at the insert ion site * Pain in the buttocks, legs or muscles at the procedure site * Mild to severe bleeding into the butto ck or into the space lining the nguyen of the abdominal cavity * Infection She verbalized understanding of these ri sks and signed the informed consent form. Overall, Ms. Grewal tolerated the pro cedure well. She was instructed to keep the bandage on and dry for 24 hours following the procedure. Patient was discharged hemodynamically stable. Shiraz Pritchard MD PROCEDURE/MINOR SURGICAL ORD ERABLES Performing Organization Address City/State/ZIP Code Phon e Number [facility] Unless otherwise noted, [place] [address] [place] all lab tests performed by: Division of Pathology and Laboratory Medicine [facility] Hematopathology Bone Marrow Interpretation (11/14/2022 11:50 AM MINER ASSISTANT)Only the most recent of2 resultswithin the time period is included. Component Value Ref Test Analysis Performed Pathologis t Range Method Time At Signature Diagnosis 11/17/2022 [facility] Electro nically Bone marrow, left posterior iliac crest, clot section and aspirate smears: 11:52 AM signed by Sveta Gonzalez Cellular (~60%) bone marrow with trilineage hematopoiesis an d 2% blasts MD Mercedes on 11/17/2022 a t No morphologic support for acute leukemia 11:52 AM Flow cytometry and RT-PCR studies to evaluate residual disea se underway Entire report [place] [id number] Microscopic 11/17/2022 [facility] Description BONE MARROW CLOT 11:52 AM MINER ASSISTANT Quality: Adequate Cellularity: ~60% Megakaryocytes: Adequate in number, unremarkable morphology Infiltrate: Not identified Additional findings: Trilineage hematopoiesis BONE MARROW SMEARS Quality / cellularity: Adequate quality particulate smears Granulocytes: Adequate in pr oportion, complete maturation, unremarkable morphology Erythrocytes: Adequate in pr oportion, complete maturation, unremarkable morphology Megakaryocytes: Unremarkable morphology Lymphocytes: Not increased, predominantly small with condens ed chromatin Blasts: Rare Gross A: 11/17/2022 [facility] Description Iliac crest, left posterior, clot 11:5 2 AM Dimensions: 0.3 x 3.0 x 2.5 cm MINER ASSISTANT Specimen is entirely submitted in 1. BB Disclaimer "Some tests 11/17/2022 [facility] reported here may 11:52 AM have been MINER ASSISTANT developed and performance characteristics determined by [facility] Pathology and Laboratory Medicine. These tests have not been specifically cleared or approved by the U.S. Food and Drug Administration. If applicable, controls were reviewed and showed appropriate reactivity." Specimen Anatomical Collection Method Collection Time Receive d Time (Source) Location / / Volume Laterality Bone Marrow Collection / 11/14/2022 11:50 11/14/2022 1:13 (Iliac Crest, Unknown AM MINER ASSISTANT PM MINER ASSISTANT Left Posterior, Clot) Bone Marrow Collection / 11/14/2022 11:50 11/14/2022 (Iliac Crest, Unknown AM MINER ASSISTANT 12:58 PM MINER ASSISTANT Left Posterior, Aspirate) Shiraz Pritchard MD LAB PATHOLOGY ORDERABLES Performing Organization Address City/State/ZIP Code Phon e Number [facility] [place] [address] [address] (ABNORMAL) Hematopathology Bone Marrow Differential (11/14/2022 11:50 AM MINER ASSISTANT) Only the most recent of2 resultswithin the time period is included. Component Value Ref Test Analysis Performed At Patholo gist Range Method Time Signature Method Smear 11/17/2022 [facility] 11:52 AM MINER ASSISTANT Adequacy Satisfactory 11/17/2022 [facility] for evaluation 11:52 AM MINER ASSISTANT Total cells 500 11/17/2022 [facility] counted 11:52 AM MINER ASSISTANT BM Blast % 2 0 - 5 % 11/17/2022 [facility] 11:52 AM MINER ASSISTANT BM Progranulocyte 1 (L) 2 - 8 % 11/17/2022 [facility] % 11:52 AM MINER ASSISTANT BM Myelocyte % 8 5 - 20 % 11/17/2022 [facility] 11:52 AM MINER ASSISTANT BM Metamyelocyte 13 13 - 32 11/17/2022 [facility] % % 11:52 AM MINER ASSISTANT BM Granulocyte % 40 (H) 7 - 30 % 11/17/2022 [facility] 11:52 AM MINER ASSISTANT BM Eosinophil % 3 0 - 4 % 11/17/2022 [facility] 11:52 AM MINER ASSISTANT BM Lymphocyte % 9 3 - 17 % 11/17/2022 [facility] 11:52 AM MINER ASSISTANT BM Plasma Cell % 1 0 - 2 % 11/17/2022 [facility] 11:52 AM MINER ASSISTANT BM Monocyte % 3 0 - 5 % 11/17/2022 [facility] 11:52 AM MINER ASSISTANT BM Pronormoblast 1 1 - 8 % 11/17/2022 [facility] % 11:52 AM MINER ASSISTANT BM Normoblast % 19 7 - 32 % 11/17/2022 [facility] 11:52 AM MINER ASSISTANT BM M:E Ratio 3.5 3.0 - 11/17/2022 [facility] 4.0 11:52 AM MINER ASSISTANT Specimen Anatomical Collection Method Collection Time Receive d Time (Source) Location / / Volume Laterality Bone Marrow Collection / 11/14/2022 11:50 11/14/2022 (Iliac Crest, Unknown AM MINER ASSISTANT 12:58 PM MINER ASSISTANT Left Posterior, Aspirate) Narrative [facility] - 11/17/2022 11:52 AM MINER ASSISTANT DISCLAIMER Preliminary BM Diff may have been comple nacho by a medical administrator or a hematopathology fellow and is subject to change. Any pathologist updates will be included on interpretation and appear in the f inal result. Please use caution in evalu ating your patient based on preliminary results. Shiraz Pritchard MD LAB PATHOLOGY ORDERABLES Performing Organization Address City/State/ZIP Code Phon e Number [facility] [place] [address] [address] Glucose, Random (11/14/2022 7:59 AM MINER ASSISTANT)Only the most recent of6 resultswithin the time period is included. P athologist Signature Glucose Random 155 70 - 199 [facility] mg/dL DIAG[facility]STIC [facility]ENTER Comment: Effective 05/07/16, the glucose reference intervals have been updated based on [place] Diabetes [employer] guidelines (Standards of Medical Care [...] (Source) Location / / Volume Laterality Blood 11/14/2022 7:59 AM 3 8:15 MINER ASSISTANT AM MINER ASSISTANT Shiraz Pritchard MD LAB BLOOD ORDERABLES Performing Organization Address City/[facility] Phon e Number [facility] DIAGNOSTIC Unless otherwise noted, [address] all lab tests performed by: Division of Pathology and Laboratory Medicine [address] [place] [address] .Serum Creatinine (11/14/2022 7:59 AM MINER ASSISTANT)Only the most recent of7 resultswithin the time period is included. athologist Signature Creatinine 0.60 0.51 - 0.95 [facility] mg/dL DIAGNOSTIC CENTER Specimen Anatomical Collection Method Collection Time Receive d Time (Source) Location / / Volume Laterality Blood 11/14/2022 7:59 AM 3 8:15 MINER ASSISTANT AM MINER ASSISTANT Shiraz Pritchard MD LAB BLOOD ORDERABLES Performing Organization Address City/[facility] Phon e Number [facility] DIAGNOSTIC Unless otherwise noted, [address] all lab tests performed by: Division of Pathology and Laboratory Medicine [address] [place] [address] (ABNORMAL) .CBC (11/14/2022 7:59 AM MINER ASSISTANT)Only the most recent of7 resultswithin the time period is included. Analysis Performed At Patho logist Time Signature WBC 8.1 4.0 - 11.0 [facility] K/uL DIAGNOSTIC CENTER RBC 5.76 (H) 4.00 - [facility] 5.50 M/uL DIAGNOSTIC CENTER Hgb 14.6 12.0 - [facility] 16.0 gm/dL DIAGNOSTIC CENTER Hct 45.3 37.0 - [facility] 47.0 % DIAGNOSTIC CENTER MCV 79 (L) 82 - 98 fL [facility] DIAGNOSTIC CENTER MCH 25.3 (L) 27.0 - [facility] 31.0 pg DIAGNOSTIC CENTER MCHC 32.2 31.0 - [facility] 36.0 gm/dL DIAGNOSTIC CENTER RDW-SD 45.4 35.1 - [facility] 46.3 fL DIAGNOSTIC CENTER RDW-CV 16.0 (H) 12.0 - [facility] 15.5 % DIAGNOSTIC CENTER Platelet count 317 140 - 440 [facility] K/uL DIAGNOSTIC CENTER MPV 9.8 4.0 - 10.4 [facility] fL DIAGNOSTIC CENTER INRBC 0.0 <=0.0 % [facility] DIAGNOSTIC CENTER Comment: The INRBC (instrument NRBC) [...] (Source) Location / / Volume Laterality Blood 11/14/2022 7:59 AM 3 8:10 MINER ASSISTANT AM MINER ASSISTANT Shiraz Pritchard MD LAB BLOOD ORDERABLES Performing Organization Address City/State/ZIP Code Phon e Number [facility] DIAGNOSTIC Unless otherwise noted, [place], [place] [address] [place] all lab tests performed by: Division of Pathology and Laboratory Medicine [address] [place] [address] Clot Expiration Date (11/14/2022 7:59 AM MINER ASSISTANT)Only the most recent of5 results within the time period is included. Patholo gist Method Time Signature T & S 11/17/2022 [facility] [place] Specimen Anatomical Collection Method Collection Time Receive d Time (Source) Location / / Volume Laterality Blood 11/14/2022 7:59 AM 3 8:40 MINER ASSISTANT AM MINER ASSISTANT Shiraz Pritchard MD BLOOD BANK TEST ORDERABLES Performing Organization Address City/[facility]/ZIP [facility] Phon e Number [facility] CANCER Unless otherwise noted, [place] [address] CENTER all lab tests performed by: Division of Pathology and Laboratory Medicine [address] [facility] Glomerular Filtration Rate (11/14/2022 7:59 AM MINER ASSISTANT)Only the most recent of7 resultswithin the time period is included. athologist Signature eGFR 90 >=60 [facility] mL/min/1.73 DIAGNOSTIC sq. m CENTER Comment: The [...] (Source) Location / / Volume Laterality Blood 11/14/2022 7:59 AM 8:15 MINER ASSISTANT AM MINER ASSISTANT Shiraz Pritchard MD LAB BLOOD ORDERABLES Performing Organization Address City/State/ZIP Code Phon e Number [facility] DIAGNOSTIC Unless otherwise noted, [place] [address] [place] all lab tests performed by: Division of Pathology and Laboratory Medicine [address] [facility] Fractionated Bilirubin (11/14/2022 7:59 AM MINER ASSISTANT)Only the most recent of7 results within the time period is included. athologist [facility] Bili Total 0.3 <=1.2 mg/dL [facility] DIAG[facility]STIC CENTER Comment: Indocyanine Green (ICG) may cause falsel y elevated bilirubin results. Total and direct bilirubin must not be measured from samples containing indocyanine green. False elevation of total bilirubin can b e seen in patients with IgG concentrations above 28 g/L. Bili Direct <0.2 <=0.3 mg/dL [place] [facility] Comment: Indocyanine Green (ICG) may cau se falsely elevated bilirubin results. Total and direct bilirubin must not be measure d from samples containing indocyanine green. Bili Indirect See Note 0.0 - 0.9 mg/dL [facility] Comment: Unable to calculate Indirect Bi lirubin result due to some parameters are outside reportable range Specimen Anatomical Collection Method Collection Time Receive d Time (Source) Location / / Volume Laterality Blood 11/14/2022 7:59 AM 8:15 MINER ASSISTANT AM MINER ASSISTANT Shiraz Pritchard MD LAB BLOOD ORDERABLES Performing Organization Address City/State/ZIP Code Phon e Number [place] MD [facility] Unless otherwise noted, [place] [address] CENTER all lab tests performed by: Division of Pathology and Laboratory Medicine [address] MD t(9;22) BCR/ABL1 Quantitative PCR Interpretation and Report (11/14/2022 7:59 AM MINER ASSISTANT)Only the most recent of3 resultswithin the time period is included. Specimen Anatomical Collection Method Collection Time Receive d Time (Source) Location / / Volume Laterality 11/14/2022 7:59 AM 3 MINER ASSISTANT 10:52 AM MINER ASSISTANT Narrative This result has an attachment that is no t available. Marysol NICK MDA HP MOLECULAR DIAGNOSTICS (HP ) TMP Interpretation Antibody Screen Negative (11/14/2022 7:59 AM MINER ASSISTANT)Only the most recent of5 resultswithin the time period is included. [facility] gist Method Time Signature TMP Auto Neg At the [place] [facility] CENTER patient plasma shows no evidence of RBC alloantibodi es. Comment: JEFFERSON BARR, Dictated by: JEFFERSON BARR, Dictated Date/Time: 11.14.2022 12:35 PM MINER ASSISTANT Transcribed Date/Time: 11.14.2022 12:35 PM MINER ASSISTANT Electronically Signed By: JEFFERSON BARR , on 11.14.2022 12:35 PM Specimen Anatomical Collection Method Collection Time Receive d Time (Source) Location / / Volume Laterality Blood 11/14/2022 7:59 AM 3 8:40 MINER ASSISTANT AM MINER ASSISTANT Shiraz Pritchard MD BLOOD BANK TEST ORDERABLES Performing Organization Address City/[facility]/ZIP Code Phon e Number [facility] CANCER Unless otherwise noted, [address] all lab tests performed by: Division of Pathology and Laboratory Medicine [address] Peripheral Smear for Bone Marrow (11/14/2022 7:59 AM MINER ASSISTANT)Only the most recent of 2 resultswithin the time period is included. athologist [facility] Peripheral [facility]ear [facility] Specimen Anatomical Collection Method Collection Time Receive d Time (Source) Location / / Volume Laterality Blood 11/14/2022 7:59 AM 3 8:10 MINER ASSISTANT AM MINER ASSISTANT Shiraz Pritchard MD LAB BLOOD ORDERABLES Performing Organization Address City/[facility] Code Phon e Number [facility] Unless otherwise noted, [place] [address] [place] all lab tests performed by: Division of Pathology and Laboratory Medicine [facility] Tryptase (11/14/2022 7:59 AM MINER ASSISTANT) athologist [facility] 3.0 <11.5 ng/mL [facility] Comment: Test Performed by: [facility] [address] [place] [address] Test Inspection Engineer: Wilfredo Saldana M.D. Ph. D.; CLIA# [id number] Specimen Anatomical Collection Method Collection Time Receive d Time (Source) Location / / Volume Laterality Blood 11/14/2022 7:59 AM 3 9:04 MINER ASSISTANT AM MINER ASSISTANT Shiraz Pritchard MD LAB BLOOD ORDERABLES Performing Organization Address City/[facility]/ZIP [facility] Phon e Number [facility] CANCER Unless otherwise noted, [address] all lab tests performed by: Division of Pathology and Laboratory Medicine [address] ABORh (11/14/2022 7:59 AM MINER ASSISTANT)Only the most recent of5 resultswithin the time period is included. athologist Signature ABORh. O POS [facility] Specimen Anatomical Collection Method Collection Time Receive d Time (Source) Location / / Volume Laterality Blood 11/14/2022 7:59 AM 3 8:40 MINER ASSISTANT AM MINER ASSISTANT Shiraz Pritchard MD BLOOD BANK TEST ORDERABLES Performing Organization Address City/State/ZIP Code Phon e Number [facility] CANCER Unless otherwise noted, [place] [address] [place] all lab tests performed by: Division of Pathology and Laboratory Medicine [address] (ABNORMAL) Differential (11/14/2022 7:59 AM MINER ASSISTANT)Only the most recent of7 results within the time period is included. athologist [facility] Neutrophil % 60.0 42.0 - [facility] 66.0 % DIAGNOSTIC CENTER Lymphocyte % 24.0 24.0 - [facility] 44.0 % DI[facility] CENTER Monocyte % 10.9 (H) 2.0 - 7.0 [facility] % DIAGNOSTIC CENTER Eosinophil % 3.3 1.0 - 4.0 [facility] % DIAGNOSTIC CENTER Basophil % 1.4 (H) 0.0 - 1.0 [facility] % DIAGNOSTIC CENTER IGRE % 0.4 0.0 - 0.4 [facility] % [facility] Comment: IGRE % count includes Metamyelo cytes, Myelocytes, and Promyelocytes. Neutrophil Abs 4.85 1.70 - 7.30 K/uL [place] MD [facility] Lymphocyte Abs 1.94 1.00 - 4.80 K/uL [place] [facility] [place] Monocyte Abs 0.88 (H) 0.08 - 0.70 K/uL [place] [facility] Eosinophil Abs 0.27 0.04 - 0.40 K/uL [place] [facility] [place] Basophil Abs 0.11 (H) 0.00 - 0.10 K/uL [place] [facility] IG Abs 0.03 0.00 - 0.04 K/uL [place] MD DULCE [facility] DIAGNOSTIC [place] Specimen Anatomical Collection Method Collection Time Receive d Time (Source) Location / / Volume Laterality Blood 11/14/2022 7:59 AM 3 8:10 MINER ASSISTANT AM MINER ASSISTANT Shiraz Pritchard MD LAB BLOOD ORDERABLES Performing Organization Address City/[facility]/ZIP [facility] Phon e Number [facility] Unless otherwise noted, [place], [place] [address] [place] all lab tests performed by: Division of Pathology and Laboratory Medicine [facility]5 [facility] Antibody Screen (11/14/2022 7:59 AM MINER ASSISTANT)Only the most recent of5 resultswithin the time period is included. P athologist Signature ABSC. Negative ABSC [facility] Specimen Anatomical Collection Method Collection Time Receive d Time (Source) Location / / Volume Laterality Blood 11/14/2022 7:59 AM 3 8:40 MINER ASSISTANT AM MINER ASSISTANT Shiraz Pritchard MD BLOOD BANK TEST ORDERABLES Performing Organization Address City/[facility] Phon e Number [facility] Unless otherwise noted, [place] [address] [place] all lab tests performed by: Division of Pathology and Laboratory Medicine [facility]5 [facility] Uric Acid (11/14/2022 7:59 AM MINER ASSISTANT)Only the most recent of6 resultswithin the time period is included. athologist Signature Uric Acid 3.8 2.4 - 5.7 [facility] mg/dL DIAGNOSTIC CENTER Specimen Anatomical Collection Method Collection Time Receive d Time (Source) Location / / Volume Laterality Blood 11/14/2022 7:59 AM 3 8:15 MINER ASSISTANT AM MINER ASSISTANT Shiraz Pritchard MD LAB BLOOD ORDERABLES Performing Organization Address City/[facility]/ZIP Code Phon e Number [facility] Unless otherwise noted, [place], [place] [address] [place] all lab tests performed by: Division of Pathology and Laboratory Medicine [address] BUN (11/14/2022 7:59 AM MINER ASSISTANT)Only the most recent of7 resultswithin the time period is included. athologist Signature BUN 14 6 - 23 [facility] mg/dL DIAGNO[facility]IC CENTER Specimen Anatomical Collection Method Collection Time Receive d Time (Source) Location / / Volume Laterality Blood 11/14/2022 7:59 AM 3 8:15 MINER ASSISTANT AM MINER ASSISTANT Shiraz Pritchard MD LAB BLOOD ORDERABLES Performing Organization Address City/[facility] Phon e Number [facility] Unless otherwise noted, [address] all lab tests performed by: Division of Pathology and Laboratory Medicine [address] (ABNORMAL) Triglycerides (11/14/2022 7:59 AM MINER ASSISTANT)Only the most recent of3 resultswithin the time period is included. athologist Signature Trig 166 (H) <=149 mg/dL [facility] Comment: ATP III Classification of Serum [...] (Source) Location / / Volume Laterality Blood 11/14/2022 7:59 AM 3 8:15 MINER ASSISTANT AM MINER ASSISTANT Marysol NICK LAB BLOOD ORDERABLES Performing Organization Address City/[facility]/ZIP [facility] Phon e Number [facility] Unless otherwise noted, [address] all lab tests performed by: Division of Pathology and Laboratory Medicine [address] Alanine Aminotransferase (11/14/2022 7:59 AM MINER ASSISTANT)Only the most recent of7 resultswithin the time period is included. athologist [facility] ALT 23 <=33 U/L [facility] Specimen Anatomical Collection Method Collection Time Receive d Time (Source) Location / / Volume Laterality Blood 11/14/2022 7:59 AM 3 8:15 MINER ASSISTANT AM MINER ASSISTANT Shiraz Pritchard MD LAB BLOOD ORDERABLES Performing Organization Address City/State/ZIP [facility] Phon e Number [facility] Unless otherwise noted, [address] all lab tests performed by: Division of Pathology and Laboratory Medicine [address] Total Protein (11/14/2022 7:59 AM MINER ASSISTANT)Only the most recent of7 resultswithin the time period is included. athologist [facility] Total Protein 7.1 6.4 - 8.3 [facility] g/dL [facility] Specimen Anatomical Collection Method Collection Time Receive d Time (Source) Location / / Volume Laterality Blood 11/14/2022 7:59 AM 3 8:15 MINER ASSISTANT AM MINER ASSISTANT Shiraz Pritchard MD LAB BLOOD ORDERABLES Performing Organization Address City/[facility] Phon e Number [facility] DI[facility] Unless otherwise noted, [address] all lab tests performed by: Division of Pathology and Laboratory Medicine [address] Phosphorus Level (11/14/2022 7:59 AM MINER ASSISTANT)Only the most recent of7 resultswithin the time period is included. P athologist Signature Phosphorus 2.6 2.5 - 4.5 [facility] mg/dL DIAGNOSTIC CENTER Specimen Anatomical Collection Method Collection Time Receive d Time (Source) Location / / Volume Laterality Blood 11/14/2022 7:59 AM 3 8:15 MINER ASSISTANT AM MINER ASSISTANT Shiraz Pritchard MD LAB BLOOD ORDERABLES Performing Organization Address [facility] Phon e Number [facility] DI[facility] Unless otherwise noted, [address] all lab tests performed by: Division of Pathology and Laboratory Medicine [address] Alkaline Phosphatase (11/14/2022 7:59 AM MINER ASSISTANT)Only the most recent of7 results within the time period is included. P athologist Signature Alk Phos 92 35 - 104 [facility] U/L DI[facility]IC [facility]ENTER Specimen Anatomical Collection Method Collection Time Receive d Time (Source) Location / / Volume Laterality Blood 11/14/2022 7:59 AM 3 8:15 MINER ASSISTANT AM MINER ASSISTANT Shiraz Pritchard MD LAB BLOOD ORDERABLES Performing Organization Address City/[facility] Phon e Number [facility] Unless otherwise noted, [address] all lab tests performed by: Division of Pathology and Laboratory Medicine [address] Magnesium Level (11/14/2022 7:59 AM MINER ASSISTANT)Only the most recent of7 resultswithin the time period is included. athologist Signature Magnesium 2.1 1.6 - 2.6 [facility] mg/dL DIAG[facility]IC CENTER Specimen Anatomical Collection Method Collection Time Receive d Time (Source) Location / / Volume Laterality Blood 11/14/2022 7:59 AM 3 8:15 MINER ASSISTANT AM MINER ASSISTANT Shiraz Pritchard MD LAB BLOOD ORDERABLES Performing Organization Address City/[facility] Phon e Number [facility] Unless otherwise noted, [address] all lab tests performed by: Division of Pathology and Laboratory Medicine [address] [place] [address] Lipase (11/14/2022 7:59 AM MINER ASSISTANT)Only the most recent of5 resultswithin the time period is included. athologist [facility] Lipase Lvl 25 13 - 60 U/L [facility] Specimen Anatomical Collection Method Collection Time Receive d Time (Source) Location / / Volume Laterality Blood 11/14/2022 7:59 AM 3 8:15 MINER ASSISTANT AM MINER ASSISTANT Marysol NICK LAB BLOOD ORDERABLES Performing Organization Address [facility] Phon e Number [facility] DI[facility] Unless otherwise noted, [address] all lab tests performed by: Division of Pathology and Laboratory Medicine [address] [place] [address] LDH (11/14/2022 7:59 AM MINER ASSISTANT)Only the most recent of5 resultswithin the time period is included. athologist [facility] LDH 187 135 - 214 [facility] U/L [facility] Comment: Results greater than 1651 U/L m ay not be reliable due to matrix effect with extended dilution as it exceeds the manu facturer's recommended limit. Caution should be exercised when interpreting such valu es and done in conjunction with clinical context. Specimen Anatomical Collection Method Collection Time Receive d Time (Source) Location / / Volume Laterality Blood 11/14/2022 7:59 AM 3 8:14 MINER ASSISTANT AM MINER ASSISTANT Shiraz Pritchard MD LAB BLOOD ORDERABLES Performing Organization Address [facility] Phon e Number [facility] DIAGNOSTIC Unless otherwise noted, [address] all lab tests performed by: Division of Pathology and Laboratory Medicine [address] [place], [place] [id number] IgA (11/14/2022 7:59 AM MINER ASSISTANT)Only the most recent of2 resultswithin the time period is included. athologist Signature IgA 96 85 - 499 [facility] mg/dL [facility] CENTER Specimen Anatomical Collection Method Collection Time Receive d Time (Source) Location / / Volume Laterality Blood 11/14/2022 7:59 AM 3 8:41 MINER ASSISTANT AM MINER ASSISTANT Shiraz Pritchard MD LAB BLOOD ORDERABLES Performing Organization Address City/[facility]/ZIP Code Phon e Number [facility] CANCER Unless otherwise noted, [address] all lab tests performed by: Division of Pathology and Laboratory Medicine [address] (ABNORMAL) IgM (11/14/2022 7:59 AM MINER ASSISTANT)Only the most recent of2 resultswithin the time period is included. athologist Signature IgM 29 (L) 35 - 242 [facility] mg/dL [facility] Specimen Anatomical Collection Method Collection Time Receive d Time (Source) Location / / Volume Laterality Blood 11/14/2022 7:59 AM 3 8:41 MINER ASSISTANT AM MINER ASSISTANT Shiraz Pritchard MD LAB BLOOD ORDERABLES Performing Organization Address City/[facility]/ZIP Code Phon e Number [facility] CANCER Unless otherwise noted, [address] all lab tests performed by: Division of Pathology and Laboratory Medicine [address] IgG (11/14/2022 7:59 AM MINER ASSISTANT)Only the most recent of2 resultswithin the time period is included. athologist Signature IgG 632 610 - 1,616 [facility] mg/dL [facility] Specimen Anatomical Collection Method Collection Time Receive d Time (Source) Location / / Volume Laterality Blood 11/14/2022 7:59 AM 3 8:41 MINER ASSISTANT AM MINER ASSISTANT Shiraz Pritchard MD LAB BLOOD ORDERABLES Performing Organization Address City/[facility]/ZIP Code Phon e Number [facility] CANCER Unless otherwise noted, [address] all lab tests performed by: Division of Pathology and Laboratory Medicine [address] Calcium Level (11/14/2022 7:59 AM MINER ASSISTANT)Only the most recent of7 resultswithin the time period is included. athologist Signature Calcium Lvl 9.8 8.4 - 10.2 [facility] mg/dL DI[facility]IC [facility]ENTER Specimen Anatomical Collection Method Collection Time Receive d Time (Source) Location / / Volume Laterality Blood 11/14/2022 7:59 AM 3 8:15 MINER ASSISTANT AM MINER ASSISTANT Shiraz Pritchard MD LAB BLOOD ORDERABLES Performing Organization Address [facility] Phon e Number [facility] DIAGNOSTIC Unless otherwise noted, [address] all lab tests performed by: Division of Pathology and Laboratory Medicine [address] Amylase Level (11/14/2022 7:59 AM MINER ASSISTANT)Only the most recent of5 resultswithin the time period is included. athologist Signature Amylase Lvl 36 28 - 100 [facility] U/L DI[facility]IC [facility]ENTER Specimen Anatomical Collection Method Collection Time Receive d Time (Source) Location / / Volume Laterality Blood 11/14/2022 7:59 AM 3 8:15 MINER ASSISTANT AM MINER ASSISTANT Shiraz Pritchard MD LAB BLOOD ORDERABLES Performing Organization Address [facility] Phon e Number [facility] DIAGNOSTIC Unless otherwise noted, [address] all lab tests performed by: Division of Pathology and Laboratory Medicine [address] Albumin Level (11/14/2022 7:59 AM MINER ASSISTANT)Only the most recent of7 resultswithin the time period is included. athologist Signature Albumin Lvl 4.3 3.5 - 5.2 [facility] gm/dL DIAGNOSTIC CENTER Specimen Anatomical Collection Method Collection Time Receive d Time (Source) Location / / Volume Laterality Blood 11/14/2022 7:59 AM 3 8:15 MINER ASSISTANT AM MINER ASSISTANT Shiraz Pritchard MD LAB BLOOD ORDERABLES Performing Organization Address [facility] Phon e Number [facility] DIAGNOSTIC Unless otherwise noted, [place] [address] [place] all lab tests performed by: Division of Pathology and Laboratory Medicine [address] Electrolyte Panel (11/14/2022 7:59 AM MINER ASSISTANT)Only the most recent of5 resultswithin the time period is included. athologist Signature Sodium Lvl 139 136 - 145 [facility] mEq/L DIAGNOSTIC CENTER Potassium Lvl 3.9 3.5 - 5.1 [facility] mEq/L [facility]ENTER Chloride 104 98 - 107 [facility] mEq/L [facility] CO2 27 22 - 29 [facility] mEq/L [facility] Anion Gap 8 4 - 14 [facility] mEq/L [facility] Specimen Anatomical Collection Method Collection Time Receive d Time (Source) Location / / Volume Laterality Blood 11/14/2022 7:59 AM 3 8:15 MINER ASSISTANT AM MINER ASSISTANT Shiraz Pritchard MD LAB BLOOD ORDERABLES Performing Organization Address City/[facility]/ZIP Code Phon e Number [facility] DIAGNOSTIC Unless otherwise noted, [place] [address] [place] all lab tests performed by: Division of Pathology and Laboratory Medicine [address] Anion Gap (10/31/2022 1:57 AM MINER ASSISTANT)Only the most recent of2 resultswithin the time period is included. P athologist Signature Anion Gap 8 4 - 14 [facility] mEq/L [facility] Specimen Anatomical Collection Method Collection Time Receive d Time (Source) Location / / Volume Laterality Blood 10/31/2022 1:57 AM 3 2:14 MINER ASSISTANT AM MINER ASSISTANT Leisa Chapa NP LAB BLOOD ORDERABLES Performing Organization Address City/[facility]/ZIP Code Phon e Number [facility] CANCER Unless otherwise noted, [address] all lab tests performed by: Division of Pathology and Laboratory Medicine [facility] Aspartate Aminotransferase (10/31/2022 1:57 AM MINER ASSISTANT)Only the most recent of4 resultswithin the time period is included. P athologist Signature AST 29 <=32 U/L [facility] Specimen Anatomical Collection Method Collection Time Receive d Time (Source) Location / / Volume Laterality Blood 10/31/2022 1:57 AM 3 2:14 MINER ASSISTANT AM MINER ASSISTANT Leisa Chapa NP LAB BLOOD ORDERABLES Performing Organization Address City/[facility]/ZIP [facility] Phon e Number [facility] CANCER Unless otherwise noted, [address] all lab tests performed by: Division of Pathology and Laboratory Medicine [address] (ABNORMAL) Sodium Level (10/31/2022 1:57 AM MINER ASSISTANT)Only the most recent of2 results within the time period is included. P athologist Signature Sodium Lvl 135 (L) 136 - 145 [facility] mEq/L [facility] Specimen Anatomical Collection Method Collection Time Receive d Time (Source) Location / / Volume Laterality Blood 10/31/2022 1:57 AM 3 2:14 MINER ASSISTANT AM MINER ASSISTANT Leisa Chapa NP LAB BLOOD ORDERABLES Performing Organization Address City/[facility]/ZIP [facility] Phon e Number [facility] CAN[facility] Unless otherwise noted, [address] all lab tests performed by: Division of Pathology and Laboratory Medicine [address] Potassium Level (10/31/2022 1:57 AM MINER ASSISTANT)Only the most recent of2 resultswithin the time period is included. P athologist Signature Potassium Lvl 3.6 3.5 - 5.1 [facility] mEq/L [facility] Specimen Anatomical Collection Method Collection Time Receive d Time (Source) Location / / Volume Laterality Blood 10/31/2022 1:57 AM 3 2:14 MINER ASSISTANT AM MINER ASSISTANT Leisa Chapa NP LAB BLOOD ORDERABLES Performing Organization Address City/[facility] Phon e Number [facility] CANCER Unless otherwise noted, [address] all lab tests performed by: Division of Pathology and Laboratory Medicine [address] Chloride Level (10/31/2022 1:57 AM MINER ASSISTANT)Only the most recent of2 resultswithin the time period is included. P athologist Signature Chloride 106 98 - 107 [facility] mEq/L [facility] Specimen Anatomical Collection Method Collection Time Receive d Time (Source) Location / / Volume Laterality Blood 10/31/2022 1:57 AM 3 2:14 MINER ASSISTANT AM MINER ASSISTANT Leisa Chapa NP LAB BLOOD ORDERABLES Performing Organization Address City/[facility] Phon e Number [facility] CAN[facility]ER Unless otherwise noted, [address] all lab tests performed by: Division of Pathology and Laboratory Medicine [address] (ABNORMAL) Carbon Dioxide Level (10/31/2022 1:57 AM MINER ASSISTANT)Only the most recent of2 resultswithin the time period is included. athologist Signature CO2 21 (L) 22 - 29 [facility] mEq/L [facility] Specimen Anatomical Collection Method Collection Time Receive d Time (Source) Location / / Volume Laterality Blood 10/31/2022 1:57 AM 3 2:14 MINER ASSISTANT AM MINER ASSISTANT Leisa Chapa NP LAB BLOOD ORDERABLES Performing Organization Address City/[facility]/ZIP Code Phon e Number [facility] CANCER Unless otherwise noted, [address] all lab tests performed by: Division of Pathology and Laboratory Medicine [address] aPTT (10/30/2022 2:39 AM MINER ASSISTANT) athologist Signature aPTT 27.8 22.8 - 34.2 [facility] Specimen Anatomical Collection Method Collection Time Receive d Time (Source) Location / / Volume Laterality Blood 10/30/2022 2:39 AM 3 2:55 MINER ASSISTANT AM MINER ASSISTANT Leisa Chapa NP LAB BLOOD ORDERABLES Performing Organization Address City/[facility]/ZIP Code Phon e Number [facility] CANCER Unless otherwise noted, [address] all lab tests performed by: Division of Pathology and Laboratory Medicine [address] Prothrombin Time (10/30/2022 2:39 AM MINER ASSISTANT) athologist Signature PT 13.6 11.9 - 14.1 [facility] INR 1.10 0.89 - 1.10 [facility] Specimen Anatomical Collection Method Collection Time Receive d Time (Source) Location / / Volume Laterality Blood 10/30/2022 2:39 AM 3 2:55 MINER ASSISTANT AM MINER ASSISTANT Leisa Chapa NP LAB BLOOD ORDERABLES Performing Organization Address City/[facility]/ZIP [facility] Phon e Number [employer] [facility] Unless otherwise noted, [address] all lab tests performed by: Division of Pathology and Laboratory Medicine [address] (ABNORMAL) Fibrinogen (10/30/2022 2:39 AM MINER ASSISTANT) athologist Signature Fibrinogen 522 (H) 214 - 503 [facility] mg/dL [facility] Specimen Anatomical Collection Method Collection Time Receive d Time (Source) Location / / Volume Laterality Blood 10/30/2022 2:39 AM 3 2:55 MINER ASSISTANT AM MINER ASSISTANT Leisa Chapa NP LAB BLOOD ORDERABLES Performing Organization Address City/[facility]/ZIP Code Phon e Number [facility] CANCER Unless otherwise noted, [address] all lab tests performed by: Division of Pathology and Laboratory Medicine [facility] Deejayraysa Sanders D-Dimer (10/30/2022 2:39 AM MINER ASSISTANT) P athologist Signature D-Dimer <0.27 0.10 - 0.50 [facility] EUGENIE mcg/ml [facility]U [facility] Comment: The cut off value for exclusion of venou s thromboembolism is <0.51 mcg/mL FEUs (fibrinogen equival ent units). Specimen Anatomical Collection Method Collection Time Receive d Time (Source) Location / / Volume Laterality Blood 10/30/2022 2:39 AM 3 2:55 MINER ASSISTANT AM MINER ASSISTANT Leisa Chapa NP LAB BLOOD ORDERABLES Performing Organization Address [facility]/ZIP Code Phon e Number [facility] CANCER Unless otherwise noted, [address] all lab tests performed by: Division of Pathology and Laboratory Medicine [facility] Deejayraysa Sanders VRE Rectal Swab (10/29/2022 8:55 PM MINER ASSISTANT) Component Value Ref Test Analysis Performed At Patholo gist Range Method Time Signature Final Report No Vancomycin [facility] Enterococci CANCER [facility] CENTER Path Review - The results have been review ed and electronically signed by Pathologist: [place] MD ADIA Campbell MD, PhD #[id number] [facility] Specimen Anatomical Collection Method Collection Time Receive d Time (Source) Location / / Volume Laterality Rectal Swab 10/29/2022 8:55 PM 3 9:51 MINER ASSISTANT PM MINER ASSISTANT Leisa Chapa NP MICROBIOLOGY - GENERAL ORDER JUS Performing Organization Address City/[facility]/ZIP [facility] Phon e Number [facility] CANCER Unless otherwise noted, [address] all lab tests performed by: Division of Pathology and Laboratory Medicine [facility] Deejayraysa Sanders COVID-19 (SARS-CoV-2)Asymptomatic-LT (10/29/2022 4:26 PM MINER ASSISTANT) [facility] Method Time Signature COVID19 Not Detected Not Detected MARCOS PARRISH (SARS-CoV-2) [facility] COVID19 SARS Inpatient MARCOS PARRISH Indication Admission [facility] Covid 19 See Note MARCOS PARRISH Comment [facility] Comment: The peter SARS-CoV-2 nucleic acid test f or use on the peter María System is a real-time RT-PCR assay intended for the qualitative detection of SARS-CoV-2 (COVID-19) viral RNA in nasopharyngeal swabs from either individuals suspected of COVID-1 9 by their healthcare provider or from any individu al, including individuals without symptoms or other reasons to suspect COVID-19. A fact sheet for patients provided by the garland [employer] ([employer]) can be reviewed at: https://www.fda.gov/media/958634/downloa d. A fact sheet for Health Care providers is provided by the garland maker ([employer]) and can be reviewed at: https://www.fda.gov/media/823907/download Results must be interpreted within the c ontext of all relevant clinical and laboratory findings and should not form the sole basis for a diagnosis or treatment decision. Positive results do not rule out bacterial infection or co- infection with other viruses. Negative results do not preclud e SARS-CoV-2 infection and must be combined with clinical observations, patient history, and/or epidemiological information. This assay has been authorized by the A for use only under Emergency Use Authorization (EUA) in laboratories that have been CLIA-certified to perform moderate-complexity and high-complexity tests. The Microbiology Laboratory at [facility], CLIA Accreditation #[id number] a ms CAP Accreditation #[id number], verified the performance characteristics of this assay. Internal controls are used to monitor all stages of the test process. Specimen (Source) Anatomical Collection Method Collection Time Re ceived Time Location / / Volume Laterality Nasopharyngeal Swab 10/29/2022 4:26 10/29 PM MINER ASSISTANT 4:50 PM MINER ASSISTANT Rupal Tabares MD MICROBIOLOGY - GENERAL ORDER JUS Performing Organization Address City/State/ZIP Code Phon e Number [facility] CANCER Unless otherwise noted, [place] [address] [place] all lab tests performed by: Division of Pathology and Laboratory Medicine [facility] [place] (ABNORMAL) Urinalysis Microscopic Exam (10/29/2022 12:12 PM MINER ASSISTANT) P athologist Signature UA WBC 9 (H) 0 - 2 /HPF [facility] Comment: Some reporting parameters within the Uri nalysis test have changed due to the implementation of new instrumentation in the Main [place], allowing greater sensitivity of measurement. Urinalysis results rep orted by the [facility] using existing instrumentation, as well as Urinalysis t esting performed manually or by backup methodology at the [facility] will remain relatively unchanged. New reporting parameters and units will not be reported for all campuses. UA RBC 2 0 - 2 /HPF [facility] UA Mucous NOT SEEN Not Seen-Trace /HPF [place] MD [facility] UA Bacteria NOT SEEN NOT SEEN /HPF [facility] UA Squam Epi NOT SEEN None-Occasional /HPF [facility] Specimen Anatomical Collection Method Collection Time Receive d Time (Source) Location / / Volume Laterality Urine 10/29/2022 12:12 10/29/2022 PM MINER ASSISTANT 12:17 PM MINER ASSISTANT Rupal Tabares MD LAB BLOOD ORDERABLES Performing Organization Address City/State/ZIP Code Phon e Number [facility] CANCER Unless otherwise noted, [place] [address] [place] all lab tests performed by: Division of Pathology and Laboratory Medicine [place] [place] (ABNORMAL) Urinalysis w/Microscopic if Indicated (10/29/2022 12:12 PM MINER ASSISTANT) Patholo gist Method Time Signature UA Color Colorless (A) Straw-Yel [place] UA Appear Clear Clear [facility] UA Glucose NEG NEG mg/dL [facility] UA Bili NEG NEG [facility] UA Ketones NEG NEG mg/dL [facility] UA Spec Grav 1.019 1.003 - [facility] 1.035 [facility] UA Blood NEG NEG [facility] UA pH 7.0 5.0 - 9.0 [facility] UA Protein NEG NEG mg/dL [facility] UA Urobilinogen NEG NEG [facility] UA Nitrite POS (A) NEG [facility] UA Leuk Est Moderate (A) NEG [facility] Specimen Anatomical Collection Method Collection Time Receive d Time (Source) Location / / Volume Laterality Urine 10/29/2022 12:12 10/29/2022 PM MINER ASSISTANT 12:17 PM MINER ASSISTANT Rupal Tabares MD URINE ORDERABLES Performing Organization Address City/State/ZIP Code Phon e Number [place] [facility] Unless otherwise noted, [place] [address] CENTER all lab tests performed by: Division of Pathology and Laboratory Medicine [address] [place] (ABNORMAL) Urine Culture (10/29/2022 12:12 PM MINER ASSISTANT) Component Value Ref Test Analysis Performed At [facility] gist Range Method Time Signature Final Report 51-99,[id number] cfu/ml Escherichia coli MARCOS PARRISH ... EUGENIE 10 - 50,000 cfu/ml Normal site hyacinth present. [facility] (A) [place] Path Review - The results have been review ed and electronically signed by Pathologist: MARCOS PARRISH Urine Michael Campbell MD, PhD #[id number] [place] () [facility] Organism Escherichia coli MARCOS PARRISH (Stephan) [facility] Specimen Anatomical Collection Method Collection Time Receive d Time (Source) Location / / Volume Laterality Urine 10/29/2022 12:12 10/29/2022 1:43 PM MINER ASSISTANT PM MINER ASSISTANT Organism Antibiotic Method Susceptibility Escherichia coli *MANUELITO expressed in mcg/mL MINIMUM INHIBITORY MANUELITO : MINT CONCENTRATION Escherichia coli Ampicillin MINIMUM INHIBITORY >=32: Resist ant CONCENTRATION Escherichia coli Amoxicillin/Clavulanate MINIMUM INHIBITORY 4: S usceptible CONCENTRATION Escherichia coli Ampicillin/Sulbactam MINIMUM INHIBITORY 4: Susc eptible CONCENTRATION Escherichia coli Piperacillin/Tazobactam MINIMUM INHIBITORY <=4: Susceptible CONCENTRATION Escherichia coli Cephalothin MINIMUM INHIBITORY <=2: Suscept ible CONCENTRATION Escherichia coli Cefpodoxime MINIMUM INHIBITORY <=0.25: Susc eptible CONCENTRATION Escherichia coli Cefotaxime MINIMUM INHIBITORY <=1: Suscept ible CONCENTRATION Escherichia coli Ceftazidime MINIMUM INHIBITORY <=1: Suscept ible CONCENTRATION Escherichia coli Ceftriaxone MINIMUM INHIBITORY <=1: Suscept ible CONCENTRATION Escherichia coli Cefepime MINIMUM INHIBITORY <=1: Suscept ible CONCENTRATION Escherichia coli Aztreonam MINIMUM INHIBITORY <=1: Suscept ible CONCENTRATION Escherichia coli Ertapenem MINIMUM INHIBITORY <=0.5: Susce ptible CONCENTRATION Escherichia coli Imipenem MINIMUM INHIBITORY <=0.25: Susc eptible CONCENTRATION Escherichia coli Meropenem MINIMUM INHIBITORY <=0.25: Susc eptible CONCENTRATION Escherichia coli Amikacin MINIMUM INHIBITORY <=2: Suscept ible CONCENTRATION Escherichia coli Gentamicin MINIMUM INHIBITORY <=1: Suscept ible CONCENTRATION Escherichia coli Tobramycin MINIMUM INHIBITORY <=1: Suscept ible CONCENTRATION Escherichia coli Ciprofloxacin MINIMUM INHIBITORY >=4: Resista nt CONCENTRATION Escherichia coli Levofloxacin MINIMUM INHIBITORY 4: Resistant CONCENTRATION Escherichia coli Nitrofurantoin MINIMUM INHIBITORY <=16: Suscep tible CONCENTRATION Escherichia coli Trimethoprim/Sulfa MINIMUM INHIBITORY <=20: Danuta ceptible CONCENTRATION Rupal Tabares MD MICROBIOLOGY - GENERAL ORDER JUS Performing Organization Address City/State/ZIP Code Phon e Number [facility] CANCER Unless otherwise noted, [place] [address] CENTER all lab tests performed by: Division of Pathology and Laboratory Medicine [address] [facility] [address] Abdomen Pelvis with IV Contrast (10/29/2022 12:00 PM MINER ASSISTANT) Anatomical Region Laterality Modality Abdomen, Pelvis Computed Tomography Specimen (Source) Anatomical Collection Method Collection Time Re ceived Time Location / / Volume Laterality 10/29/2022 12:05 PM MINER ASSISTANT Impressions 10/29/2022 12:24 PM MINER ASSISTANT Few new low density areas along the panc reatic tail which may relate to recent pancreatitis. Improvement in other areas of stranding relating to pancreatitis seen on 11/16/2019. Narrative 10/29/2022 12:24 PM MINER ASSISTANT FULL RESULT: Examination: CT Abdomen/Pelvis with Co ntrast, 10/29/2022 12:00 PM. Clinical History: Acute lymphoblastic le ukemia in remission. Indication: Abdominal pain Comparison: CT 10/06/2020. Technique: CT of the abdomen/pelvis wi th IV and oral contrast. Findings: Lower chest: No new suspicious nodules, consolidations, or pleural effusions. Hepatobiliary: No suspicious lesions. Fe w subcentimeter hypodensities are too small to characterize but likely cysts. No intra or extrahepatic biliary ductal dilatation. Cholelithiasis with calcified st ones without evidence of acute cholecyst itis. No calcified stones seen in the common bile duct. Pancreas: No pancreatic ductal dilatatio n. Decreased peripancreatic stranding compared to 11/16/2019. A few new small low density areas along the tail (series 3 image 55, 62), possibly sequela of recent p ancreatitis. No organized drainable stephanie ections or parenchymal necrosis. Spleen: No splenomegaly. No suspicious f ocal lesions. Adrenals: No adrenal nodules. Kidneys: No hydronephrosis. No suspiciou s lesions. GI Tract: Small hiatal hernia. No eviden ce of obstruction. Colonic diverticula without evidence of diverticulitis. No evidence of appendicitis. Pelvic organs: Uterus present. Uterine c alcification likely due to fibroid. No adnexal masses. Vessels: No aneurysmal dilation of the a alli. Lymph nodes: No enlarged retroperitoneal , mesenteric, or pelvic lymph nodes. Peritoneum: No free air or free fluid. Musculoskeletal: Small fat-containing um bilical hernia. No destructive osseous lesions. Procedure Note Rivas Rodriguez MD - 10/29/2022Formattin g of this note might be different from the original. FULL RESULT: Examination: CT Abdomen/Pelvis with Cont rast, 10/29/2022 12:00 PM. Clinical History: Acute lymphoblastic le ukemia in remission. Indication: Abdominal pain Comparison: CT 10/06/2020. Technique: CT of the abdomen/pelvis with IV and oral contrast. Findings: Lower chest: No new suspicious nodules, consolidations, or pleural effusions. Hepatobiliary: No suspicious lesions. Fe w subcentimeter hypodensities are too small to characterize but likely cysts. No intra or extrahepatic biliary ductal dilatation. Cholelithiasis with calcified stones without evidence of acute cholecystitis. No calc ified stones seen in the common bile duct. Pancreas: No pancreatic ductal dilatatio n. Decreased peripancreatic stranding compared to 11/16/2019. A few new small low density areas along the tail (series 3 image 55, 62), possibly sequela of recent pancreatitis. No organized drainable collections or pa renchymal necrosis. Spleen: No splenomegaly. No suspicious f ocal lesions. Adrenals: No adrenal nodules. Kidneys: No hydronephrosis. No suspiciou s lesions. GI Tract: Small hiatal hernia. No eviden ce of obstruction. Colonic diverticula without evidence of diverticulitis. No evidence of appendicitis. Pelvic organs: Uterus present. Uterine c alcification likely due to fibroid. No adnexal masses. Vessels: No aneurysmal dilation of the a alli. Lymph nodes: No enlarged retroperitoneal , mesenteric, or pelvic lymph nodes. Peritoneum: No free air or free fluid. Musculoskeletal: Small fat-containing um bilical hernia. No destructive osseous lesions. IMPRESSION: Few new low density areas along the panc reatic tail which may relate to recent pancreatitis. Improvement in other areas of stranding relating to pancreatitis seen on 11/16/2019. Rupal Tabares MD IMG CT ORDERABLES (ABNORMAL) Glucose Level (10/29/2022 9:57 AM MINER ASSISTANT) athologist Signature Glucose Level 175 (H) 70 - 99 [facility] mg/dL CANCER CENTER Comment: Effective 05/07/16, the glucose reference intervals have been updated based on [place] Diabetes [employer] guidelines (Standards of Medical Care [...] (Source) Location / / Volume Laterality Blood 10/29/2022 9:57 AM 3 MINER ASSISTANT 10:05 AM MINER ASSISTANT Rupal Tabares MD LAB BLOOD ORDERABLES Performing Organization Address City/State/ZIP Code Phon e Number [facility] CANCER Unless otherwise noted, [address] all lab tests performed by: Division of Pathology and Laboratory Medicine Claudia Sanders MD t(9;22) BCR/ABL1 Quantitative PCR Collection, Blood (05/16/2022 7:33 AM CDT) athologist [facility] Molecular Yes [facility] Diagnostics CANCER CENTER (Received) Specimen Anatomical Collection Method Collection Time Receive d Time (Source) Location / / Volume Laterality Blood 05/16/2022 7:33 AM 2 CDT 10:33 AM CDT Abiola PELAEZ MD BLOOD COLLECTIONS Performing Organization Address City/State/ZIP Code Phon e Number [facility] CANCER Unless otherwise noted, [address] all lab tests performed by: Division of Pathology and Laboratory Medicine Claudia Sanders MD TP53 Collection, Nonblood (02/14/2022 2:36 PM CDT) athologist Signature Molecular Yes [facility] (Received) Specimen Anatomical Collection Method Collection Time Receive d Time (Source) Location / / Volume Laterality Bone Marrow 02/14/2022 2:36 PM 2 5:06 CDT PM CDT Marysol NICK MDA HP MD NONBLOOD COLLECTIO NS Performing Organization Address City/State/ZIP Code Phon e Number [facility] CANCER Unless otherwise noted, [address] all lab tests performed by: Division of Pathology and Laboratory Medicine Claudia Sanders MD NOTCH1 Exons 26, 27, 34 Collection, Nonblood (02/14/2022 2:36 PM CDT) athologist Signature Molecular Yes [facility] (Received) Specimen Anatomical Collection Method Collection Time Receive d Time (Source) Location / / Volume Laterality Bone Marrow 02/14/2022 2:36 PM 2 5:06 CDT PM CDT Marysol NICK MDA HP MD NONBLOOD COLLECTIO NS Performing Organization Address City/State/ZIP Code Phon e Number [facility] CANCER Unless otherwise noted, [address] all lab tests performed by: Division of Pathology and Laboratory Medicine Claudia SOMMERS MRD B ALL Collection, Nonblood (02/14/2022 2:36 PM CDT) [facility] Flow Cytometry Yes [facility] (Received) CANCER CENTER Specimen Anatomical Collection Method Collection Time Receive d Time (Source) Location / / Volume Laterality Bone Marrow 02/14/2022 2:36 PM 2 4:42 CDT PM CDT Marysol NICK MDA HP FC NONBLOOD COLLECTIO NS Performing Organization Address City/[facility]/ZIP Code Phon e Number [facility] CANCER Unless otherwise noted, [address] all lab tests performed by: Division of Pathology and Laboratory Medicine Claudia Sanders MD t(9;22) BCR/ABL1 Quantitative PCR Collection, Nonblood (02/14/2022 2:36 PM CDT) athologist Signature Molecular Yes [facility] (Received) Specimen Anatomical Collection Method Collection Time Receive d Time (Source) Location / / Volume Laterality Bone Marrow 02/14/2022 2:36 PM 2 5:06 CDT PM CDT Marysol NICK MDA HP MD NONBLOOD COLLECTIO NS Performing Organization Address City/State/ZIP Code Phon e Number [facility] CANCER Unless otherwise noted, [address] all lab tests performed by: Division of Pathology and Laboratory Medicine [address] [place] [address] Chromosome Analysis Collection, Nonblood (02/14/2022 2:36 PM CDT) P athologist Signature Cytogenetics Yes [facility] (Received) [facility] Specimen Anatomical Collection Method Collection Time Receive d Time (Source) Location / / Volume Laterality Bone Marrow 02/14/2022 2:36 PM 2 4:22 CDT PM CDT Marysol NICK MDA HP CG NONBLOOD COLLECTIO NS Performing Organization Address City/[facility] Code Phon e Number [facility] CANCER Unless otherwise noted, [address] all lab tests performed by: Division of Pathology and Laboratory Medicine [address] [place] [address] Chromosome Analysis Interpretation and Report (02/14/2022 2:36 PM CDT) Specimen (Source) Anatomical Collection Method Collection Time Re ceived Time Location / / Volume Laterality 02/14/2022 2:36 PM CDT Narrative This result has an attachment that is no t available. Marysol NICK MDA HP CYTOGENETICS (HP CG) Molecular Diagnostics Specimen Collection -Bone Marrow (02/14/2022 2:36 PM CDT) Patholo gist Method Time Signature Molecular Yes [facility] (Received) [facility] Nae Amanda Link [id number] [facility] Specimen Anatomical Collection Method Collection Time Receive d Time (Source) Location / / Volume Laterality Bone Marrow 02/14/2022 2:36 PM 2 5:06 CDT PM CDT Marysol NICK MDA HP MD NONBLOOD COLLECTIO NS Performing Organization Address City/[facility]/ZIP Code Phon e Number [facility] CANCER Unless otherwise noted, [place] [address] CENTER all lab tests performed by: Division of Pathology and Laboratory Medicine [address] DIAGNOSTIC BONE MARROW ASPIRATIONS (02/14/2022 2:22 PM CDT) Specimen (Source) Anatomical Location Collection Method / Collectio n Time Received Time / Laterality Volume Bone Marrow Narrative [facility] - 2 2:22 PM CDT PARK Bonilla 02/14/2022 3:08 PM Procedure: Bone marrow aspiration Date/Time: 02/14/2022 2:22 PM Provider Information: Performed by: PARK Bonilla Authorized by: PARK Deras Art Tracer present: yes Art Tracer: Megan Celestin RN party host/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 Declined clothes marker.Versed 2.5 mg PO given by Megan TREVIÑO. Post procedure i nstructions reviewed with daughter and patient. Discharged awake, stable. The patient was positively identified by Name, MRN, and . Informed consent obtained. 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 Pt denied taking an y blood thinners besides aspirin 81 mg which she took yesterday. Laboratory values were reviewed and platelet count was 251 and adequate for the proce dure. The patient tolerated the procedure well. Following the procedure pressure was applied to site until homeostasis achieved. A gel foam was kena lied. Patient was instructed to keep the [...] Organization Address City/State/ZIP Code Phon e Number [facility] CANCER Unless otherwise noted, [address] all lab tests performed by: Division of Pathology and Laboratory Medicine [facility] after 12/26/2021 Insurance Payer Benefit Plan / Subscriber ID Effective Dates Phone Addre ss Type Group HUMANA HUMANA CHOICE [id number] 2020-Presen [address] [address] Medicare MEDICARE [place] [address] Advance Directives Type Date Recorded Patient Instrumentation Engineering Technician Explanati on Advance Directives: 10/28/2019 Directive to Physicians Living Will and Family or Surrogates-Rikki Guerrero Advance Directives: 10/28/2019 Medical Michelle r of Electric Deicer Inspector Medical Power of Electric Deicer Inspector Code Status Date Activated Date Inactivated Comments Full Code 10/29/2022 1:32 PM 10/31/2022 5:27 PM Code Status Date Activated Date Inactivated Comments Full Code 11/17/2019 1:34 AM 11/19/2019 10:06 PM Full Code 11/04/2019 8:41 PM 11/11/2019 9:04 PM Care Teams Director Software Relationship Specialty Start Date End Date Osmel Burger, PCP - External Referring Internal Medicine [facility] [address] [place] [address] [address] Shiraz Pritchard MD PCP - General Leukemia 10/18/[address] [place] [id number]
--- OUTSIDE RECORDS SUMMARY | 2022-12-26 11:47 | XMS REPORT | Continuity of Care Document ---
:1940 Author Organization [facility] t Address [address] [facility] [address] [place] [address] Care Team Providers Name Role Phone Pcp, Patient Does Not Have A Primary Care Physician [id number] Elizabeth Garcia Attending Clinician Unavailable Lupe Kimbrough Attending Clinician Unavailable Malinda Nobles Attending Clinician Unavailable Mar Humphries Attending Clinician Unavailable Koko Wright MD Attending Clinician Adele Hussein Attending Clinician Marysol Peng Attending Clinician SHIRAZ PRITCHARD Attending Clinician Unavailable Shiraz Pritchard MD Attending Clinician Gurwinder Paitno Attending Clinician Mariaa Gonzalez PharmD Attending Clinician Unavailable Jenna Esteban RN Attending Clinician Doctor Unassigned, [place] Attending Clinician Unavailable Rupal Tabares MD Attending Clinician KOKO WRIGHT Attending Clinician Unavailable Mario Kaplan RN Attending Clinician Unavailable Abiola Garcia Attending Clinician Anthony MorleyD, Selena Russell Attending Clinician Unavailable Palomo Jay RPH Attending Clinician Greta Delarosa Attending Clinician Igor TREVIÑO, Rosa Elena Luna Attending Clinician Unavailable Mayor TREVIÑO, Queenie Patel Attending Clinician Unavailable Ward TREVIÑO, Lyssa Attending Clinician Unavailable ORAL PALENCIA Attending Clinician Unavailable MARTHA SAMANIEGO Attending Clinician Unavailable BENJAMIN BARRIENTOS Attending Clinician Unavailable DALILA CORDOVA Attending Clinician Unavailable ABIOLA ROSALES Attending Clinician Unavailable JENNA LINDSAY Attending Clinician Unavailable SHIRAZ PRITCHARD Admitting Clinician Unavailable Payers Payer Name Policy Type Policy Number Effective Date Expiration Date S cole [employer] CHOICE [id number] 2019 MEDICARE PPO 00:00:00 [facility] MEDICARE C1 [id number] 2020 [facility] Sp vonda PPO 00:00:00 - [facility] MEDICARE [id number] 2020 Common Sp vonda PPO 00:00:00 - [facility] MEDICARE C1 [id number] 2020 Common Sp vonda PPO 00:00:00 - [facility] Problems Condition Condition Condition Status Onset Resolution Last Treating Co mments Source Name Details Category Date Date Treatment Clinician Date Urinary Urinary Disease Active Univers tract tract 1-20 [place] [facility] 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 U nivers ciency ciency 6-12 ity of 00:00: 00 MD [facility] Hypermagne Hypermagne Disease Active 2020-0 U nivers semia semia 4-24 ity of 00:00: MD [facility]isha [facility] 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-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 [place] -[place] -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 2-06 ity of acute acute 00:00: [place] pancreatit pancreatit 00 is without is without An derso necrosis necrosis n or or Cancer infection infection Cent er Pancreatit Pancreatit Disease Active U nivers is is 2-05 ity of 00:00: [place] 00 MD [facility] Acute Acute Disease Recurre Univers lymphoblas lymphoblas nce 10-30 it y of tic tic 00:00: [place] leukemia, leukemia, 00 in in [facility] remission remission n Cancer Center Patient Patient Disease Recurre Univer s immunocomp immunocomp nce 10-30 it y of romised romised 00:00: [place] 00 MD Manisha avilez [facility] Anemia due Anemia due Disease Recurre Univers to to nce 10-30 ity of antineopla antineopla 00:[place] stic stic 00 chemothera chemothera An derso py py n Cancer Center 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 [place] openia openia 00 MD Manisha avilez [facility] Essential Essential Disease Recurre Un donnie (primary) (primary) nce 10-30 ity of hypertensi hypertensi 00:[place] on 00 MD Manisha avilez [facility] Osteopenia Osteopenia Problem C ommon [facility] - [facility] Peripheral 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, - [facility] unspecifie [place] [id number] Other Problem Common chronic Spirit pain - [facility] Chronic Chronic Problem Common fatigue fatigue Spirit syndrome - [facility] Mixed Mixed Problem Common hyperlipid hyperlipid Sp vonda emia emia - [facility] [id number] Essential Problem Comm on hypertensi Spirit on - [facility] 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 - [facility] mellitus mellitus St type 2 with other [facility] specified Medical complicati Center on, without long-term current use of insulin [id number] 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 - [facility] with edema [facility] Gastroesop GERD Problem Commo n hageal (gastroeso Spirit reflux phageal - [facility] disease reflux St disease) [facility] No known No known Disease Unive rs active active ity of problems problems [facility] Allergies, Adverse Reactions, Alerts Allergy Allergy Status Severity Reaction(s) Onset Inactive Treating Comm ents Source Name Type Date Date Clinician NO KNOWN Drug Active Univers ALLERGIE Class ity of [facility] Family History Family Member Diagnosis Comments Start Date Stop Date Source Natural father COPD [facility] MD Arnaud Cummings r [employer] [facility] Natural father Rheum arthritis Unive [facility] MD Lares Canjohny r [employer] [facility] Natural mother Heart disease Univers [facility] MD Lares Can r [employer] [facility] Social History Social Habit Start Date Stop Date Quantity Comments Source History SDLA University o f Alcohol Std [place] MD Fred godinez Drinks Cancer Center History [facility] University o f Alcohol Binge [place] MD Rakel dumont [facility] History of [facility] - Tobacco Use [facility] Alcohol intake 2022-10-29 2022-10-29 Lifetime University of 00:00:00 00:00:00 non-drinker [place] MD Fred godinez (finding) Cancer Center Exposure to 2022-10-13 2022-10-23 Not sure University SARS-CoV-2 00:00:00 09:21:00 [facility] (event) Branch History SDOH 2019-11-17 2019-11-17 1 University o f Alcohol Frequency 00:00:00 00:00:00 [facility] Cigarette 2019-10-28 2019-10-28 University of pack-years 00:00:00 00:00:00 [place] MD Pasha larry [facility] Tobacco Comment 2019-10-28 2019-10-28 exposed to second Un iversity of 00:00:00 00:00:00 hand smoke José Miguel larry [facility] Tobacco use and 2019-10-28 2019-10-28 Smokeless tobacco Un iversity of exposure 00:00:00 00:00:00 non-user José Miguel larry [facility] Sex Ass[birth year] Universit y of 00:00:00 00:00:00 José Miguel larry [facility] Smoking Status Start Date Stop Date Source Tobacco smoking [place] consumption unknown Medical Bran ch Former Smoker 2022-07-25 00:00:00 2022-07-25 [facility] Ce nter Never Smoker [facility] nter Medications Ordered Filled Start Stop Current Ordering Indication Dosage Frequency Signature Comments Components Source Medication Medication Date Date Medication? Clinician (SIG) Name Name DICLOFENAC Yes [id number] TAKE 1 Univers 75 mg EC 3-07 9100 TABLET BY ity of tablet 00:00: MOUTH IN [place] THE [facility] MORNING Branch AND IN THE EVENING WITH MEALS metFORMIN Yes 1000mg Take 1 Univ ers (GLUCOPHAGE 2-03 tablet ity of ) 1000 mg 09:35: (1,000 mg) [place] tablet 26 by mouth MD daily with [place] breakfast. n Cancer Center INV-(2022- Yes Acute 15mg Take 1 Un donnie 792) 11-14 08-03 lymphoblast tablet (15 i ty of PONATinib 00:00: 04:59 ic mg) by [place] 15 mg 00 :00 leukemia, mouth MD tablet in every Anderso remission other day n for 180 Cancer days. [facility] LORazepam 2022- No Acute .5mg Take 1 Univ ers (Ativan) 11-14 02 lymphoid tablet ity of 0.5 mg 00:00: 05:59 leukemia (0.5 mg) [place] tablet 00 :00 by mouth MD once for 1 [place] dose. Take n prior to Cancer bone Center marrow biopsy cefPODoxime Yes Urinary 200mg Take 1 Univers (VANTIN) 11-01 tract tablet ity of 200 mg 00:00: infection, (200 mg) [place] tablet 00 not by mouth MD otherwise twice [place] specified daily. n [facility] ciprofloxac 2022- No Urinary 500mg Take 1 Univers in HCl 11-01 tract tablet ity of (CIPRO) 500 00:00: 05:59 infection, (500 mg) [place] mg tablet 00 :00 not by mouth MD otherwise every 12 Tc o specified (twelve) n hours for Cancer 5 days. [facility] diclofenac Yes [id number] 75mg Take 1 Univers 75 mg EC 1- 9100 tablet by ity of tablet 00:00: mouth in [address] morning Branch and 1 tablet in the evening. Take with meals. diclofenac Yes [id number] 75mg Take 1 Univers 75 mg EC 1- 9100 tablet by ity of tablet 00:00: mouth in [place] 00 the Medical morning Branch and 1 tablet in the evening. Take with meals. diclofenac 2022-0 Yes [id number] 75mg Take 1 Univers 75 mg EC 1-12 9100 tablet by ity of tablet 00:00: mouth in [place] 00 the Medical morning Branch and 1 tablet in the evening. Take with meals. diclofenac 2022-0 Yes [id number] 75mg Take 1 Univers 75 mg EC 1-12 9100 tablet by ity of tablet 00:00: mouth in [place] 00 the Medical morning Branch and 1 tablet in the evening. Take with meals. diclofenac 2022-0 Yes [id number] 75mg Take 1 Univers 75 mg EC 1-12 9100 tablet by ity of tablet 00:00: mouth in [place] 00 the Medical morning Branch and 1 tablet in the evening. Take with meals. diclofenac 2022-0 Yes [id number] 75mg Take 1 Univers 75 mg EC 1-12 9100 tablet by ity of tablet 00:00: mouth in [place] 00 the Medical morning Branch and 1 tablet in the evening. Take with meals. diclofenac 2022-2022- No [id number] 75mg Take 1 Univers 75 mg EC 1-12 03-07 9100 tablet by ity o f tablet 00:00: 00:00 mouth in [place] 00 :00 the Medical morning Branch and 1 tablet in the evening. Take with meals. metFORMIN 2021-10 Yes 1000mg Take 1,000 Univers (GLUCOPHAGE 1-04 mg by ity of ) 1000 mg 10:59: mouth 2 [place] tablet 00 (two) MD times a Anderso day with n meals. [facility] omeprazole 2021-10- No 20mg Take 20 mg Univers (PriLOSEC) 10-15 by mouth ity of 20 mg 10:58: 00:00 every [place] capsule 57 :00 morning MD before Anderso breakfast. [facility] omeprazole 2021-10- No 20mg Take 20 mg Univers (PriLOSEC) 10-15 by mouth ity of 20 mg 10:58: 00:00 every [place] capsule 57 :00 morning MD before Anderso breakfast. [facility] INV-(2021-10- No Acute 15mg Take 1 Un donnie 792) 10-15 02-03 lymphoblast tablet (15 i ty of PONATinib 00:00: 05:59 ic mg) by [place] 15 mg 00 :00 leukemia, mouth MD tablet in daily for Anderso remission [address] [facility] INV-(2021-10- No Acute 15mg Take 1 Un donnie 792) 10-1503 lymphoblast tablet (15 i ty of PONATinib 00:00: 05:59 ic mg) by [place] 15 mg 00 :00 leukemia, mouth MD tablet in daily for Anderso remission [address] [facility] metoprolol Yes 37.5mg Take 1 Uni vers tartrate 8-16 tablet ity of (LOPRESSOR) 00:00: (37.5 mg) [place] 37.5 mg tab 00 by mouth MD tablet twice Anderso daily. [facility] metoprolol Yes 37.5mg Take 1 Uni vers tartrate 8-16 tablet ity of (LOPRESSOR) 00:00: (37.5 mg) [place] 37.5 mg tab 00 by mouth MD tablet twice Anderso daily. [facility] INV-(2021- No Acute 15mg Take 1 Un donnie 792) 05-16 lymphoblast tablet (15 i ty of PONATinib 00:00: 04:59 ic mg) by [place] 15 mg 00 :00 leukemia, mouth MD tablet in daily for Anderso remission [address] [facility] INV-(2021- No Acute 15mg Take 1 Un donnie 792) 05-16 lymphoblast tablet (15 i ty of PONATinib 00:00: 04:59 ic mg) by [place] 15 mg 00 :00 leukemia, mouth MD tablet in daily for Anderso remission [address] [facility] metFORMIN metFORMIN No 1{table BID metFORMIN HCl [...] 5 mg tablet 00:00: leukemia MG) BY [place] 00 MOUTH AT [facility] rosuvastati Yes Acute TAKE 1 Uni vers n (CRESTOR) 5-11 lymphoid TABLET(5 ity of 5 mg tablet 00:00: leukemia MG) BY [place] 00 MOUTH AT [facility] INV-(2021- No Acute 15mg Take 1 Un donnie 792) 02-14 08-05 lymphoblast tablet (15 i ty of PONATinib 00:00: 04:59 ic mg) by [place] 15 mg 00 :00 leukemia, mouth tablet in daily for Anderso remission [address] [facility] INV-(2021- No Acute 15mg Take 1 Un donnie 792) 02-14-05 lymphoblast tablet (15 i ty of PONATinib 00:00: 04:59 ic mg) by [place] 15 mg 00 :00 leukemia, mouth tablet in daily for Anderso remission [address] [facility] alendronate Yes 1{tbl} Take 1 Un donnie (FOSAMAX) 2-24 tablet by ity o f 70 mg 00:00: mouth once [place] tablet 00 a week. MD Manisha avilez [facility] alendronate 2022- No 1{tbl} Take 1 U nivers (FOSAMAX) 2-24 01-20 tablet by ity of 70 mg 00:00: 00:00 mouth once [place] tablet 00 :00 a week. MD Manisha avilez [facility] Alendronate Alendronate 2021- No Alendronat Sodium 70 Sodium 70 2-24 08-23 e Sodium MG MG 00:00: 00:00 70 MG 00 :00 amLODIPine 2021- No 1{tbl} Take 1 Un donnie (NORVASC) 11-26- tablet by ity of 10 mg 00:00: 00:00 mouth [place] tablet 00 :[address] [facility] amLODIPine 2021- No 1{tbl} Take 1 Un donnie (NORVASC) 11-26- tablet by ity of 10 mg 00:00: 00:00 mouth [place] tablet 00 :00 daily. MD Manisha avilez [facility] meloxicam 2021- No 7.5mg Take 7.5 Un donnie (MOBIC) 7.5 11-15 mg by ity of mg tablet 09:15: 00:00 mouth [place] 07 :[address] [facility] rosuvastati 2021- No Acute 5mg Take 1 Un donnie n (Crestor) 11-15 lymphoid tablet (5 ity of 5 mg tablet 00:00: 00:00 leukemia mg) by [place] 00 :00 mouth at [facility] rosu[facility] 2021- No Acute 5mg Take 1 Un donnie n (Crestor) 11-15 lymphoid tablet (5 ity of 5 mg tablet 00:00: 00:00 leukemia mg) by [place] 00 :00 mouth at MD bedtime. [facility] INV-(2021- No Acute 15mg Take 1 Un donnie 792) 11-15- lymphoblast tablet (15 i ty of PONATinib 00:00: 04:59 ic mg) by [place] 15 mg 00 :00 leukemia, mouth MD tablet in daily for Anderso remission [address] [facility] INV-(2021- No Acute 15mg Take 1 Un donnie 792) 11-15- lymphoblast tablet (15 i ty of PONATinib 00:00: 04:59 ic mg) by [place] 15 mg 00 :00 leukemia, mouth MD tablet in daily for Anderso remission [address] [facility] LORazepam 2020-10- No Acute .5mg Take 1 Univ ers (Ativan) 10-1603 lymphoid tablet ity of 0.5 mg 00:00: 00:00 leukemia (0.5 mg) [place] tablet 00 :00 by mouth once for 1 [place] dose. Take n prior to Cancer bone Center marrow biopsy INV-(2020-10- No Acute 15mg Take 1 Un donnie 792) 1-05 02-04 lymphoblast tablet (15 i ty of PONATinib 00:00: 05:59 ic mg) by [place] 15 mg 00 :00 leukemia, mouth MD tablet in daily for Anderso remission 90 days. n [facility] amLODIPine 2021- No 1{tbl} Take 1 Un donnie (NORVASC) 7-27 -04 tablet by ity of 10 mg 00:00: 00:00 mouth [place] tablet 00 :00 daily. MD Manisha avilez [facility] LORazepam Yes .5mg Take 1 Univer s (Ativan) 5-10 tablet ity of 0.5 mg 00:00: (0.5 mg) [place] tablet 00 by mouth [facility]. [facility] LORazepam 2022- No .5mg Take 1 Unive rs (Ativan) 5-10 01-20 tablet ity of 0.5 mg 00:00: 00:00 (0.5 mg) [place] tablet 00 :[address] [facility] amLODIPine Yes Acute TAKE 1 Univ ers (NORVASC) 5 2-05 lymphoblast TABLET BY ity of mg tablet 00:00: ic MOUTH [place] 00 leukemia, EVERY DAY. in HOLD FOR Anders[place] remission SYSTOLIC n BLOOD Cancer PRESSUE Center LESS THAN 110 MMHG amLODIPine Yes Acute TAKE 1 Univ ers (NORVASC) 5 2-05 lymphoblast TABLET BY ity of mg tablet 00:00: ic MOUTH [place] 00 leukemia, EVERY DAY. in HOLD FOR [place] remission SYSTOLIC n BLOOD [facility] PRESSUE Center LESS THAN 110 [facility] metoprolol 2019-10- No 25mg Take 25 mg Univers tartrate 11-21-06 by mouth ity of 37.5 mg tab 00:00: 00:00 [place] 00 :00 daily. MD Manisha avilez [facility] metoprolol 2019-10- No 25mg Take 25 mg Univers tartrate 11-21- by mouth ity of 37.5 mg tab 00:00: 00:00 twice [place] 00 :[address] [facility] rosuvastati 2019-10- No Acute 5mg Take 1 Un donnie n (Crestor) 10-24 lymphoid tablet (5 ity of 5 mg tablet 00:00: 00:00 leukemia mg) by [place] 00 :00 mouth at MD bedtime. [facility] aspirin 81 2019-0 Yes prevention 81mg Chew 1 Univers mg chewable 2- of tablet (81 it y of tablet 00:00: cerebrovasc mg) daily. [place] 00 tanja PARRISH accident [facility] aspirin 81 2019-0 Yes Acute 81mg Chew 1 Univ ers mg chewable 2- lymphoblast tablet (81 ity of tablet 00:00: ic mg) daily. [place] leukemiaMD in [facility] metoprolol 2021- No hypertensio 25mg Take 1 Univers tartrate 11-11 n tablet (25 ity of (LOPRESSOR) 00:00: 00:00 mg) by [place] 25 mg 00 :00 mouth MD tablet twice [place] daily. n Hold for Cancer systolic Center blood pressure less than 110 mmHg or heart rate less than 55 beats per minute. metoprolol 2021- No hypertensio 25mg Take 1 Univers tartrate 11-11 n tablet (25 ity of (LOPRESSOR) 00:00: 00:00 mg) by [place] 25 mg 00 :00 mouth MD tablet twice [place] daily. n Hold for Cancer systolic Center blood pressure less than 110 mmHg or heart rate less than 55 beats per minute. Protonix 40 Protonix 40 No 1{table QD [...] 500 MG t_with_ HCl 500 MG meals} PONATinib PONATinib No 1{table QD PONATinib HCl [...] 500 MG t_with_ HCl 500 MG meals} Aspirin 81 Aspirin 81 No Aspirin 81 Alendronate Alendronate No Alendronat Sodium 70 Sodium 70 e Sodium MG MG 70 MG PONATinib PONATinib No 1{table QD PONATinib HCl 15 MG HCl 15 MG t} HCl 15 MG Protonix 40 Protonix 40 No 1{table [...] t} in Calcium MG MG 5 MG Losartan Losartan No 1{table QD Losartan Potassium Potassium t} Potassium 100 MG 100 MG 100 MG metFORMIN metFORMIN No 1{table BID metFORMIN HCl 500 MG HCl 500 MG t_with_ HCl 500 MG meals} PONATinib PONATinib No 1{table QD PONATinib HCl 15 MG HCl 15 MG t} HCl 15 MG Alendronate Alendronate No Alendronat Sodium 70 Sodium 70 e Sodium MG MG 70 MG Losartan Losartan No 1{table QD Losartan Potassium Potassium t} Potassium 100 MG 100 MG 100 MG Protonix 40 Protonix 40 No 1{table QD Protonix MG MG t} 40 MG Metoprolol Metoprolol No 1{table BID Metoprolol Tartrate Tartrate t_with_ Tartrate 37.5 MG 37.5 MG food} 37.5 MG Rosuvastati Rosuvastati No 1{table QD Rosuvastat n Calcium 5 n Calcium 5 t} in Calcium MG MG 5 MG amLODIPine amLODIPine No 1{table QD amLODIPine Besylate 10 Besylate 10 t} Besylate MG MG 10 MG Alendronate Alendronate No Alendronat Sodium 70 Sodium 70 e Sodium 70 Omeprazole Omeprazole No QD Omeprazole 20 MG 20 MG 20 MG Aspirin 81 Aspirin 81 No Aspirin 81 Aspirin 81 Aspirin 81 No Aspirin 81 [...] 37.5 MG 37.5 MG food} 37.5 MG Immunizations Ordered Filled Immunization Date Status Comments Sourc e Immunization Name Name Pfizer SARS-CoV-2 2020-11-24 Completed Univer sity of Vaccination (Purple 00:00:00 [facility]) Cancer Center [facility] SARS-CoV-2 2020-11-24 Completed Univer sity of Vaccination (Purple 00:00:00 [facility]) Cancer [employer] Pfizer SARS-CoV-2 2020-11-03 Completed Univer sity of Vaccination (Purple 00:00:00 [facility]) Cancer [employer] [place] Pfizer SARS-CoV-2 2020-11-03 Completed Univer sity of Vaccination (Purple 00:00:00 [facility]) Cancer [facility] [place] Vital Signs Vital Name Observation Time Observation Value Comments Source Systolic blood 2022-10-23 15:39:00 129 mm[Hg] Univer sity of pressure [facility] Diastolic blood 2022-10-23 15:39:00 84 mm[Hg] Unive rsity of pressure [facility] Heart rate 2022-10-23 15:39:00 62 /min Universi ty of [facility] Oxygen saturation in 2022-10-23 15:39:00 98 /min [facility] Arterial blood by [facility] Pulse oximetry Branch Body height 2022-10-23 15:26:00 152.4 cm Universi ty of [facility] Body weight 2022-10-23 15:26:00 67.359 kg Universi ty of [facility] BMI 2022-10-23 15:26:00 29.00 kg/m2 Universi ty [facility] height 2022-07-25 13:00:00 59.0 [in_i] [facility] weight 2022-07-25 13:00:00 150.6 [lb_av] [facility] temperature 2022-07-25 13:00:00 98.6 [degF] [facility] bmi 2022-07-25 13:00:00 30.41 kg/m2 [facility] oximetry 2022-07-25 13:00:00 95 % [facility] respiratory rate 2022-07-25 13:00:00 16 /min Comm on [facility] blood pressure 2022-07-25 13:00:00 137 mm[Hg] [facility] - systolic [facility] blood pressure 2022-07-25 13:00:00 81 mm[Hg] [facility] - diastolic [facility] height 2022-07-25 13:20:00 59.0 [in_i] [facility] weight 2022-07-25 13:20:00 150.6 [lb_av] [facility] temperature 2022-07-25 13:20:00 98.6 [degF] [facility] bmi 2022-07-25 13:20:00 30.41 kg/m2 [facility] oximetry 2022-07-25 13:20:00 95 % [facility] blood pressure 2022-07-25 13:20:00 137 mm[Hg] [facility] - systolic [facility] blood pressure 2022-07-25 13:20:00 81 mm[Hg] [facility] - diastolic [facility] height 2022-04-24 14:20:00 59 [in_i] [facility] weight 2022-04-24 14:20:00 156.0 [lb_av] [facility] - [facility] temperature 2022-04-24 14:20:00 97.6 [degF] [facility] bmi 2022-04-24 14:20:00 31.5 kg/m2 Common S [facility] oximetry 2022-04-24 14:20:00 98 % Common [facility] respiratory rate 2022-04-24 14:20:00 16 /min Comm on [facility] - [facility] blood pressure 2022-04-24 14:20:00 139 mm[Hg] [facility] - systolic [facility] blood pressure 2022-04-24 14:20:00 86 mm[Hg] Common [facility] - diastolic [facility] height 2021-12-05 13:40:00 59 [in_i] Common S [facility] weight 2021-12-05 13:40:00 157.6 [lb_av] Common [facility] temperature 2021-12-05 13:40:00 97.6 [degF] Common S pirit [facility] bmi 2021-12-05 13:40:00 31.83 kg/m2 [facility] 2021-12-05 13:40:00 96 % Common S pirit [facility] blood pressure 2021-12-05 13:40:00 139 mm[Hg] Common [facility] - systolic [facility] blood pressure 2021-12-05 13:40:00 72 mm[Hg] [facility] - diastolic [facility] height 2021-07-19 14:40:00 59 [in_i] [facility] weight 2021-07-19 14:40:00 151.4 [lb_av] [facility] temperature 2021-07-19 14:40:00 98.2 [degF] [facility] bmi 2021-07-19 14:40:00 30.58 kg/m2 [facility] oximetry 2021-07-19 14:40:00 96 % [facility] respiratory rate 2021-07-19 14:40:00 17 /min Comm on [facility] blood pressure 2021-07-19 14:40:00 138 mm[Hg] [facility] systolic [facility] blood pressure 2021-07-19 14:40:00 77 mm[Hg] [facility] diastolic [facility] WEIGHT 2021-02-18 14:43:38 69.8 kg WEIGHT 2020-05-18 15:44:33 68.8 kg WEIGHT 2020-05-11 16:18:35 68.3 kg WEIGHT 2020-05-04 16:19:26 68.2 kg WEIGHT 2020-04-27 14:47:00 67.8 kg WEIGHT 2020-04-20 12:42:13 67.8 kg WEIGHT 2020-04-06 00:00:00 67.5 kg Systolic blood 2022-11-14 17:57:00 127 mm[Hg] Univer sity of pressure José Miguel Montez on [facility] Diastolic blood 2022-11-14 17:57:00 85 mm[Hg] Unive rsity of pressure José Miguel Montez on [facility] Heart rate 2022-11-14 17:57:00 130 /min Universi ty of José Miguel Montez on [facility] Body temperature 2022-11-14 15:19:45 36.5 Michelle Univ ersity of José Miguel Montez on [facility] Respiratory rate 2022-11-14 15:19:45 17 /min Univ ersity Cade Montez on [facility] Body weight 2022-11-14 15:19:45 66.9 kg Universi ty of José Miguel Montez on [facility] BMI 2022-11-14 15:19:45 28.96 kg/m2 [facility] [place] [facility] on [facility] Oxygen saturation in 2022-11-14 15:19:45 95 /min University of Arterial blood by José Miguel alejo Pulse oximetry [facility] Body height 2022-10-30 00:22:00 152 cm [facility] [place] MD Montez on [facility] Systolic blood 2022-08-15 14:53:48 137 mm[Hg] Univer sity of pressure [place] MD Montez on [facility] Diastolic blood 2022-08-15 14:53:48 83 mm[Hg] Unive rsity of pressure [place] MD Montez on [facility] Heart rate 2022-08-15 14:53:48 98 /min Universi ty [facility] MD Montez on [facility] Body temperature 2022-08-15 14:53:[address] [address] [facility] Respiratory rate 2022-08-15 14:53:48 18 /min [facility] Body weight 2022-08-15 14:53:48 67.8 kg Universi ty [facility] MD Montez on [facility] BMI 2022-08-15 14:53:48 29.35 kg/m2 [facility] [place] MD Montez on [facility] Oxygen saturation in 2022-08-15 14:53:48 94 /min University of Arterial blood by José Miguel alejo Pulse oximetry [facility] Procedures Procedure Date / Time Performing Clinician Source Performed HP CG BCR/ABL1 T(9;22) 2022-11-14 18:07:00 Dhara Gonzalez [facility] FISH COLLECTION, NONBLOOD Lindsay PARRISH [facility] ADAPTIVE CLONOSEQ-SEND 2022-11-14 18:07:00 Dhara Gonzalez [facility] OUT, BONE MARROW Lindsay PARRISH [facility] HP FC FLOW CYTOMETRY BLOOD 2022-11-14 18:07:00 [facility]chard [facility] CYTOGENETICS BLOOD 2022-11-14 18:07:00 Shiraz Pritchard [facility] CG BCR/ABL1 T(9;22) 2022-11-14 18:07:00 Shiraz Pritchard [facility] FISH INTERPRETATION AND MD Pasha larry Cancer REPORT Center HP FC MRD B ALL 2022-11-14 18:07:00 Shiraz Pritchard [facility] INTERPRETATION AND REPORT And [facility] DE DIAGNOSTIC BONE MARROW 2022-11-14 18:03:31 Sumeet Gonzalez, [facility] [place] ASPIRATIONS Lindsay PARRISH [facility] HEMATOPATHOLOGY BONE 2022-11-14 17:50:[address] [facility] MARROW INTERPRETATION MD Manisha avilez [facility] HEMATOPATHOLOGY BONE 2022-11-14 17:50:[address] [facility] MARROW DIFFERENTIAL [facility] CLOT EXPIRATION DATE 2022-11-14 13:59:00 Shiraz Pritchard [facility] PERIPHERAL SMEAR FOR BONE 2022-11-14 13:59:[address] [facility] MARROW [facility] TOTAL PROTEIN 2022-11-14 13:59:00 Sumeet Gonzalez [facility] ALBUMIN LEVEL 2022-11-14 13:59:00 Sumeet Gonzalez [facility] CALCIUM LEVEL TOTAL 2022-11-14 13:59:00 Sumeet Gonzalez [facility] PHOSPHORUS LEVEL 2022-11-14 13:59:00 Sumeet Gonzalez [facility] GLUCOSE, RANDOM 2022-11-14 13:59:00 Sumeet Gonzalez [facility] BLOOD UREA NITROGEN 2022-11-14 13:59:00 Sumeet Gonzalez [facility] SERUM CREATININE 2022-11-14 13:59:00 Sumeet Gonzalez [facility] URIC ACID 2022-11-14 13:59:00 Sumeet Gonzalez [facility] FRACTIONATED BILIRUBIN 2022-11-14 13:59:00 Dhara Gonzalez [facility] ALKALINE PHOSPHATASE 2022-11-14 13:59:00 Sumeet Gonzalez [facility] LACTATE DEHYDROGENASE 2022-11-14 13:59:00 Sumeet Gonzalez [facility] ALANINE AMINOTRANSFERASE 2022-11-14 13:59:00 Sumeet Gonzalez [facility] ELECTROLYTE PANEL 2022-11-14 13:59:00 Sumeet Gonzalez, [facility] MAGNESIUM LEVEL 2022-11-14 13:59:00 Sumeet Gonzalez, [facility] IMMUNOGLOBULIN A SERUM 2022-11-14 13:59:00 Sumeet Gonzalez, [facility] IMMUNOGLOBULIN M SERUM 2022-11-14 13:59:00 Sumeet Gonzalez, [facility] IMMUNOGLOBULIN G SERUM 2022-11-14 13:59:00 Sumeet Gonzalez, [facility] er Center TYPE AND SCREEN 2022-11-14 13:59:00 Sumeet Gonzalez, [facility] COMPLETE BLOOD COUNT W/ 2022-11-14 13:59:00 Sumeet Gonzalez, [facility] DIFFERENTIAL [facility] AMYLASE LEVEL 2022-11-14 13:59:00 [facility] TRYPT[facility] TOTAL 2022-11-14 13:59:00 [facility] LIPASE LEVEL 2022-11-14 13:59:00 Marysol Allen [facility] er Center TRIGLYCERIDES 2022-11-14 13:59:00 Marysol Allen [facility] [place] Results CBC 2022-11-14 13:59:00 Shiraz Pritchard [facility] er Center MANUAL DIFFERENTIAL 2022-11-14 13:59:00 Shiraz Pritchard [facility] er Center SERUM CREATININE 2022-11-14 13:59:00 Shiraz Pritchard [facility] .GLOMERULAR FILTRATION 2022-11-14 13:59:00 Shiraz Pritchard [facility] RATE [facility] ABORH 2022-11-14 13:59:00 Shiraz Pritchard o f [facility] ANTIBODY SCREEN 2022-11-14 13:59:00 Shiraz Pritchard [place] o [facility] HP MD T(9;22) BCR/ABL1 2022-11-14 13:59:00 Marysol Allen [facility] QUANTITATIVE PCR [facility] INTERPRETATION AND REPORT Center TMP INTERPRETATION 2022-11-14 13:59:00 Shiraz Pritchard [facility] ANTIBODY SCREEN NEGATIVE MD Ibarra [facility] EXTERNAL PROVIDER RECORDS 2022-11-05 06:01:00 Doctor Unassigned, [facility] COMPLETE BLOOD COUNT W/ 2022-10-31 07:57:00 Leisa Chapa [facility] DIFFERENTIAL [facility] GLUCOSE, RANDOM 2022-10-31 07:57:00 Leisa Chapa [facility] CALCIUM LEVEL TOTAL 2022-10-31 07:57:00 Leisa Chapa [facility] BLOOD UREA NITROGEN 2022-10-31 07:57:00 Leisa Chapa [facility] SERUM CREATININE 2022-10-31 07:57:00 Leisa Chapa [facility] ity [facility] SODIUM LEVEL 2022-10-31 07:57:[address] [facility] ty [facility] POTASSIUM LEVEL 2022-10-31 07:57:00 [facility] MAGNESIUM LEVEL 2022-10-31 07:57:00 [facility] CHLORIDE LEVEL 2022-10-31 07:57:00 Le[facility] Chap[facility] CARBON DIOXIDE LEVEL 2022-10-31 07:57:00 Leisa Chapa [facility] TOTAL PROTEIN 2022-10-31 07:57:00 Leisa Chapa [facility] ALBUMIN LEVEL 2022-10-31 07:57:00 Leisa Chapa [facility] PHOSPHORUS LEVEL 2022-10-31 07:57:00 Leisa Chapa [facility] FRACTIONATED BILIRUBIN 2022-10-31 07:57:00 Leisa Chapa [facility] ALKALINE PHOSPHATASE 2022-10-31 07:57:00 Leisa Chapa [facility] ALANINE AMINOTRANSFERASE 2022-10-31 07:57:00 Leisa Chapa [facility] ASPARTATE AMINOTRANSFERASE 2022-10-31 07:57:00 Leisa Chapa [facility] URIC ACID 2022-10-31 07:57:00 Leisa Chapa [facility] Results CBC 2022-10-31 07:57:00 Leisa Chapa [facility] MANUAL DIFFERENTIAL 2022-10-31 07:57:00 Leisa Chapa [facility] SERUM CREATININE 2022-10-31 07:57:00 Leisa Chapa [facility] .GLOMERULAR FILTRATION 2022-10-31 07:57:00 Leisa Chapa [facility] RATE [facility] ANION GAP 2022-10-31 07:57:00 Leisa Chapa [facility] AMYLASE LEVEL 2022-10-30 18:43:00 [facility] LIPASE LEVEL 2022-10-30 18:43:00 [facility] COMPLETE BLOOD COUNT W/ 2022-10-30 08:39:00 Leisa Chapa [facility] DIFFERENTIAL [facility] GLUCOSE, RANDOM 2022-10-30 08:39:00 Leisa Chap[facility] CALCIUM LEVEL TOTAL 2022-10-30 08:39:00 Leisa Chapa [facility] BLOOD UREA NITROGEN 2022-10-30 08:39:00 Leisa Chapa [facility] SERUM CREATININE 2022-10-30 08:39:00 Leisa Chapa [facility] SODIUM LEVEL 2022-10-30 08:39:00 Leisa Chap[facility] POTASSIUM LEVEL 2022-10-30 08:39:00 Leisa Chap[facility] MAGNESIUM LEVEL 2022-10-30 08:39:00 Leisa Chap[facility] CHLORIDE LEVEL 2022-10-30 08:39:00 Leisa Chap[facility] CARBON DIOXIDE LEVEL 2022-10-30 08:39:00 Leisa Chapa [facility] TOTAL PROTEIN 2022-10-30 08:39:00 Leisa Chap[facility] ALBUMIN LEVEL 2022-10-30 08:39:00 Leisa Chap[facility] PHOSPHORUS LEVEL 2022-10-30 08:39:00 Leisa Chapa [facility] FRACTIONATED BILIRUBIN 2022-10-30 08:39:00 [facility] ALKALINE PHOSPHATASE 2022-10-30 08:39:00 Leisa Chapa Uni [facility] ALANINE AMINOTRANSFERASE 2022-10-30 08:39:00 Leisa Chapa [facility] ASPARTATE AMINOTRANSFERASE 2022-10-30 08:39:00 Leisa Chapa [facility] URIC ACID 2022-10-30 08:39:00 Leisa Chapa Universi ty [facility] PROTHROMBIN TIME 2022-10-30 08:39:00 Leisa Chapa ity [facility] APTT 2022-10-30 08:39:00 Leisa Chapa Universi ty [facility] D DIMER 2022-10-30 08:39:00 Leisa Chapa Universi ty [facility] FIBRINOGEN ACTIVITY 2022-10-30 08:39:[address] [facility] TYPE AND SCREEN 2022-10-30 08:39:00 Leisa Chapa Universi ty [facility] Results CBC 2022-10-30 08:39:00 Leisa Chapa Universi ty [facility] MANUAL DIFFERENTIAL 2022-10-30 08:39:00 Leisa Chapa [facility] SERUM CREATININE 2022-10-30 08:39:00 Leisa Chapa [facility] .GLOMERULAR FILTRATION 2022-10-30 08:39:[address] [facility] R[facility] ABORH 2022-10-30 08:39:00 Leisa Chapa Universi ty [facility] ANTIBODY SCREEN 2022-10-30 08:39:00 Leisa Chapa Universi ty [facility] ANION GAP 2022-10-30 08:39:00 Leisa Chapa Universi ty [facility] CLOT EXPIRATION DATE 2022-10-30 08:39:00 Leisa [facility] TMP INTERPRETATION 2022-10-30 08:39:[address] [facility] ANTIBODY SCREEN NEGATIVE MD Ibarra [facility] VRE CULTURE 2022-10-30 02:55:00 Leisa Chapa [facility] COVID-19 (SARS-COV-2) 2022-10-29 22:26:00 Rupal Tabares [facility] ASYMPTOMATIC-LT [facility] URINE CULTURE 2022-10-29 18:12:00 Rayshawn [facility] URINALYSIS WITH 2022-10-29 18:12:00 [facility]CR[facility]IC IF INDICATED MD Ibarra [facility] URINALYSIS MICROSCOPIC 2022-10-29 18:12:00 Rupal Tabares [facility] EXAM [facility] CT ABDOMEN PELVIS W 2022-10-29 18:00:00 Dave Tabaresssica [facility] CONTRAST [facility] COMPLETE BLOOD COUNT W/ 2022-10-29 15:57:00 Dave Tabaresssica [facility] DIFFERENTIAL [facility] COMPREHENSIVE METABOLIC 2022-10-29 15:57:00 Dave Tabaresssica [facility] PANEL [facility] MAGNESIUM LEVEL 2022-10-29 15:57:00 Rayshawn [facility] PHOSPHORUS LEVEL 2022-10-29 15:57:00 Rayshawn [facility] LACTATE DEHYDROGENASE 2022-10-29 15:57:[address] [facility] AMYLASE LEVEL 2022-10-29 15:57:00 Rayshawn [facility] LIPASE LEVEL 2022-10-29 15:57:00 Rayshawn [facility] Results CBC 2022-10-29 15:57:00 Rayshawn [facility] MANUAL DIFFERENTIAL 2022-10-29 15:57:00 Rayshawn Rupal [facility] GLUCOSE LEVEL 2022-10-29 15:57:00 Rayshawn [facility] BLOOD UREA NITROGEN 2022-10-29 15:57:00 Rayshawn [facility] ELECTROLYTE PANEL 2022-10-29 15:57:00 Rupal Tabares [facility] SERUM CREATININE 2022-10-29 15:57:00 Rayshawn [facility] .GLOMERULAR FILTRATION 2022-10-29 15:57:[address] RATE [facility] CALCIUM LEVEL TOTAL 2022-10-29 15:57:00 Rupal Tabares [facility] ALBUMIN LEVEL 2022-10-29 15:57:00 Dave Tabaresssica [place] o [facility] ALKALINE PHOSPHATASE 2022-10-29 15:57:00 Rupal Tabares [facility] ALANINE AMINOTRANSFERASE 2022-10-29 15:57:00 Rupal Tabares [facility] ASPARTATE AMINOTRANSFERASE 2022-10-29 15:57:00 Rupal Tabares [facility] TOTAL PROTEIN 2022-10-29 15:57:00 Rupal Tabares [place] [facility] FRACTIONATED BILIRUBIN 2022-10-29 15:57:00 Rupal Tabares [facility] CONSENT/REFUSAL FOR 2022-10-23 15:20:20 Doctor Unassigned, [facility] DIAGNOSIS AND TREATMENT [facility] TYPE AND SCREEN 2022-08-15 13:48:00 Marysol Allen [facility] COMPLETE BLOOD COUNT W/ 2022-08-15 13:48:[address] [facility] DIFFERENTIAL [facility] TOTAL PROTEIN 2022-08-15 13:48:00 Marysol Allen [facility] ALBUMIN LEVEL 2022-08-15 13:48:00 Marysol Allen [facility] CALCIUM LEVEL TOTAL 2022-08-15 13:48:[address] [facility] PHOSPHORUS LEVEL 2022-08-15 13:48:00 Marysol Allen [facility] GLUCOSE, RANDOM 2022-08-15 13:48:00 Marysol Allen [facility] BLOOD UREA NITROGEN 2022-08-15 13:48:[address] [facility] SERUM CREATININE 2022-08-15 13:48:00 Marysol Allen [facility] URIC ACID 2022-08-15 13:48:00 Marysol Allen [facility] FRACTIONATED BILIRUBIN 2022-08-15 13:48:00 Marysol Allen [facility] ALKALINE PHOSPHATASE 2022-08-15 13:48:00 Marysol Allen [facility] LACTATE DEHYDROGENASE 2022-08-15 13:48:00 Marysol Allen [facility] ALANINE AMINOTRANSFERASE 2022-08-15 13:48:00 Marysol Allen [facility] ELECTROLYTE PANEL 2022-08-15 13:48:00 Marysol Allen [facility] MAGNESIUM LEVEL 2022-08-15 13:48:00 Marysol Allen [facility] ASPARTATE AMINOTRANSFERASE 2022-08-15 13:48:00 Marysol Allen [facility] AMYLASE LEVEL 2022-08-15 13:48:00 Marysol Allen [facility] LIPASE LEVEL 2022-08-15 13:48:00 Marysol Allen [facility] TRIGLYCERIDES 2022-08-15 13:48:00 Marysol Allen [facility] ABORH 2022-08-15 13:48:00 Marysol Allen [facility] ANTIBODY SCREEN 2022-08-15 13:48:00 Marysol Allen [facility] Results CBC 2022-08-15 13:48:00 Marysol Allen [facility] MANUAL DIFFERENTIAL 2022-08-15 13:48:[address] [facility] SERUM CREATININE 2022-08-15 13:48:00 Marysol Allen [facility] .GLOMERULAR FILTRATION 2022-08-15 13:48:00 Marysol Allen [facility] RATE [facility] CLOT EXPIRATION DATE 2022-08-15 13:48:00 Marysol [facility] TMP INTERPRETATION 2022-08-15 13:48:[address] [facility] ANTIBODY SCREEN NEGATIVE MD Ibarra [facility] HP MD T(9;22) BCR/ABL1 2022-05-16 12:33:00 Abiola Rosales [facility] QUANTITATIVE PCR [facility], BLOOD Center TOTAL PROTEIN 2022-05-16 12:33:00 Abiola Rosales [facility] ALBUMIN LEVEL 2022-05-16 12:33:00 Abiola Rosales [facility] CALCIUM LEVEL TOTAL 2022-05-16 12:33:00 Abiola Rosales [facility] PHOSPHORUS LEVEL 2022-05-16 12:33:00 Abiola Rosales [facility] GLUCOSE, RANDOM 2022-05-16 12:33:00 Abiola Rosales [facility] BLOOD UREA NITROGEN 2022-05-16 12:33:00 Abiola Rosales [facility] SERUM CREATININE 2022-05-16 12:33:00 Abiola Rosales [facility] URIC ACID 2022-05-16 12:33:00 Abiola Rosales [facility] FRACTIONATED BILIRUBIN 2022-05-16 12:33:00 Abiola Rosales [facility] ALKALINE PHOSPHATASE 2022-05-16 12:33:00 Abiola Rosaleser [facility] LACTATE DEHYDROGENASE 2022-05-16 12:33:00 Abiola [facility]ales[facility] ALANINE AMINOTRANSFERASE 2022-05-16 12:33:00 Abiola Rosales [facility] ELECTROLYTE PANEL 2022-05-16 12:33:00 Abiola Rosales [facility] MAGNESIUM LEVEL 2022-05-16 12:33:00 Abiola Rosales [facility] IMMUNOGLOBULIN A SERUM 2022-05-16 12:33:[address] [facility] IMMUNOGLOBULIN M SERUM 2022-05-16 12:33:[address] [facility] IMMUNOGLOBULIN G SERUM 2022-05-16 12:33:00 Abiola Rosales [facility] TYPE AND SCREEN 2022-05-16 12:33:00 Abiola Rosales [facility] COMPLETE BLOOD COUNT W/ 2022-05-16 12:33:[address] [facility] DIFFERENTIAL [facility] SERUM CREATININE 2022-05-16 12:33:00 Abiola Rosales [facility] .GLOMERULAR FILTRATION 2022-05-16 12:33:00 Abiola Rosales [facility] RATE [facility] Results CBC 2022-05-16 12:33:00 Abiola Rosales [facility] MANUAL DIFFERENTIAL 2022-05-16 12:33:00 Abiola Rosales [facility] ABORH 2022-05-16 12:33:00 Abiola Rosales [facility] ANTIBODY SCREEN 2022-05-16 12:33:00 Abiola Rosales [facility] HP MD T(9;22) BCR/ABL1 2022-05-16 12:33:00 Rosales, Abioal C [facility] QUANTITATIVE PCR [facility] cer INTERPRETATION AND REPORT Center TMP INTERPRETATION 2022-05-16 12:33:00 Abiola Rosales [facility] ANTIBODY SCREEN NEGATIVE MD Ibarra [facility] CLOT EXPIRATION DATE 2022-05-16 12:33:00 Abiola Rosales [facility] HEMATOPATHOLOGY BONE 2022-02-14 19:38:[address] [facility] MARROW INTERPRETATION MD Manisha avilez [facility] HEMATOPATHOLOGY BONE 2022-02-14 19:38:[address] [facility] MARROW DIFFERENTIAL [facility] HP FC MRD B ALL 2022-02-14 19:36:00 Marysol Allen [facility] COLLECTION, NONOOD [facility] HP CG BCR/ABL1 T(9;22) 2022-02-14 19:36:00 Marysol Allen [facility] FISH COLLECTION, [facility] And [facility] HP T(9;22) BCR/ABL1 2022-02-14 19:36:00 Marysol Allen [facility] QUANTITATIVE PCR [facility] COLLECTION, [facility] HP NOTCH1 - EXONS 26, 2022-02-14 19:36:00 Marysol Allen [facility] 27, 34 COLLECTION, [facility] ancer [facility] HP TP53 COLLECTION, 2022-02-14 19:36:00 Marysol Allen [facility] HP CG CHROMOSOME ANALYSIS 2022-02-14 19:36:00 Marysol Allen [facility] COLLECTION, NONOOD [facility] ADAPTIVE CLONOSEQ-SEND 2022-02-14 19:36:00 Abiola Rosales [facility] OUT, BONE MARROW [facility] HP CYTOGENETICS BLOOD 2022-02-14 19:36:00 Marysol Allen [facility] COLLECTION [facility] HP CG CHROMOSOME ANALYSIS 2022-02-14 19:36:00 Marysol Allen [facility] INTERPRETATION AND REPORT AL And [facility] HP CG BCR/ABL1 T(9;22) 2022-02-14 19:36:00 Marysol Allen [facility] FISH INTERPRETATION AND MD Pasha larry Cancer REPORT Center HP FC FLOW CYTOMETRY BLOOD 2022-02-14 19:36:00 Marysol Allen [facility] COLLECTION [facility] HP MOLECULAR BLOOD 2022-02-14 19:36:[address] [facility] COLLECTION [facility] HP MD T(9;22) BCR/ABL1 2022-02-14 19:36:00 Marysol Allen [facility] QUANTITATIVE PCR [facility] INTERPRETATION AND REPORT Center HP FC MRD B ALL 2022-02-14 19:36:00 Marysol Allen [facility] INTERPRETATION AND REPORT MD And [facility] [place] DE DIAGNOSTIC BONE MARROW 2022-02-14 19:22:16 Marysol Allen [facility] ASPIRATIONS [facility] PERIPHERAL SMEAR FOR BONE 2022-02-14 12:55:00 Marysol Allen [facility] MARROW [facility] TYPE AND SCREEN 2022-02-14 12:55:00 Marysol Allen [facility] COMPLETE BLOOD COUNT W/ 2022-02-14 12:55:[address] Mary[address] [facility] DIFFERENTIAL [facility] TOTAL PROTEIN 2022-02-14 12:55:00 Marysol Allen [facility] ALBUMIN LEVEL 2022-02-14 12:55:00 Marysol Allen [facility] CALCIUM LEVEL TOTAL 2022-02-14 12:55:[address] [facility] PHOSPHORUS LEVEL 2022-02-14 12:55:00 Marysol Allen [facility] GLUCOSE, RANDOM 2022-02-14 12:55:00 Marysol Allen [facility] BLOOD UREA NITROGEN 2022-02-14 12:55:[address] [facility] SERUM CREATININE 2022-02-14 12:55:00 Marysol Allen [facility] URIC ACID 2022-02-14 12:55:00 Marysol Allen [facility] FRACTIONATED BILIRUBIN 2022-02-14 12:55:00 Marysol Allen [facility] ALKALINE PHOSPHATASE 2022-02-14 12:55:[address] [facility] LACTATE DEHYDROGENASE 2022-02-14 12:55:00 Marysol Allen [facility] ALANINE AMINOTRANSFERASE 2022-02-14 12:55:00 Marysol [facility] ELECTROLYTE PANEL 2022-02-14 12:55:00 Marysol Alleni [facility] MAGNESIUM LEVEL 2022-02-14 12:55:00 Marysol Allen [facility] AMYLASE LEVEL 2022-02-14 12:55:00 Marysol Allen [facility] LIPASE LEVEL 2022-02-14 12:55:00 Marysol Allen [facility] TRIGLYCERIDES 2022-02-14 12:55:00 Marysol Allen [facility] Results CBC 2022-02-14 12:55:00 Marysol Allen [facility] MANUAL DIFFERENTIAL 2022-02-14 12:55:[address] [facility] CREATININE 2022-02-14 12:55:00 Marysol Allen [facility] .GLOMERULAR FILTRATION 2022-02-14 12:55:00 Marysol Allen [facility] RATE [facility] ABORH 2022-02-14 12:55:00 Marysol Allen [facility] ANTIBODY SCREEN 2022-02-14 12:55:00 Marysol Allen [facility] CLOT EXPIRATION DATE 2022-02-14 12:55:00 Marysol Allen [facility] TMP INTERPRETATION 2022-02-14 12:55:[address] [facility] ANTIBODY SCREEN NEGATIVE MD Ibarra [facility] HP MD T(9;22) BCR/ABL1 2021-11-15 14:22:00 Marysol Allen [facility] QUANTITATIVE PCR [facility], BLOOD Center TOTAL PROTEIN 2021-11-15 14:22:00 Marysol Allen [facility] ALBUMIN LEVEL 2021-11-15 14:22:00 Marysol Allen [facility] CALCIUM LEVEL TOTAL 2021-11-15 14:22:[address] [facility] PHOSPHORUS LEVEL 2021-11-15 14:22:00 Marysol Allen [facility] GLUCOSE, RANDOM 2021-11-15 14:22:00 Marysol Allen [facility] BLOOD UREA NITROGEN 2021-11-15 14:22:[address] [facility] SERUM CREATININE 2021-11-15 14:22:00 Marysol Allen [facility] URIC ACID 2021-11-15 14:22:00 Marysol Allen [facility] FRACTIONATED BILIRUBIN 2021-11-15 14:22:00 Marysol Allen [facility] ALKALINE PHOSPHATASE 2021-11-15 14:22:00 Marysol Allen [facility] LACTATE DEHYDROGENASE 2021-11-15 14:22:[address] [facility] ALANINE AMINOTRANSFERASE 2021-11-15 14:22:00 Marysol [facility] ELECTROLYTE PANEL 2021-11-15 14:22:00 Marysol Alleni [facility] MAGNESIUM LEVEL 2021-11-15 14:22:00 Marysol Allen [facility] IMMUNOGLOBULIN A SERUM 2021-11-15 14:22:00 Marysol [facility] IMMUNOGLOBUL[facility] M SERUM 2021-11-15 14:22:00 Marysol Allen Uni versity [facility] IMMUNOGLOBULIN G SERUM 2021-11-15 14:22:00 Marysol [facility] TYPE AND SCREEN 2021-11-15 14:22:00 Marysol Allen [facility] COMPLETE BLOOD COUNT W/ 2021-11-15 14:22:[address] [facility] DIFFERENTIAL [facility] SERUM CREATININE 2021-11-15 14:22:00 [facility] .GLOMERULAR FILTRATION 2021-11-15 14:22:00 Marysol Allen [facility] RATE [facility] Results CBC 2021-11-15 14:22:00 Marysol Allen [facility] MANUAL DIFFERENTIAL 2021-11-15 14:22:[address] [facility] ABORH 2021-11-15 14:22:00 Marysol Allen [facility] ANTIBODY SCREEN 2021-11-15 14:22:00 Marysol Allen [facility] HP MD T(9;22) BCR/ABL1 2021-11-15 14:22:00 Marysol Allen [facility] QUANTITATIVE PCR [facility] INTERPRETATION AND REPORT Center TMP INTERPRETATION 2021-11-15 14:22:[address] [facility] ANTIBODY SCREEN NEGATIVE MD Ibarra [facility] CLOT EXPIRATION DATE 2021-11-15 14:22:00 Marysol Allen [facility] Plan of Care Planned Activity Planned Date Details Comments Source Future Scheduled 2022-12-11 COVID-19 Vaccination [facility] Test 11:00:50 (3 - Pfizer risk MD [facility]) [code = Center COVID-19 Vaccination (3 - Pfizer risk series)] Future Scheduled 2022-10-02 COVID-19 Vaccination [facility] Test 12:37:28 (3 - Pfizer risk MD [facility]) [code = Center COVID-19 Vaccination (3 - Pfizer risk series)] Encounters Start End Encounter Admission Attending Care Care Encounter Source Date/Time Date/Time Type Type Clinicians Facility Department ID 2022-11-12 Outpatient Garcia, STLMLC STLMLC [id number] Common 16:06:01 Elizabeth 23340 [facility] 2022-11-05 Outpatient Kaylan, STLMLC STLMLC [id number] Common 13:26:02 Lupe 28005 [facility] 2022-07-25 Outpatient Nobles, Na STLMLC STLMLC [id number] Common 15:23:01 [facility] 2021-12-05 Outpatient Nobles, Na STLMLC STLMLC [id number] Common 13:03:01 [facility] 2021-11-06 Outpatient Nobles, Na STLMLC STLMLC [id number] 2 Common 13:24:13 [id number] [facility] 2021-11-06 Outpatient STLMLC STLMLC [id number] Common 13:01:24 [id number] [facility] 2021-11-06 Outpatient Kristel, STLMLC STLMLC [id number] Common 12:55:38 Mar 81579 [facility] 2021-11-06 Outpatient Kristel, STLMLC STLMLC [id number] Common 12:11:07 Mar [id number] [facility] 2021-11-06 Outpatient Kristel, STLMLC STLMLC [id number] Common 12:07:25 Mar 23951 [facility] 2021-11-06 Outpatient Kristel, STLMLC [facility] [id number] Common 12:06:11 Mar [id number] [facility] 2020-04-20 Outpatient EMMA CARTER [id number] 13:45:57 Manisha avilez 2022-12-16 2022-12-16 [facility] 1.2.545.790 [id number] Univers 00:00:00 00:00:00 [facility] 350.1.13.10 it y of [place] 4.2.7.2.686 Shaji as ESMER?BLEA [phone] [address] MEDICAL OFFICE BUILDING 2022-11-19 2022-11-19 (TEL) [facility] [id number] Co mmon 00:00:00 00:00:00 [facility] 2022-11-19 2022-11-19 Orders Adele Lutz 1.2.840.1 [id number] Univers 00:00:00 00:00:00 Only Gisell 83761.1.1 ity of 3.412.2.7 [place] .3.996913 .8 [facility] 2022-11-18 2022-11-18 Orders Alejandro 1.2.840.1 [id number] Univers 00:00:00 00:00:00 Only Marysol Avilez 32903.1.1 i ty of 3.412.2.7 [place] .3.680281 .8 [facility] 2022-11-14 2022-11-14 Outpatient IVA PRITCHARD MDA MDA [id number] 10:41:08 23:59:00 SHIRAZ avilez 2022-11-14 2022-11-14 Shiraz Cronin 1.2.840.1 [id number] [facility] 10:41:08 23:59:00 Gurwinder Emmanuel 81790.1.1 ity of 3.412.2.7 [place] .3.205164 .8 [facility] 2022-11-14 2022-11-14 Outpatient IVA PRITCHARD MDA MDA [id number] 07:46:25 10:40:00 SHIRAZ avilez 2022-11-14 2022-11-14 [facility] Short, 1.2.840.1 [id number] Univers 07:46:25 10:40:00 Encounter Shiraz 13814.1.1 i ty of 3.412.2.7 [place] .3.355945 MD Allen [facility] 2022-11-14 2022-11-14 Follow-Up Short, 1.2.840.1 [id number] Univers 09:30:00 09:45:00 Shiraz 02194.1.1 ity of 3.412.2.7 [place] .3.179797 MD Allen [facility] 2022-11-14 2022-11-14 Outpatient [facility] [id number] 08:57:31 08:57:31 SHIRAZ avilez 2022-11-14 2022-11-14 Serafin Allen, 1.2.840.1 [id number] Univers 00:00:00 00:00:00 Marysol Avilez 29083.1.1 i ty of 3.412.2.7 [place] .3.705760 MD Allen [facility] 2022-11-14 2022-11-14 Lorie Gonzalez 1.2.840.1 [id number] Univers 00:00:00 00:00:00 Only Mariaa 62660.1.1 ity of 3.412.2.7 [place] .3.165038 MD Allen [facility] 2022-11-14 2022-11-14 Travel 1.2.840.1 1.2.808.172 [id number] Univers 00:00:00 00:00:00 63659.1.1 350.1.13.41 ity of 3.412.2.7 [place].3.698 [place] .3.429942 084.8 MD Allen [facility] 2022-11-14 2022-11-14 Documentat Carlito, 1.2.840.1 [id number] Univers 00:00:00 00:00:00 ion Jenna 72452.1.1 ity of 3.412.2.7 [place] .3.773212 MD Vásquez8 [facility] 2022-11-14 2022-11-14 Orders Francheska, 1.2.840.1 [id number] Univers 00:00:00 00:00:00 Only Shiraz 94258.1.1 ity of 3.412.2.7 [place] .3.711628 MD Vásquez8 [facility] 2022-11-14 2022-11-14 Orders Carlito 1.2.840.1 [id number] Univers 00:00:00 00:00:00 Only Jenna 40455.1.1 ity of 3.412.2.7 [place] .3.052336 MD Vásquez8 [facility] 2022-11-05 2022-11-05 Orders Doctor MELE 1.2.840.114 [id number] Univers 00:00:00 00:00:00 Only Unassigned, WALTER 350.1.13.10 ity of [place] [facility] 4.2.7.2.686 Shaji as [id number] [place] [address] [place] 2022-11-05 2022-11-05 (TEL) STLMLC STLMLC [id number] Co mmon 00:00:00 00:00:00 [facility] 2022-11-01 2022-11-01 Orders Francheska, 1.2.840.1 [id number] Univers 00:00:00 00:00:00 Only Shiraz 30159.1.1 ity of 3.412.2.7 [place] .3.689698 MD Vásquez8 [facility] 2022-10-29 2022-10-31 Inpatient ER FRANCHESKA, MDA Leukemia [id number] 09:22:00 15:22:00 SHIRAZ avilez 2022-10-29 2022-10-31 [facility] Rupal Tabares 1.2.840.1 [id number] Univers 09:22:00 15:22:00 Encounter Shiraz Pritchard 64439.1.1 ity of 3.412.2.7 [place] .3.958616 MD Vásquez8 [facility] 2022-10-30 2022-10-30 Telephone [facility] 1.2.840.114 [id number] Univers 00:00:00 00:00:00 [facility] 350.1.13.10 it y of [place] 4.2.7.2.686 Shaji as ESMER?BLEA [phone] [address] OFFICE [facility] 2022-10-29 2022-10-29 Travel 1.2.840.1 1.2.465.925 [id number] Univers 00:00:00 00:00:00 75670.1.1 350.1.13.41 ity of 3.412.2.7 2.[place].3.698 [place] .3.021396 08Allyssa8 MD Vásquez8 [facility] 2022-10-23 2022-10-23 Outpatient R [facility] [id number] Univers 09:30:00 10:09:57 KOKO ity of [facility] 2022-10-23 2022-10-23 Office [facility] 1.2.834.834 [id number] Univers 09:30:00 10:09:57 Visit [facility] 350.1.13.10 it y of [place] 4.2.7.2.686 Shaji as ESMER?BLEA [phone] [address] 2022-10-23 2022-10-23 Orders Doctor SHABAZZ 1.2.840.114 [id number] Univers 00:00:00 00:00:00 Only Unassigned, WALTER 350.1.13.10 ity of [place] [facility] 4.2.7.2.686 Shaji as [phone] [address] 2022 2022 Orders Alejandro 1.2.840.1 [id number] Univers 00:00:00 00:00:00 Only Marysol Avilez 99152.1.1 i ty of 3.412.2.7 [place] .3.189877 MD .8 [facility] 2022 2022 Orders Alejandro, 1.2.840.1 [id number] Univers 00:00:00 00:00:00 Only Marysol Raghav 10750.1.1 i ty of 3.412.2.7 [place] .3.641398 MD Vásquez8 [facility] 2022-08-18 2022-08-18 Orders Ramiroumpa, 1.2.840.1 [id number] Univers 00:00:00 00:00:00 Only Mario Holger 78825.1.1 it y of 3.412.2.7 [place] .3.739174 MD Vásquez8 [facility] 2022-08-18 2022-08-18 Orders Eusebio, 1.2.840.1 [id number] Univers 00:00:00 00:00:00 Only Mario Wren 11298.1.1 it y of 3.412.2.7 [place] .3.948821 MD Allen [facility] 2022-08-15 2022-08-15 Hospital [facility], 1.2.840.1 [id number] Univers 08:42:59 23:59:00 Encounter Shiraz 45085.1.1 i ty of 3.412.2.7 [place] .3.798439 MD Allen [facility] 2022-08-15 2022-08-15 [facility] 1.2.840.1 [id number] Univers 08:42:59 23:59:00 Encounter Shiraz 17423.1.1 i ty of 3.412.2.7 [place] .3Fahad901739 MD Vásquez8 [facility] 2022-08-15 2022-08-15 Office [facility], 1.2.840.1 [id number] Univers 11:00:00 11:15:00 Visit Shiraz 35317.1.1 ity of 3.412.2.7 [place] .3Fahad934782 MD Vásquez8 [facility] 2022-08-15 2022-08-15 Office Short, 1.2.840.1 [id number] Univers 11:00:00 11:15:00 Visit Shiraz 16596.1.1 ity of 3.412.2.7 [place] .3.788747 MD Allen [facility] 2022-08-15 2022-08-15 Documentat Delumpa, 1.2.840.1 [id number] Univers 00:00:00 00:00:00 ion Mario M 76027.1.1 it y of 3.412.2.7 [place] .3.971386 MD Allen [facility] 2022-08-15 2022-08-15 Orders Francheska, 1.2.840.1 [id number] Univers 00:00:00 00:00:00 Only Shiraz 52411.1.1 ity of 3.412.2.7 [place] .3.393792 MD Allen [facility] 2022-08-15 2022-08-15 Orders Carlos, 1.2.840.1 [id number] Univers 00:00:00 00:00:00 Only Mariaa 24801.1.1 ity of 3.412.2.7 [place] .3.165437 MD Allen [facility] 2022-08-15 2022-08-15 Travel 1.2.840.1 1.2.347.790 [id number] Univers 00:00:00 00:00:00 87425.1.1 350.1.13.41 ity of 3.412.2.7 2.2.7.3.698 [place] .3.707507 084.8 MD Allen [facility] 2022-08-15 2022-08-15 Documentat [place], 1.2.840.1 [id number] Univers 00:00:00 00:00:00 ion Mario M 23275.1.1 it y of 3.412.2.7 [place] .3.414209 MD Allen [facility] 2022-08-15 2022-08-15 Orders Short, 1.2.840.1 [id number] Univers 00:00:00 00:00:00 Only Shiraz 83031.1.1 ity of 3.412.2.7 [place] .3.923672 MD Allen [facility] 2022-08-15 2022-08-15 Orders Carlos, 1.2.840.1 [id number] Univers 00:00:00 00:00:00 Only Mariaa 98491.1.1 ity of 3.412.2.7 [place] .3.852017 MD Allen [facility] 2022-08-15 2022-08-15 Travel 1.2.840.1 1.2.311.129 [id number] [id number] Univers 00:00:00 00:00:00 20636.1.1 350.1.13.41 ity of 3.412.2.7 2.2.7.3.698 [place] .3.919855 084.8 MD Allen [facility] 2022-07-25 2022-07-25 [facility] [id number] Common 00:00:00 00:00:00 MCR Spirit WELLNESS - CHI VISIT [facility] 2022-07-25 2022-07-25 OFFICE [facility] [id number] Co mmon 00:00:00 00:00:00 VISIT EST Spir it PT LEVEL 3 - CHI [facility] 2022-05-29 2022-05-29 Orders Alejandro, 1.2.840.1 [id number] Univers 00:00:00 00:00:00 Only Marysol Avilez 66751.1.1 i ty of 3.412.2.7 [place] .3.045759 MD Allen [facility] 2022-05-29 2022-05-29 Orders Alejandro, 1.2.840.1 [id number] Univers 00:00:00 00:00:00 Only Marysol Avilez 61565.1.1 i ty of 3.412.2.7 [place] .3.179151 MD Allen [facility] 2022-05-21 2022-05-21 Orders Delumpa, 1.2.840.1 [id number] Univers 00:00:00 00:00:00 Only Mario M 51321.1.1 it y of 3.412.2.7 [place] .3.401546 MD Vásquez8 [facility] 2022-05-21 2022-05-21 Orders Ramiroumpa, 1.2.840.1 [id number] Univers 00:00:00 00:00:00 Only Mario Holger 48793.1.1 it y of 3.412.2.7 [place] .3.298894 MD Vásquez8 [facility] 2022-05-16 2022-05-16 [facility], 1.2.840.1 [id number] Univers 07:29:08 23:59:00 Encounter Abiola Monroe 94634.1.1 it y of 3.412.2.7 [place] .3.533836 MD Vásquez8 [facility] 2022-05-16 2022-05-16 [facility], 1.2.840.1 [id number] Univers 07:29:08 23:59:00 Encounter Abiola C 90566.1.1 it y of 3.412.2.7 [place] .3.344510 MD Vásquez8 [facility] 2022-05-16 2022-05-16 Office IVA Pritchard, 1.2.840.1 [id number] Univers 08:45:00 09:00:00 Visit Shiraz 58283.1.1 ity of 3.412.2.7 [place] .3.470159 MD Vásquez8 [facility] 2022-05-16 2022-05-16 Office Francheska, 1.2.840.1 [id number] Univers 08:45:00 09:00:00 Visit Shiraz 19091.1.1 ity of 3.412.2.7 [place] .3.583644 MD Vásquez8 [facility] 2022-05-16 2022-05-16 Documentat [place], 1.2.840.1 [id number] Univers 00:00:00 00:00:00 ion Mario Wren 79252.1.1 it y of 3.412.2.7 [place] .3.693274 MD Allen [facility] 2022-05-16 2022-05-16 Orders Short, 1.2.840.1 [id number] Univers 00:00:00 00:00:00 Only Shiraz 85810.1.1 ity of 3.412.2.7 [place] .3.757294 MD Allen [facility] 2022-05-16 2022-05-16 Orders Jameulogio, 1.2.840.1 [id number] Univers 00:00:00 00:00:00 Only Selena Russell 70049.1.1 ity of 3.412.2.7 [place] .3.060785 MD Allen [facility] 2022-05-16 2022-05-16 Orders [place]a, 1.2.840.1 [id number] Univers 00:00:00 00:00:00 Only Mario Wren 71418.1.1 it y of 3.412.2.7 [place] .3.251740 MD Allen [facility] 2022-05-16 2022-05-16 Travel 1.2.840.1 1.2.420.656 [id number] Univers 00:00:00 00:00:00 45101.1.1 350.1.13.41 ity of 3.412.2.7 2.2.7.3.698 [place] .3.787667 084.8 MD Allen [facility] 2022-05-16 2022-05-16 Documentat [place], 1.2.840.1 [id number] Univers 00:00:00 00:00:00 ion Mario Wren 81143.1.1 it y of 3.412.2.7 [place] .3.363938 MD Allen [facility] 2022-05-16 2022-05-16 Orders Francheska, 1.2.840.1 [id number] Univers 00:00:00 00:00:00 Only Shiraz 43768.1.1 ity of 3.412.2.7 [place] .3.959582 MD Allen [facility] 2022-05-16 2022-05-16 Orders Anthony, 1.2.840.1 [id number] Univers 00:00:00 00:00:00 Only Selena Drew 22025.1.1 ity of 3.412.2.7 [place] .3.081785 MD Allen [facility] 2022-05-16 2022-05-16 Orders Eusebio, 1.2.840.1 [id number] Univers 00:00:00 00:00:00 Only Mario Wren 25043.1.1 it y of 3.412.2.7 [place] .3.302564 MD Allen [facility] 2022-05-16 2022-05-16 Travel 1.2.840.1 1.2.016.837 [id number] Univers 00:00:00 00:00:00 69121.1.1 350.1.13.41 ity of 3.412.2.7 2.2.7.3.698 [place] .3.665338 084.8 MD Allen [facility] 2022-05-09 2022-05-09 Orders Pierre, 1.2.840.1 [id number] Univers 00:00:00 00:00:00 Only Palomo Soto 02370.1.1 ity of 3.412.2.7 [place] .3.382315 MD Allen [facility] 2022-05-09 2022-05-09 Orders Eusebio, 1.2.840.1 [id number] Univers 00:00:00 00:00:00 Only Mario Wren 95344.1.1 it y of 3.412.2.7 [place] .3.390157 MD Allen [facility] 2022-05-09 2022-05-09 Orders Dipippo, 1.2.840.1 [id number] Univers 00:00:00 00:00:00 Only Palomo Charles 72484.1.1 ity of 3.412.2.7 [place] .3.554955 MD Allen [facility] 2022-05-09 2022-05-09 Orders [place]umpa, 1.2.840.1 [id number] Univers 00:00:00 00:00:00 Only Mario Wren 83381.1.1 it y of 3.412.2.7 [place] .3Fahad546032 MD Allen [facility] 2022-05-01 2022-05-01 ([facility]EL[facility] [id number] Co mmon 00:00:00 00:00:00 Spirit [facility] 2022-04-24 2022-04-24 [facility] [id number] Co mmon 00:00:00 00:00:00 VISIT Spirit [facility] PT - CHI LEVEL 4 [facility] 2022-02-24 2022-02-24 Orders Alejandro, 1.2.840.1 [id number] Univers 00:00:00 00:00:00 Only Marysol N 69990.1.1 i ty of 3.412.2.7 [place] .3.313887 MD Allen [facility] 2022-02-24 2022-02-24 Orders Alejandro, 1.2.840.1 [id number] Univers 00:00:00 00:00:00 Only Marysol N 54873.1.1 i ty of 3.412.2.7 [place] .3.812363 MD Allen [facility] 2022-02-20 2022-02-20 Orders Rosales, 1.2.840.1 [id number] Univers 00:00:00 00:00:00 Only Abiola Monroe 41715.1.1 ity of 3.412.2.7 [place] .3Fahad108151 MD Vásquez8 [facility] 2022-02-20 2022-02-20 Orders Rosales, 1.2.840.1 [id number] Univers 00:00:00 00:00:00 Only Abiola Monroe 50672.1.1 ity of 3.412.2.7 [place] .3.256720 MD Vásquez8 [facility] 2022-02-18 2022-02-18 Reflizzie Allen, 1.2.840.1 [id number] Univers 00:00:00 00:00:00 Marysol N 70647.1.1 i ty of 3.412.2.7 [place] .3.269640 MD Vásquez8 [facility] 2022-02-18 2022-02-18 Orders Rosales, 1.2.840.1 [id number] Univers 00:00:00 00:00:00 Only Abiola Monroe 40579.1.1 ity of 3.412.2.7 [place] .3.030181 MD Vásquez8 [facility] 2022-02-18 2022-02-18 Reflizzie Allen, 1.2.840.1 [id number] Univers 00:00:00 00:00:00 Marysol N 37783.1.1 i ty of 3.412.2.7 [place] .3.330518 MD Vásquez8 [facility] 2022-02-18 2022-02-18 Orders Rosales, 1.2.840.1 [id number] Univers 00:00:00 00:00:00 Only Abiola Monroe 38645.1.1 ity of 3.412.2.7 [place] .3.711029 MD Vásquez8 [facility] 2022-02-14 2022-02-14 [facility] Shiraz Jade 1.2.840.1 [id number] Univers 12:42:48 23:59:00 Encounter Greta Day 34647.1.1 ity of 3.412.2.7 [place] .3.331575 MD Vásquez8 [facility] 2022-02-14 2022-02-14 Shiraz Cronin 1.2.840.1 [id number] Univers 12:42:48 23:59:00 Encounter Greta Day 67036.1.1 ity of 3.412.2.7 [place] .3.539544 MD Vásquez8 [facility] [place] 2022-02-14 2022-02-14 Hospital [facility], 1.2.840.1 [id number] Univers 07:37:36 12:41:00 Encounter Shiraz 04302.1.1 i ty of 3.412.2.7 [place] .3.852607 MD Vásquez8 [facility] [place] 2022-02-14 2022-02-14 [facility], 1.2.840.1 [id number] Univers 07:37:36 12:41:00 Encounter Shiraz 72237.1.1 i ty of 3.412.2.7 [place] .3Fahad299371 MD Allen [facility] [place] 2022-02-14 2022-02-14 Office [facility], 1.2.840.1 [id number] Univers 11:00:00 11:20:00 Visit Shiraz 62587.1.1 ity of 3.412.2.7 [place] .3.587936 MD Allen [facility] [place] 2022-02-14 2022-02-14 [facility], 1.2.840.1 [id number] Univers 11:00:00 11:20:00 Visit Shiraz 52782.1.1 ity of 3.412.2.7 [place] .3Fahad430062 MD Allen [facility] [place] 2022-02-14 2022-02-14 Orders [place], 1.2.840.1 [id number] Univers 00:00:00 00:00:00 Only Mario Wren 50820.1.1 it y of 3.412.2.7 [place] .3.224251 MD Allen [facility] [place] 2022-02-14 2022-02-14 Orders Shay, 1.2.840.1 [id number] Univers 00:00:00 00:00:00 Only Greta Monroe 73228.1.1 ity of 3.412.2.7 [place] .3.125541 MD Allen [facility] 2022-02-14 2022-02-14 Lorie Pritchard, 1.2.840.1 [id number] Univers 00:00:00 00:00:00 Only Shiraz 18213.1.1 ity of 3.412.2.7 [place] .3.967963 MD Allen [facility] 2022-02-14 2022-02-14 Travel 1.2.840.1 1.2.507.573 [id number] Univers 00:00:00 00:00:00 56391.1.1 350.1.13.41 ity of 3.412.2.[place]3.698 [place] .3.305432 084.8 MD Allen [facility] 2022-02-14 2022-02-14 Orders Delfabya, 1.2.840.1 [id number] Univers 00:00:00 00:00:00 Only Mario Wren 01812.1.1 it y of 3.412.2.7 [place] .3.583007 MD [facility] 2022-02-14 2022-02-14 Orders Shay, 1.2.840.1 [id number] Univers 00:00:00 00:00:00 Only Greta Monroe 09196.1.1 ity of 3.412.2.7 [place] .3.445859 MD Allen [facility] 2022-02-14 2022-02-14 Orders Francheska, 1.2.840.1 [id number] Univers 00:00:00 00:00:00 Only Shiraz 46036.1.1 ity of 3.412.2.7 [place] .3.392104 MD Allen [facility] 2022-02-14 2022-02-14 Travel 1.2.840.1 1.2.588.792 [id number] Univers 00:00:00 00:00:00 07996.1.1 350.1.13.41 ity of 3.412.2.7 2.[place].7.3.698 [place] .3.503401 084.8 MD Allen [facility] 2022-02-07 2022-02-07 Telephone Igor, 1.2.840.1 [id number] Univers 00:00:00 00:00:00 Lijo I 39733.1.1 ity of 3.412.2.7 [place] .3.495662 MD Allen [facility] 2022-02-07 2022-02-07 Telephone Igor, 1.2.840.1 [id number] Univers 00:00:00 00:00:00 Lijo I 58185.1.1 ity of 3.412.2.7 [place] .3.034386 MD Allen [facility] 2021-12-05 2021-12-05 [facility] [id number] Co mmon 00:00:00 00:00:00 VISIT Spirit ESTAB PT - CHI LEVEL 4 [facility] 2021-11-15 2021-11-15 Hospital IVA Pritchard, 1.2.840.1 [id number] Univers 08:00:00 23:59:00 Encounter Shiraz 99549.1.1 i ty of 3.412.2.7 [place] .3.698962 MD Allen [facility] 2021-11-15 2021-11-15 Office IVA Pritchard, 1.2.840.1 [id number] Univers 09:40:00 10:00:00 Visit Shiraz 72769.1.1 ity of 3.412.2.7 [place] .3.625203 MD Allen [facility] 2021-11-15 2021-11-15 Documentat , 1.2.840.1 [id number] Univers 00:00:00 00:00:00 ion Ejiroghene 07648.1.1 i ty of D 3.412.2.7 [place] .3.956202 MD .8 [facility] 2021-11-15 2021-11-15 Orders Mayor, 1.2.840.1 [id number] Univers 00:00:00 00:00:00 Only Lorenjil 77099.1.1 i ty of D 3.412.2.7 [place] .3.512250 MD Vásquez8 [facility] 2021-11-15 2021-11-15 Orders Short, 1.2.840.1 [id number] Univers 00:00:00 00:00:00 Only Shiraz 83895.1.1 ity of 3.412.2.7 [place] .3.711674 MD Vásquez8 [facility] 2021-11-15 2021-11-15 Travel 1.2.840.1 1.2.461.035 [id number] Univers 00:00:00 00:00:00 15314.1.1 350.1.13.41 ity of 3.412.2.7 2.[place].7.3.698 [place] .3.828033 084.8 .8 [facility] 2021-10-15 2021-10-15 Serafin Hopper, 1.2.840.1 [id number] Univers 00:00:00 00:00:00 Lyssa 98343.1.1 ity of 3.412.2.7 [place] .3.734642 MD Allen [facility] 2021-08-18 2021-08-18 (TEL) STLMLC STLC [id number] Co mmon 00:00:00 00:00:00 [facility] 2021-08-16 2021-08-16 Outpatient EL SHORT, MDA MDA [id number] 10:20:59 23:59:00 SHIRAZ avilez 2021-08-16 2021-08-16 Outpatient EL SHORT, MDA MDA [id number] 12:17:03 12:17:03 SHIRAZ avilez 2021-08-16 2021-08-16 Outpatient EL SHORT, MDA MDA [id number] 09:52:17 10:19:00 SHIRAZ Pasha so n 2021-08-16 2021-08-16 Outpatient EL SHORT, MDA MDA [id number] 07:54:42 09:51:00 SHIRAZ Pasha so n 2021-08-16 2021-08-16 Outpatient EL SHORT, MDA MDA [id number] 08:49:58 08:49:58 SHIRAZ laureano n 2021-07-19 2021-07-19 Outpatient EL SHORT, MDA MDA [id number] 07:58:15 23:59:00 SHIRAZ laureano n 2021-07-19 2021-07-19 Outpatient EL SHORT, MDA MDA [id number] 07:58:37 07:58:37 SHIRAZ laureano n 2021-07-19 2021-07-19 OFFICE STLC STLC [id number] Co mmon 00:00:00 00:00:00 VISIT EST Spir it PT LEVEL 3 [facility] 2021-05-24 2021-05-24 Outpatient ORAL ARANA MDA MDA [id number] 08:43:19 23:59:00 Tc o raghav 2021-05-24 2021-05-24 Outpatient EL SHORT, MDA MDA [id number] 10:14:57 10:14:57 SHIRAZ Pasha so n 2021-04-22 2021-04-22 (TEL) STLC STLC [id number] Co mmon 00:00:00 00:00:00 [facility] 2021-04-19 2021-04-19 [facility] [id number] Common 00:00:00 00:00:00 [facility] 2021-02-18 2021-02-18 Outpatient EL ORAL PALENCIA MDA MDA [id number] 16:00:00 23:59:00 Tc o n 2021-02-18 2021-02-18 Outpatient EL DANETTE, MDA MDA [id number] 13:09:02 15:59:00 MARTHA mandel n 2021-02-18 2021-02-18 Outpatient EL SHORT, MDA MDA [id number] 14:34:38 15:49:08 SHIRAZ avilez 2021-02-05 2021-02-05 Outpatient STLMLC STLMLC [id number] Common 00:00:00 00:00:00 [facility] 2020-12-04 2020-12-04 Outpatient STLMLC STLMLC [id number] Common 00:00:00 00:00:00 [facility] 2020-11-24 2020-11-24 Outpatient EL SHORT, MDA MDA [id number] 08:35:16 08:54:19 SHIRAZ avilez 2020-11-16 2020-11-16 Outpatient EL DAHL, MDA MDA [id number] 08:35:24 23:59:00 BENJAMIN avilez 2020-11-16 2020-11-16 Outpatient EL SHORT, MDA MDA [id number] 09:53:32 09:53:32 SHIRAZ avilez 2020-11-03 2020-11-03 Outpatient EL TEREFFE, MDA MDA [id number] 09:04:59 09:22:58 DALILA avilez 2020-10-19 2020-10-19 Outpatient STLMLC STLMLC [id number] Common 00:00:00 00:00:00 [facility] 2020-09-21 2020-09-21 Outpatient STLMLC STLMLC [id number] Common 00:00:00 00:00:00 [facility] 2020-09-19 2020-09-19 Outpatient STLMLC STLMLC [id number] Common 00:00:00 00:00:00 [facility] 2020-08-28 2020-08-28 Outpatient STLMLC STLMLC [id number] Common 00:00:00 00:00:00 [facility] 2020-08-24 2020-08-24 Outpatient EL DAHL, MDA MDA [id number] 10:37:58 23:59:00 BENJAMIN avilez 2020-08-24 2020-08-24 Outpatient EL DAHL, MDA MDA [id number] 07:49:41 10:36:00 BENJAMIN avilez 2020-08-24 2020-08-24 Outpatient EL SHORT, MDA MDA [id number] MD 08:56:27 08:56:27 SHIRAZ avilez 2020-07-27 2020-07-27 Outpatient EL DAHL, MDA MDA [id number] MD 08:00:00 23:59:00 BENJAMIN avilez 2020-07-27 2020-07-27 Outpatient EL DAHL, MDA MDA [id number] MD 08:02:52 08:02:52 BENJAMIN avilez 2020-06-01 2020-06-01 Outpatient EL SHORT, MDA MDA [id number] MD 15:02:18 23:59:00 SHIRAZ avilez 2020-06-01 2020-06-01 Outpatient EL ROSALES, MDA MDA [id number] MD 13:00:00 15:01:00 ABIOLA avilez 2020-06-01 2020-06-01 Outpatient EL SHORT, MDA MDA [id number] MD 13:58:11 13:58:11 SHIRAZ avilez 2020-05-18 2020-05-18 Outpatient EL SHORT, MDA MDA [id number] MD 15:30:00 23:59:00 SHIRAZ avilez 2020-05-18 2020-05-18 Outpatient EL LINDSAY, MDA MDA [id number] MD 14:00:00 15:29:00 JENNA avilez 2020-05-11 2020-05-11 Outpatient EL SHORT, MDA MDA [id number] MD 17:06:29 23:59:00 SHIRAZ avilez 2020-05-11 2020-05-11 Outpatient EL SHORT, MDA MDA [id number] MD 15:30:00 17:05:00 SHIRAZ avilez 2020-05-04 2020-05-04 Outpatient EL SHORT, MDA MDA [id number] MD 15:16:48 23:59:00 SHIRAZ avilez 2020-04-27 2020-04-27 Outpatient EL SHORT, MDA MDA [id number] MD 14:09:38 23:59:00 SHIRAZ avilez 2020-04-20 2020-04-20 Outpatient EL DAHL, MDA MDA [id number] MD 09:00:00 23:59:00 BENJAMIN laureano n 2020-04-20 2020-04-20 Outpatient EL DAHL, MDA MDA [id number] MD 12:23:06 22:51:24 BENJAMIN avilez 2020-04-20 2020-04-20 Outpatient EL SHORT, MDA MDA [id number] MD 09:06:53 09:06:53 SHIRAZ Pashajorje avilez 2020-04-20 2020-04-20 Outpatient EL DAHL, MDA MDA [id number] MD 08:30:00 08:59:00 BENJAMIN Pashajorje avilez 2020-04-06 2020-04-06 Outpatient EL SHORT, MDA MDA [id number] MD 12:00:00 23:59:00 SHIRAZ avilez 2020-04-06 2020-04-06 Outpatient EL DAHL, MDA MDA [id number] MD 08:08:54 11:59:00 BENJAMIN Pashajorje avilez 2020-04-06 2020-04-06 Outpatient EL SHORT, MDA MDA [id number] MD 09:27:47 09:27:47 SHIRAZ avilez 2020-04-06 2020-04-06 Outpatient EL DAHL, MDA MDA [id number] MD 08:09:28 08:09:28 BENJAMIN avilez 2020-03-30 2020-03-30 Outpatient EL SHORT, MDA MDA [id number] MD 13:13:36 23:59:00 SHIRAZ avilez 2020-03-23 2020-03-23 Outpatient EL DAHL, MDA MDA [id number] MD 09:00:12 12:40:00 BENJAMIN laureano n Results Test Description Test Time Test Comments Results Result Comments Source Adaptive clonoSEQ-Send out, Bone Marrow 2022-11-19 21:13:20 Test Item Value Reference Range Interpretation Comme nts Adaptive clonoSEQ (test code = Shipped Out Specimen for clonoSEQ testing was 32479) obtained, proce ssed and sent out to the [employer] [address] [facility] [employer] [facility] at[facility].Refer to separate [employer] Portal for resu lts. Testing Indication (test code = MRD-Tracking 98966) [facility] [place] [facility] Cancer JcrvvzCyulkuio1524-40-37 21:16:50 Test Item Value Reference Range Interpretation Comments Tryptase-Calderon (test 3 ng/mL <=11.5 Test Pe rformed by:Calderon code = 52120-8) [facility] Labor atories [facility] [id number] [place], [place] [address] Director: Emiliano Saldana M.D. Ph.D.; CLI A# [id number] [facility] [place] [facility] CampusFlow Cytometry Specimen Collection -Bone [id number] 13:54:07 Test Item Value Reference Range Interpretation Comments Flow Cytometry Yes Test performe d by:The (Received) (test code [facility] MD = 8319) [facility] Cyto metry [address] [place] [address] Nae Ap Link (test [id number] code = 20233) [facility] [place] [facility] CampusIgM2023-02-03 20:13:22 Test Item Value Reference Range Interpretation Comments IgM (test code = 6023) 29 mg/dL 35-242 L Lab Interpretation (test code = Abnormal 41623-4) [facility] [place] [facility] CampusIgG2023-02-03 20:13:21 Test Item Value Reference Range Interpretation Comments IgG (test code = 6001) 632 mg/dL 610-1616 [facility] [place] [facility] CampusIgA2023-02-03 20:13:20 Test Item Value Reference Range Interpretation Comments IgA (test code = 5992) 96 mg/dL 85-499 [facility] [place] [facility] CampusCytogenetics Specimen Collection - Bone [id number] 19:29:32 Test Item Value Reference Range Interpretation Comments Nae Ap Link (test code = 45496) [id number] Cytogenetics (Received) (test code Yes = 8304) [facility] [place] [facility] CampusCG BCR/ABL1 t(9;22) FISH Collection, Ovcjbdqg5289-11-83 19:26:14 Test Item Value Reference Range Interpretation Comments Cytogenetics (Received) (test code = Yes 8304) [facility] [place] [facility] CampusTMP Interpretation Antibody Screen [id number] 18:35:00 Test Item Value Reference Range Interpretation Comments TMP Auto Neg At the present ABSC Interp time, patient (test code = plasma shows no ____[place] [address] [address]) evidence of RBC CORTNEY,Dictate d by: JEFFERSON alloantibodies. MIN CORTNEY,Dic tated Date/Time: 12:35 PM [employer] INSPECTOR Tr anscribed Date/Time: 12:35 PM CSTElectronical ly Signed By: JEFFERSON Rothman ASAD, on 11.14.2022 12:3 5 PM [facility] [place] [facility] CampusABORh2023-02-03 17:39:51 Test Item Value Reference Range Interpretation Comments ABORh. (test code = 882-1) O POS [facility] [place] [facility] CampusClot Expiration [id number] 17:39:35 Test Item Value Reference Range Interpretation Comments T & S Expiration (test code = 11/17/2022 5318) [facility] [place] [facility] CampusAntibody [id number] 17:37:51 Test Item Value Reference Range Interpretation Comments ABSC. (test code = 890-4) Negative ABSC [facility] [place] [facility] CampusFractionated Mzxflhdpe7252-90-03 14:51:54 Test Item Value Reference Range Interpretation Comments Bili Total (test 0.3 mg/dL <=1.2 Indocyanine Green (ICG) code = 1974-) may cause fal sely elevated biliru bin results. Total and direct bilirubin must not be measured from s amples containing indo cyanine green. False el evation of total bilirubin can be seen in patient s with IgG concentrations above 28 g/L. Bili Direct (test <=0.3 Indocyanin e Green (ICG) code = 1967-7) may cause fal sely elevated biliru bin results. Total and direct bilirubin must not be measured from s amples containing indo cyanine green. Bili Indirect (test See Note 0.0-0.9 Unable t o calculate code = 1970-) Indirect Bili elias result due to some par ameters are outside rep ortable range [facility] [place] [facility] CampusGlomerular Filtration Rate 2022-11-14 14:51:52 Test Item Value Reference Range Interpretation Comments eGFR (test code = 90 See_Comment The eGFRcr is calculated with 71122-9) the 2020 CKD-EP I creatinine equation using creatinine, patient's age, and sex for adults 18 years of age and older. Other fa ctors, especially musc le mass, may affect accuracy and need to be considered.A ccording to the Kidney Dise ase: Improving Global Outcomes (KDIGO) CKD Work Group 2012 Clinical Practice Guidel ine, chronic kidney disease (CKD) is defined as the abnormalities of kidney struc ture or function, prese nt for more than 3 months, with implications fo r health. CKD should be class ified by cause, GFR christian gory, and albuminuria cat egory. KDIGO guidelines prov matthew the following GFR c ategoriesStage Description GFR mL/min/1.73 m2G1* Normal or high >= 90G2* Mildly decrease d 60-89G3a Mildly to moder ately decreased 45-59 G3b Moderately to severely dec reased 30-44G4 Severely decrea sed 15-29G5 Kidney failure <15*In the absence of evid ence of kidney damage, neither G1 nor G2 fulfill criteri a for CKD. [Automated mess age] The system which ge nerated this result transmit nacho reference range: >=60 mL/ min/1.73 sq. m. The referenc e range was not used to int erpret this result as anna l/abnormal. [facility] [place] [facility] CampusMagnesium [id number] 14:51:51 Test Item Value Reference Range Interpretation Comments Magnesium (test code = 33903-9) 2.1 mg/dL 1.6-2.6 [facility] [place] [facility] CampusAlkaline Vscqhflxgiu9834-50-81 14:51:50 Test Item Value Reference Range Interpretation Comments Alk Phos (test code = 6768-6) 92 U/L 35-104 [facility] [place] [facility] CampusAlbumin [id number] 14:51:49 Test Item Value Reference Range Interpretation Comments Albumin Lvl (test code 4.3 See_Comment [Aut omated message] The = 1751-7) system which ge nerated this result tra nsmitted reference range : 3.5 - 5.2 gm/dL. The refe rence range was not used to interpret this result as normal/abnormal . [facility] [place] [facility] CampusElectrolyte Oysmr2817-15-80 14:51:48 Test Item Value Reference Range Interpretation Comments Sodium Lvl (test code = 139 See_Comment [Au tomated message] The 2950-11) system which ge nerated this result tra nsmitted reference range : 136 - 145 mEq/L. The reference range was not u sed to interpret this result as normal/abnormal . Potassium Lvl (test 3.9 See_Comment [Automa nacho message] The code = 2823-3) system which generated this result tra nsmitted reference range : 3.5 - 5.1 mEq/L. The reference range was not u sed to interpret this result as normal/abnormal . Chloride (test code = 104 See_Comment [Auto mated message] The ) system which ge nerated this result tra nsmitted reference range : 98 - 107 mEq/L. The refe rence range was not u sed to interpret this result as normal/abnormal . CO2 (test code = 27 See_Comment [Automated message] The 2028-06) system which ge nerated this result tra nsmitted reference range : 22 - 29 mEq/L. The refe rence range was not u sed to interpret this result as normal/abnormal . Anion Gap (test code = 8 See_Comment [Aut omated message] The ) system which ge nerated this result tra nsmitted reference range : 4 - 14 mEq/L. The refe rence range was not u sed to interpret this result as normal/abnormal . [facility] [place] [facility].Serum [id number] 14:51:47 Test Item Value Reference Range Interpretation Comments Creatinine (test code = 2160-0) 0.60 mg/dL 0.51-0.95 [facility] [place] [facility] CampusGlucose, [id number] 14:51:45 Test Item Value Reference Range Interpretation Comments Glucose Random (test 155 mg/dL 70-199 Effecti ve 05/07/16, the code = 2345-7) glucose refer ence intervals have been updated based o n [place] [employer] landon delines (Standards of M edical Care in Diabete s 2016. Diabetes Care 2 016; 39: S13-S22).Fastin g blood glucose:Normal: 70-99 mg/dLImpaired f asting glucose (increa sed risk for diabetes or pre-diabetes): 100-125 mg/dLDiabetes m ellitus: >/=126 mg/dL Ra ndom blood glucose:N ormal: 70-199 mg/dLNot e: Random glucose >100 mg /dL is associated with increased risk for diabetes [facility] [place] [facility] CampusUric [id number] 14:51:44 Test Item Value Reference Range Interpretation Comments Uric Acid (test code = 3084-1) 3.8 mg/dL 2.4-5.7 [facility] [place] [facility] CampusTriglycerides2023-02-03 14:51:43 Test Item Value Reference Range Interpretation Comments Trig (test code = 166 mg/dL <=149 H ATP III Cl assification 2571-8) of Serum Trigly cerides Primary Target of Therapy (in mg/dL):<150 Thwiyc148-961 Borderline high 200-499 High>=500 Very highNon-fasting triglycerides > 200 mg/dL may be fo llowed up with a fasti ng Lipid Panel. Calculated LDL- C may be falsely decr eased when non-fastin g triglycerides > 200 mg/dL. Lab Interpretation Abnormal (test code = 56129-1) [facility] [place] [facility] CampusTotal [id number] 14:51:42 Test Item Value Reference Range Interpretation Comments Total Protein (test code = 2885-2) 7.1 g/dL 6.4-8.3 [facility] [place] [facility] CampusPhosphorus [id number] 14:51:41 Test Item Value Reference Range Interpretation Comments Phosphorus (test code = 2777-1) 2.6 mg/dL 2.5-4.5 [facility] [place] [facility] CampusCalcium [id number] 14:51:40 Test Item Value Reference Range Interpretation Comments Calcium Lvl (test code = 83795-5) 9.8 mg/dL 8.4-10.2 [facility] [place] [facility] CampusAlanine [id number] 14:51:39 Test Item Value Reference Range Interpretation Comments ALT (test code = 1742-6) 23 U/L <=33 [facility] [place] [facility] CampusBUN2023-02-03 14:51:38 Test Item Value Reference Range Interpretation Comments BUN (test code = 3094-0) 14 mg/dL 6-23 [facility] [place] [facility] CampusLDH2023-02-03 14:49:10 Test Item Value Reference Range Interpretation Comments LDH (test code = 187 U/L 135-214 Results gre ater than 1651 98472-0) U/L may not be reliable due to matrix effec t with extended diluti on as it exceeds the man ufacturer's recommended pickens it. Caution should be exerc ised when interpreting batista ch values and done in con junction with clinical c ontext. [facility] [place] [facility] CampusLipase2023-02-03 14:48:17 Test Item Value Reference Range Interpretation Comments Lipase Lvl (test code = 3040-3) 25 U/L 13-60 [facility] [place] [facility] CampusAmylase [id number] 14:48:16 Test Item Value Reference Range Interpretation Comments Amylase Lvl (test code = 1798-8) 36 U/L 28-100 [facility] [place] [facility] CampusDifferential2023-02-03 14:21:10 Test Item Value Reference Range Interpretation Comments Neutrophil % (test code = 60.0 % 42.0-66.0 770-8) Lymphocyte % (test code = 24.0 % 24.0-44.0 736-9) Monocyte % (test code = 10.9 % 2.0-7.0 H 5905-5) Eosinophil % (test code = 3.3 % 1.0-4.0 713-8) Basophil % (test code = 1.4 % 0.0-1.0 H 706-2) IGRE % (test code = 0.4 % 0.0-0.4 IGRE % c ount 08539-2) includes Metamyelocytes, Myelocytes, and Promyelocytes. Neutrophil Abs (test code 4.85 K/uL 1.70-7.30 = 751-8) Lymphocyte Abs (test code 1.94 K/uL 1.00-4.80 = 731-0) Monocyte Abs (test code = 0.88 K/uL 0.08-0.70 H 742-7) Eosinophil Abs (test code 0.27 K/uL 0.04-0.40 = 711-2) Basophil Abs (test code = 0.11 K/uL 0.00-0.10 H 704-7) IG Abs (test code = 0.03 K/uL 0.00-0.04 36115-7) Lab Interpretation (test Abnormal code = 63256-7) [facility].[id number] 14:21:03 Test Item Value Reference Range Interpretation Comments WBC (test code = 8.1 K/uL 4.0-11.0 6690-2) RBC (test code = 789-8) 5.76 See_Comment H [Au tomated message] The system [employer] generated this result transmitted ref erence range: 4.00 - 5 .50 M/uL. The refer ence range was not u sed to interpret this result as normal/abnor mal. Hgb (test code = 718-7) 14.6 See_Comment [Au tomated message] The system [employer] generated this result transmitted ref erence range: 12.0 - 1 6.0 gm/dL. The refe rence range was not u sed to interpret this result as normal/abnor mal. Hct (test code = 45.3 % 37.0-47.0 4544-3) MCV (test code = 787-2) 79 fL 82-98 L MCH (test code = 785-6) 25.3 pg 27.0-31.0 L MCHC (test code = 32.2 See_Comment [Automate d message] 786-4) The system [employer] generated this result transmitted ref erence range: 31.0 - 3 6.0 gm/dL. The refe rence range was not u sed to interpret this result as normal/abnor mal. RDW-SD (test code = 45.4 fL 35.1-46.3 62707-3) RDW-CV (test code = 16.0 % 12.0-15.5 H 788-0) Platelet count (test 317 K/uL 140-440 code = 777-3) MPV (test code = 9.8 fL 4.0-10.4 64055-5) INRBC (test code = 0.0 % <=0.0 The INRBC (instrument 31937-2) NRBC) value ref lects the enumeration of nucleated red b lood cells contained in a 200uL sampleof whole blood analyzed by the instrument. Thi s value maydiffer from the NRBC value repo rted in a manual differential,wh ich is based on a 100 cell differential. Lab Interpretation Abnormal (test code = 68064-0) [facility] [place] [facility] CampusPeripheral Smear for Bone Marrow 2022-11-14 14:21:01 Test Item Value Reference Range Interpretation Comments Peripheral Smear (test code = 4273) PSMEAR [facility] CampusVRE Rectal [id number] 23:16:39 Test Item Value Reference Range Interpretation Comments Final Report (test No Vancomycin resistant code = 8488) Enterococci isolated Path Review - VRE The results have been (test code = 8485) reviewed and electronically signed by Pathologist:Michael Campbell MD, PhD #[id number] [facility] [place] [facility] CampusAnion [id number] 08:43:40 Test Item Value Reference Range Interpretation Comments Anion Gap (test code 8 See_Comment [Autom ated message] The = 67277-2) system which ge nerated this result transmit nacho reference range : 4 - 14 mEq/L. The refe rence range was not used to interpret this result as normal/abnormal . [facility] CampusChloride [id number] 08:43:39 Test Item Value Reference Range Interpretation Comments Chloride (test code = 106 See_Comment [Auto mated message] The ) system which ge nerated this result tra nsmitted reference range : 98 - 107 mEq/L. The refe rence range was not u sed to interpret this result as normal/abnormal . [facility] CampusPotassium [id number] 08:43:38 Test Item Value Reference Range Interpretation Comments Potassium Lvl (test 3.6 See_Comment [Automa nacho message] The code = 2823-3) system which generated this result tra nsmitted reference range : 3.5 - 5.1 mEq/L. The reference range was not u sed to interpret this result as normal/abnormal . [facility] [id number] 08:43:36 Test Item Value Reference Range Interpretation Comments Sodium Lvl (test code = 135 See_Comment L [Au tomated message] 2951-2) The system whic h generated this result transmitted ref erence range: 136 - 14 5 mEq/L. The refe rence range was not u sed to interpret this result as normal/abnor mal. Lab Interpretation (test Abnormal code = 20210-3) [facility] CampusAspartate Aminotransferase 2022-10-31 08:43:25 Test Item Value Reference Range Interpretation Comments AST (test code = 1920-8) 29 U/L <=32 [facility] CampusCarbon Dioxide [id number] 08:43:23 Test Item Value Reference Range Interpretation Comments CO2 (test code = 2027-) 21 See_Comment L [A utomated message] The system whic h generated this result transmitted ref erence range: 22 - 29 mEq/L. The reference r klaus was not used to interpret this result as normal/abnor mal. Lab Interpretation (test Abnormal code = 83794-8) [facility] CampusaPTT2023-01-19 09:35:53 Test Item Value Reference Range Interpretation Comments aPTT (test code = 27.8 See_Comment [Automate d message] The 82446-7) system which ge nerated this result transmit nacho reference range : 22.8 - 34.2 second(s). The reference range was not used to interpr et this result as anna l/abnormal. [facility] CampusProthrombin Euvq1402-43-07 09:35:52 Test Item Value Reference Range Interpretation Comments PT (test code = 13.6 See_Comment [Automated message] The 5902-2) system which ge nerated this result transmit nacho reference range : 11.9 - 14.1 second(s). The reference range was not used to interpr et this result as anna l/abnormal. INR (test code = 1.10 0.89-1.10 6301-6) [facility] CampusFibrinogen2023-01-19 09:35:51 Test Item Value Reference Range Interpretation Comments Fibrinogen (test code = 3255-7) 522 mg/dL 214-503 H Lab Interpretation (test code = Abnormal 96011-3) [facility] CampusD-Coseo4914-23-60 09:35:50D- Dimer<0.270.10 - 0.50 mcg/ml [facility] CenterCOVID-19 (SARS-CoV-2)Cnjeeaudxoqf-EI2151-65-18 23:30:21 Test Item Value Reference Range Interpretation Comments COVID19 Not Detected Not Detected (SARS-CoV-2) (test code = 79585-5) COVID19 SARS Inpatient Indication (test Admission code = 78382) Covid 19 Comment See Note The peter S ARS-CoV-2 (test code = [place] [address]) use on the anup s María System is a pramod l-time RT-PCR assay in tended for the qualita tive detection of SARS-CoV-2 (COV ID-19) viral RNA in nasopharyngeal swabs from either individuals fuad pected of COVID-19 by their healthcare prov ider or from any individual, inc luding individuals wit hout symptoms or oth er reasons to susp ect COVID-19. A fac t sheet for patie nts provided by the axle bearing polisher ([employer]) can be rev iewed at: https://www.fda .gov/m edia/071790/karrie nload. A fact sheet fo r Health Care pro viders is provided by the axle bearing polisher ([employer]) and can be reviewed at: https://www.fda .gov/m edia/699175/karrie nload Results must be interpreted wit hin the context of all relevant clinic al and laboratory find ings and should not form the sole basis for a diagnosis or treatment decis ion. Positive result s do not rule out bacterial infec tion or co-infection with other viruses. Negative result s do not preclude SARS-CoV-2 infe ction and must be com bined with clinical observations, p atient history, and/or epidemiological information. Th is assay has been authorized by t FDA for use only un masood Emergency Use Authorization ( EUA) in laboratories that have been CLIA-certified to perform moderate-comple xity and high-comple xity tests. The Microbiology Laboratory at [facility], CLIA Accreditation #[id number] and CAP Accreditation #[id number], verif ied the performance characteristics of this assay. Int ernal controls are us ed to monitor all sta ges of the test proces s. [facility] CampusUrinalysis Microscopic Exam 2022-10-29 18:31:55 Test Item Value Reference Range Interpretation Comments UA WBC (test code = 9 See_Comment H Some rep orting 23058-2) parameters with in the Urinalysis test have changed due to the implementation of new instrumentation in the [facility], [facility] [place] vity of measurement. Urinalysis resu lts reported by the [facility] using existing instrumentation , as well as Urinaly sis testing perform ed manually or by backup methodology at the [facility] flor l remain relative ly unchanged. New reporting ephraim eters and units will not be reported for al l campuses. [Auto mated message] The sy stem which generated this result transmit nacho reference range : 0 - 2 /HPF. The refer ence range was not u sed to interpret this result as normal/abnor mal. UA RBC (test code = 2 See_Comment [Automa nacho message] 38606-9) The system [employer] generated this result transmitted ref erence range: 0 - 2 /H PF. The reference range was not used to int erpret this result as normal/abnormal . UA Mucous (test code = NOT SEEN Not Seen-Trace 05340-4) /HPF UA Bacteria (test code NOT SEEN NOT SEEN /HPF = 56162-9) UA Squam Epi (test NOT SEEN None-Occasional code = 52408-8) /HPF Lab Interpretation Abnormal (test code = 16963-9) [facility] ShermanUrinalysis w/Microscopic if Dcdpgneou0480-99-72 18:24:15 Test Item Value Reference Range Interpretation Comments UA Color (test code = 26505-1) Colorless Straw-Yellow A UA Appear (test code = 31789-8) Clear Clear UA Glucose (test code = 5792-7) NEG NEG mg/dL UA Bili (test code = 5770-3) NEG NEG UA Ketones (test code = 5797-6) NEG NEG mg/dL UA Spec Grav (test code = 5810-7) 1.019 1.003-1.035 UA Blood (test code = 5794-3) NEG NEG UA pH (test code = 5803-2) 7.0 5.0-9.0 UA Protein (test code = 5804-0) NEG NEG mg/dL UA Urobilinogen (test code = NEG NEG 5818-0) UA Nitrite (test code = 5802-4) POS NEG A UA Leuk Est (test code = 5799-2) Moderate NEG A Lab Interpretation (test code = Abnormal 18372-0) [facility] CampusGlucose Ajeyo9551-90-22 16:35:28 Test Item Value Reference Range Interpretation Comments Glucose Level (test code 175 mg/dL 70-99 H Eff ective 05/07/16, = 2345-7) the glucose reference inter vals have been updat ed [...] associ ated with increased risk for diabetes Lab Interpretation (test Abnormal code = 80725-6) [facility] CampusTMP Interpretation Antibody Screen Bwnqkmpz2824-73-20 21:59:32 Test Item Value Reference Range Interpretation Comments TMP Auto Neg At the present ABSC Interp time, patient (test code = plasma shows no ____LALITA CARLISLE MD 7535) evidence of RBC - 30907Crabw nacho by: alloantibodies. LALITA THURSTON MD - [id number] D ate/Time: 08.15.2022 16:5 9 PM CDT Transcribed Ketan e/Time: 08.15.2022 16:5 9 PM CDTElectronical ly Signed By: LALITA FREIRE MD - [id number] on 16:59 PM [facility] CampusAntibody Nbciav4980-66-77 18:24:53 Test Item Value Reference Range Interpretation Comments ABSC. (test code = 890-4) Negative ABSC [facility] CampusABORh2022-11-04 18:24:52 Test Item Value Reference Range Interpretation Comments ABORh. (test code = 882-1) O POS [facility] CampusClot Expiration Iiox6955-35-00 18:24:49 Test Item Value Reference Range Interpretation Comments T & S Expiration (test code = 08/18/2022 5318) [facility] CampusAmylase Ceedl1139-25-47 15:26:51 Test Item Value Reference Range Interpretation Comments Amylase Lvl (test code = 1798-8) 33 U/L 28-100 [facility] CampusLipase2022-11-04 15:26:50 Test Item Value Reference Range Interpretation Comments Lipase Lvl (test code = 3040-3) 37 U/L 13-60 [facility] CampusFractionated Inyspbnvw0469-50-45 14:58:49 Test Item Value Reference Range Interpretation Comments Bili Total (test 0.3 mg/dL See_Comment Indocyanine Green (ICG) code = 1974-) may cause fal sely elevated biliru bin results. Total and direct bilirubin must not be measured from s amples containing indo cyanine green. False el evation of total bilirubin can be seen in patient s with IgG concentrations above 28 g/L. [Automated message] The system Migoa generated this result transmitted ref erence range: [...] par ameters are outside rep ortable range [facility] CampusGlomerular Filtration Rate 2022-08-15 14:58:47 Test Item Value Reference Range Interpretation Comments eGFR (test 88 See_Comment The eGFRcr is c alculated code = 12783) with the 2020 CKD-EPI creatinine equa tion [...] eria for CKD. [Automated message] The system Migoa generated this result transmitted ref erence range: >=60 mL/ min/1.73 sq. m. The refe rence range was not u sed to interpret this result as normal/abnormal . NAHUN (test Schedule in Fast code = NAHUN) Track [facility] CampusMagnesium Dvzmt7831-63-40 14:58:46 Test Item Value Reference Range Interpretation Comments Magnesium (test code = 1.8 mg/dL 1.6-2.6 ) NAHUN (test code = NAHUN) Schedule in Fast Track [facility] CampusLDH2022-11-04 14:58:45 Test Item Value Reference Range Interpretation Comments LDH (test code = 218 U/L 135-214 H Results gre ater 59658-8) than 1651 U/L m ay not be reliable due to matrix effect with extended diluti on as it exceeds t he axle bearing polisher's recommended pickens it. Caution should be exercised when interpreting batista ch values and done in conjunction wit h clinical contex t. NAHUN (test code = NAHUN) Schedule in Fast Track Lab Interpretation Abnormal (test code = 98682-3) [facility] CampusAlkaline Jglascwxymw9450-82-39 14:58:43 Test Item Value Reference Range Interpretation Comments Alk Phos (test code = 128 U/L 35-104 H 6768-6) NAHUN (test code = NAHUN) Schedule in Fast Track Lab Interpretation (test Abnormal code = 35733-2) [facility] CampusGlucose, Fghlja1290-71-60 14:58:42 Test Item Value Reference Range Interpretation [...] code = Schedule in Fast NAHUN) Track [facility] CampusAlbumin Kpert3116-67-88 14:58:41 Test Item Value Reference Range Interpretation Comments Albumin Lvl (test 4.6 See_Comment [Automate d message] code = 1751-7) The system TRU[employer]ar generated this result transmit nacho reference range : 3.5 - 5.2 gm/dL. Th e reference range was not used to interpret this result as normal/abnormal . NAHUN (test code = Schedule in Fast NAHUN) Track [facility] CampusUric Ldgt0650-31-78 14:58:40 Test Item Value Reference Range Interpretation Comments Uric Acid (test code = 5.3 mg/dL 2.4-5.7 3084-1) NAHUN (test code = NAHUN) Schedule in Fast Track [facility] CampusAspartate Aminotransferase 2022-08-15 14:58:39 Test Item Value Reference Range Interpretation Comments AST (test code 22 U/L See_Comment [Automated m essage] = 1920-8) The system Purfresh[employer] h generated this result transmitted ref erence range: <=32. Th e reference range was not used to int erpret this result as normal/abnormal . NAHUN (test code Schedule in Fast = NAHUN) Track [facility] CampusTriglycerides2022-11-04 14:58:38 Test Item Value Reference Range Interpretation Comments Trig (test code = 88 mg/dL See_Comment ATP III Cl assification of 2571-8) Serum Triglycer ides Primary Target of Therapy (in mg/dL):<150 Wihpug447-122 B orderline qyeo976-523 Hig h>=500 Very highNon-fasting triglycerides > 200 mg/dL may be followed up with a fasting Lipid P cullen. Calculated LDL- C may be falsely decreas ed when non-fasting tri glycerides >200 mg/dL. [Au tomated message] The sy stem which generated this result transmitted ref erence range: <=149. T he reference range was not u sed to interpret this result as normal/abnormal . [facility] CampusElectrolyte Ahdji6728-86-86 14:58:37 Test Item Value Reference Range Interpretation Comments Sodium Lvl (test 138 See_Comment [Automated code = 2951-2) message] The system which generated this result transmitted reference range : 136 - 145 mEq/L . The reference r klaus was not used to interpret this result as normal/abnormal . Potassium Lvl 4.1 See_Comment [Automated (test code = message] The sy stem 9813-3) which generated this result transmitted reference range : 3.5 - 5.1 mEq/L . The reference r klaus was not used to interpret this result as normal/abnormal . Chloride (test 102 See_Comment [Automated code = 2075-0) message] The system which generated this result transmitted reference range : 98 - 107 mEq/L. Th e reference range was not used to interpret this result as normal/abnormal . CO2 (test code = 27 See_Comment [Automated 2027-) message] The sy stem which generated this result transmitted reference range : 22 - 29 mEq/L. The reference range was not used to interpret this result as normal/abnormal . Anion Gap (test 9 See_Comment [Automated code = 04269-6) message] The system which generated this result transmitted reference range : 4 - 14 mEq/L. The reference range was not used to interpret this result as normal/abnormal . NAHUN (test code = Schedule in Fast NAHUN) Track [facility] CampusTotal Xruefzc8589-05-18 14:58:36 Test Item Value Reference Range Interpretation Comments Total Protein (test 7.4 g/dL 6.4-8.3 code = 2885-2) NAHUN (test code = NAHUN) Schedule in Fast Track [facility].Serum Sexnqtxzka7348-25-79 14:58:34 Test Item Value Reference Range Interpretation Comments Creatinine (test code = 0.67 mg/dL 0.51-0.95 2160-0) NAHUN (test code = NAHUN) Schedule in Fast Track [facility] CampusPhosphorus Uyfud9206-25-98 14:58:33 Test Item Value Reference Range Interpretation Comments Phosphorus (test code = 3.3 mg/dL 2.5-4.5 2777-1) NAHUN (test code = NAHUN) Schedule in Fast Track [facility] CampusCalcium Krfxl6282-29-18 14:58:32 Test Item Value Reference Range Interpretation Comments Calcium Lvl (test code 10.2 mg/dL 8.4-10.2 = 62763-4) NAHUN (test code = NAHUN) Schedule in Fast Track [facility] CampusAlanine Fxwhxzlxhuzhkybx5322-36-36 14:58:31 Test Item Value Reference Range Interpretation Comments ALT (test code 25 U/L See_Comment [Automated m essage] = 1742-6) The system Migoa generated this result transmitted ref erence range: <=33. Th e reference range was not used to int erpret this result as normal/abnormal . NAHUN (test code Schedule in Fast = NAHUN) Track [facility] CampusBUN2022-11-04 14:58:30 Test Item Value Reference Range Interpretation Comments BUN (test code = 3094-0) 14 mg/dL 6-23 [facility] CampusDifferential2022-11-04 14:21:19 Test Item Value Reference Range Interpretation [...] 0.3 % 0.0-0.4 IGRE % c ount 23430-7) includes Metamyelocytes, Myelocytes, and Promyelocytes. Neutrophil Abs (test 6.23 K/uL 1.70-7.30 code = 751-8) Lymphocyte Abs (test 2.44 K/uL 1.00-4.80 code = 731-0) Monocyte Abs (test 1.08 K/uL 0.08-0.70 H code = 742-7) Eosinophil Abs (test 0.30 K/uL 0.04-0.40 code = 711-2) Basophil Abs (test 0.07 K/uL 0.00-0.10 code = 704-7) IG Abs (test code = 0.03 K/uL 0.00-0.04 74728-9) NAHUN (test code = NAHUN) Schedule in Fast Track Lab Interpretation Abnormal (test code = 92501-7) [facility].BXG8600-75-15 14:21:08 Test Item Value Reference Range Interpretation Comments WBC (test code = 10.2 K/uL 4.0-11.0 6690-2) RBC (test code = 6.02 See_Comment H [Automated 569-8) message] The sy stem which generated this result transmitted reference range : 4.00 - 5.50 M/u L. The reference r klaus was not used to interpret this result as normal/abnormal . Hgb (test code = 15.1 See_Comment [Automated 378-7) message] The sy stem which generated this [...] RDW-SD (test code = 39.9 fL 35.1-46.3 78203-2) RDW-CV (test code = 14.5 % 12.0-15.5 788-0) Platelet count (test 280 K/uL 140-440 code = 777-3) MPV (test code = 10.6 fL 4.0-10.4 H 42707-1) INRBC (test code = 0.0 % See_Comment The INRBC 57123-4) (instrument NRB C) value reflects the enumerationof [...] Track Lab Interpretation Abnormal (test code = 57548-5) [facility] CampusIgM2022-08-05 16:31:04 Test Item Value Reference Range Interpretation Comments IgM (test code = 6023) 22 mg/dL 35-242 L Lab Interpretation (test code = Abnormal 22478-2) [facility] CampusIgG2022-08-05 16:31:03 Test Item Value Reference Range Interpretation Comments IgG (test code = 6001) 661 mg/dL 610-1616 [facility] CampusIgA2022-08-05 16:31:02 Test Item Value Reference Range Interpretation Comments IgA (test code = 5992) 110 mg/dL 85-499 [facility] CampusMD t(9;22) BCR/ABL1 Quantitative PCR Collection, Fzigw3148-71-38 15:42:49 Test Item Value Reference Range Interpretation Comments Molecular Diagnostics (Received) (test Yes code = 8400) [facility] CampusMD t(9;22) BCR/ABL1 Quantitative PCR Collection, Ukneq5036-87-46 15:42:49 Test Item Value Reference Range Interpretation Comments Molecular Diagnostics (Received) (test Yes code = 8400) [facility] CampusAdaptive clonoSEQ-Send out, Bone Qozzmc1660-02-44 19:38:53 Test Item Value Reference Range Interpretation Comments Adaptive Shipped Out Specimen for clonoSEQ (test clonoSEQ test ing was code = 03152) obtained, proc essed and sent out to the [facility].Refe r to separate [employer] website Portal for resu lts. Testing MRD-Tracking Indication (test code = 69047) NAHUN (test code = I acknowledge I NAHUN) have placed a corresponding order in [employer] Portal.->Yes [facility] CampusFlow Cytometry Specimen Collection -Bone Dbudui4838-87-66 13:59:41 Test Item Value Reference Range Interpretation Comments Flow Cytometry Yes Test performe d by:The (Received) (test code Bunny powers [facility] = 8319) [facility] AvondaleFlow Cyto metry [address] [place] [address] Beaker Ap Link (test [id number] code = 13072) [facility] NOTCH1 Exons 26, 27, 34 Collection, Gipsorso8497-02-72 21:07:27 Test Item Value Reference Range Interpretation Comments Molecular Diagnostics (Received) (test Yes code = 8400) [facility] CampusMD NOTCH1 Exons 26, 27, 34 Collection, Kfqltsda1135-19-15 21:07:27 Test Item Value Reference Range Interpretation Comments Molecular Diagnostics (Received) (test Yes code = 8400) [facility] CampusMD TP53 Collection, Nonblood 2022-02-16 21:07:26 Test Item Value Reference Range Interpretation Comments Molecular Diagnostics (Received) (test Yes code = 8400) [facility] CampusMD TP53 Collection, Nonblood 2022-02-16 21:07:26 Test Item Value Reference Range Interpretation Comments Molecular Diagnostics (Received) (test Yes code = 8400) [facility] t(9;22) BCR/ABL1 Quantitative PCR Collection, Lslyxlkl6441-99-95 21:07:25 Test Item Value Reference Range Interpretation Comments Molecular Diagnostics (Received) (test Yes code = 8400) [facility] t(9;22) BCR/ABL1 Quantitative PCR Collection, Qchiuovl1313-12-06 21:07:25 Test Item Value Reference Range Interpretation Comments Molecular Diagnostics (Received) (test Yes code = 8400) [facility] CampusFC MRD B ALL [facility], [facility] 2022-02-14 22:32:07 Test Item Value Reference Range Interpretation Comments Flow Cytometry (Received) (test code = Yes 8319) [facility] CampusFC MRD B ALL Collection, [facility] 2022-02-14 22:32:07 Test Item Value Reference Range Interpretation Comments Flow Cytometry (Received) (test code = Yes 8319) [facility] CampusMolecular Diagnostics Specimen Collection -Bone Qyeaij9595-13-26 22:07:43 Test Item Value Reference Range Interpretation Comments Molecular Diagnostics (Received) Yes (test code = 8400) Nae Ap Link (test code = 46766) [id number] [facility] CampusMolecular Diagnostics Specimen Collection -Bone Sznpcl2071-28-97 22:07:43 Test Item Value Reference Range Interpretation Comments Molecular Diagnostics (Received) Yes (test code = 8400) Nae Ap Link (test code = 16706) [id number] [facility] CampusCytogenetics Specimen Collection - Bone Poauyf6580-17-10 21:24:16 Test Item Value Reference Range Interpretation Comments Alexquinn Ap Link (test code = 78066) [id number] Cytogenetics (Received) (test code Yes = 8304) [facility] Chromosome Analysis Collection, Nsakhigd2429-44-15 21:23:58 Test Item Value Reference Range Interpretation Comments Cytogenetics (Received) (test code = Yes 8304) [facility] Chromosome Analysis Collection, [id number] 21:23:58 Test Item Value Reference Range Interpretation Comments Cytogenetics (Received) (test code = Yes 8304) [facility] BCR/ABL1 t(9;22) FISH Collection, Sngxdofc7913-68-07 21:23:57 Test Item Value Reference Range Interpretation Comments Cytogenetics (Received) (test code = Yes 8304) [facility] CampusPeripheral Smear for Bone Marrow 2022-02-14 13:13:35 Test Item Value Reference Range Interpretation Comments Peripheral Smear (test code = 4273) PSMEAR [facility]
[2022-12-26] MEDS ORDERED: CYCLOBENZAPRINE 10 MG TAB ONE (11:59)
[2022-12-26] MEDS ORDERED: KETOROLAC 30 MG/ML INJ ONE (11:59)
--- NOTE | 2022-12-26 12:30 | RAD REPORT ---
EXAM DESCRIPTION: CT - C Spine Wo Con - 12/26/2022 12:02 pm CLINICAL HISTORY: Pain. Radiculopathy COMPARISON: None. TECHNIQUE: Axial [address] images of the cervical spine were obtained without IV contrast. Sagit kiya and coronal reconstruction images generated and reviewed. All CT scans are performed using dose optimization technique as appropriate and may include automated exposure control or mA/KV adjustment according to patient size. FINDINGS: Cervical vertebral body height and alignment are normal. Multilevel degenerative changes of the endplates and facet articulations. Up to moderate disc height loss at C5-6. Small Schmorl's node formation. No bony canal stenosis. Up to mild bilateral neural for aminal narrowing at C5-6 secondary to endplate spurring. Mild atlanto odontoid degenerative changes. No fracture or acute bony abnormality. No paraspinal mass or hematoma. Visualized lung apices and intracranial structures are unremarkable. IMPRESSION: No acute osseous abnormality. Mild multilevel degenerative changes as above. MRI would p rovide improved assessment of the neural structures, as clinically indicated, given provided history of radiculopathy.
--- NOTE | 2022-12-26 12:40 | EDPHYS ---
Physician Documentation [facility] Name: Monica Fleming Age: 82 yrs Sex: Female : 1940 Arrival Date: 12/26/2022 Time: 11:44 Bed IW2 Private MD: ED Physician Amanuel Quinonez HPI: 12/26 11:48 This 82 yrs old Female presents to ER via Ambulatory with complaints of neck jh7 Pain. 11:48 82-year-old female presents with neck pain radiating to bilateral posterior shoulders jh7 over the past 3 days. The patient reports that pain only occurs with lateral rotation of the neck. Denies injury. Denies chest pain, shortness of breath, nausea, or numbness/tingling. History of hypertension, diabetes, and leukemia. Denies any allergies.. Historical: - Allergies: 11:51 No Known Allergies; hb - PMHx: 11:51 Hypertension; hb - Immunization history:: Adult Immunizations up to date. - Social history:: Smoking status: Patient denies any tobacco usage or history of. ROS: 11:48 Constitutional: Negative for fever, chills, and weight loss, Eyes: Negative for injury, jh7 pain, redness, and discharge, ENT: Negative for injury, pain, and discharge, Cardiovascular: Negative for chest pain, palpitations, and edema, Respiratory: Negative for shortness of breath, cough, wheezing, and pleuritic chest pain, Abdomen/GI: Negative for abdominal pain, nausea, vomiting, diarrhea, and constipation, Back: Negative for injury and pain, MS/Extremity: Negative for injury and deformity, Skin: Negative for injury, rash, and discoloration, Neuro: Negative for headache, weakness, numbness, tingling, and seizure. 11:48 Neck: Positive for pain with movement, Negative for tenderness. 11:48 All other systems are negative. Exam: 11:48 Constitutional: This is a well developed, well nourished patient who is awake, alert, jh7 and in no acute distress. Head/Face: Normocephalic, atraumatic. Eyes: Pupils equal round and reactive to light, extra-ocular motions intact. Lids and lashes normal. Conjunctiva and sclera are non-icteric and not injected. Cornea within normal limits. Periorbital areas with no swelling, redness, or edema. ENT: Nares patent. No nasal discharge, no septal abnormalities noted. Oropharynx with no redness, swelling, or masses, exudates, or evidence of obstruction, uvula midline. Mucous membranes moist. 11:48 Cardiovascular: Regular rate and rhythm with a normal S1 and S2. No gallops, murmurs, or rubs. Normal PMI, no JVD. No pulse deficits. Respiratory: Lungs have equal breath sounds bilaterally, clear to auscultation and percussion. No rales, rhonchi or wheezes noted. No increased work of breathing, no retractions or nasal flaring. Back: No spinal tenderness. No costovertebral tenderness. Full range of motion. Skin: Warm, dry with normal turgor. Normal color with no rashes, no lesions, and no evidence of cellulitis. MS/ Extremity: Pulses equal, no cyanosis. Neurovascular intact. Full, normal range of motion. Neuro: Awake and alert, GCS 15, oriented to person, place, time, and situation. Motor strength 5/5 in all extremities. Sensory grossly intact. Normal gait. 11:48 Neck: External neck: is normal, C-spine: appears grossly normal, ROM/movement: pain, that is moderate, with rotation to the left, with rotation to the right, with extension, Meningeal signs: are not present, nuchal rigidity, is not appreciated, Lymph nodes: no appreciated lymphadenopathy. Vital Signs: 11:51 BP 140 / 87; Pulse 87; Resp 18; Temp 98.3; Pulse Ox 98% ; Weight 63.5 kg; Height 4 ft. hb 11 in. ; Pain 9/10; 11:51 Body Mass Index 28.27 (63.50 kg, 149.86 cm) hb 11:51 Pain Scale: Adult hb MDM: 11:46 Patient medically screened. [facility] 12/26 11:52 Order name: CT C Spine; Complete Time: 12:[address] [facility] Administered Medications: 11:57 Drug: Ketorolac IM 30 mg Route: IM; Site: right deltoid; hb 11:57 Drug: Cyclobenzaprine PO 5 mg Route: PO; hb Disposition Summary: 12/26/22 12:39 Discharge Ordered Location: Home [facility] Problem: new [facility] Symptoms: have improved [facility] Condition: Stable [facility] Diagnosis - Muscle spasm [facility] Followup: [facility] - With: Private Physician - When: 2 - 3 days - Reason: Recheck today's complaints Discharge Instructions: - Discharge Summary Sheet [facility] - Muscle Cramps and Spasms [facility] Forms: - Medication Reconciliation Form [facility] - Thank You Letter [facility] Prescriptions: - Naprosyn 500 mg Oral Tablet - take 1 tablet by ORAL route 2 times per day take with food; 30 tablet; Refills: 7 0, Product Selection Permitted - Zanaflex 4 mg Oral Tablet - take 1 tablet by ORAL route every 8 hours As needed; 20 tablet; Refills: 0, jh7 Product Selection Permitted Signatures: Dispatcher [employer] Kelsie Tena RN RN Aleshia Lorenz, FIELD SERVICE TECHNICIAN FIELD SERVICE TECHNICIAN [facility]
--- NOTE | 2022-12-26 12:40 | ER ---
Nurse's Notes [facility] Name: Monica Fleming Age: 82 yrs Sex: Female : 1940 Arrival Date: 12/26/2022 Time: 11:44 Bed IW2 Private MD: Diagnosis: Muscle spasm Presentation: 12/26 11:50 Chief complaint: neck pain that radiates to bilateral shoulders x 2-3 days. Coronavirus hb screen: At this time, the client does not indicate any symptoms associated with coronavirus-19. Ebola Screen: No symptoms or risks identified at this time. Risk Assessment: Do you want to hurt yourself or someone else? Patient reports no desire to harm self or others. Onset of symptoms was December 24, 2022. 11:50 Method Of Arrival: Ambulatory hb 11:50 Acuity: KATHRINE 4 hb 11:51 Initial Sepsis Screen: Does the patient meet any 2 criteria? No. Patient's initial hb sepsis screen is negative. Does the patient have a suspected source of infection? No. Patient's initial sepsis screen is negative. Historical: - Allergies: 11:51 No Known Allergies; hb - PMHx: 11:51 Hypertension; hb - Immunization history:: Adult Immunizations up to date. - Social history:: Smoking status: Patient denies any tobacco usage or history of. Vital Signs: 11:51 BP 140 / 87; Pulse 87; Resp 18; Temp 98.3; Pulse Ox 98% ; Weight 63.5 kg; Height 4 ft. hb 11 in. ; Pain 9/10; 11:51 Body Mass Index 28.27 (63.50 kg, 149.86 cm) hb 11:51 Pain Scale: Adult hb ED Course: 11:44 Patient arrived in ED. mr 11:46 [facility] Barlow F[facility] 11:46 Amanuel Quinonez MD is Attending Physician. 7 11:51 Triage completed. hb 11:52 Arm band placed on. hb 12:03 CT C Spine In Process Unspecified. EDMS Administered Medications: 11:57 Drug: Ketorolac IM 30 mg Route: IM; Site: right deltoid; hb 11:57 Drug: Cyclobenzaprine PO 5 mg Route: PO; hb Outcome: 12:39 Discharge ordered by MD. jh7 Signatures: Dispatcher [employer] Adele Garcia mr Del ValleterKelsie, RN RN Aleshia Lorenz, [employer] jh7 Corrections: (The following items were deleted from the chart) 11:53 11:51 Pulse 87bpm; Resp 18bpm; Pulse Ox 98%; Temp 98.3F; 63.5 kg; Height 4 ft. 11 in.; hb BMI: 28.2; Pain 06/21, Adult; hb
== END 2022-12-26 13:12 | disposition home or self-care (01) ==
LOC: ER 11:37
DX: M62.838 Other muscle spasm (principal)
CPT/HCPCS: 72125; 96372; 99283